=== PATIENT | female | born 1940 | race Caucasian/White ===

== ENCOUNTER → 2017-07-16 | Outpatient (CLI) | payer MEDICARE ==
[2017-07-16 09:12] LABS: Anisocytosis Slight; Appearance,Urine Clear (Clear); Bilirubin,Urine Negative (Negative); CH 27.3; CHCM 30.7; Glucose,Urine (UA) Negative (Negative); HCT 32.4 % (34.0-46.0); HDW 2.69; Hypochromasia Moderate; Ketones,Urine Negative (Negative); Leukocyte Esterase,Urine Negative (Negative); MCH 27.7 pg (25.0-35.0); MCV 89.5 fL (80.0-100.0); Mean Platelet Volume 7.1; Nitrite,Urine Negative (Negative); PH, Urine 5.5 (5.0-8.0); Protein,Urine Negative (Negative); RBC 3.62 m/uL (3.80-5.40); RDW 16.3 % (11.5-15.5); Specific Gravity,Urine 1.014 (1.001-1.035); UA Billing (MACRO vs. MICRO) CHEM; Urobilinogen,Urine <2.0 mg/dL (<2.0); WBC 4.3 k/uL (3.8-10.6)
[2017-07-16 09:16] LABS: INR 3.3 (<1.2); Partial Thromboplastin Time 48.6 sec (22.0-30.0)
[2017-07-16 09:34] LABS: ALT 23 U/L (9-52); AST 14 U/L (14-36); Alkaline Phosphatase 95 U/L (38-126); Anion Gap 8 mmol/L; Blood Urea Nitrogen 15 mg/dL (7-17); Calcium 9.3 mg/dL (8.4-10.2); Carbon Dioxide 27 mmol/L (22-30); Chloride 108 mmol/L (98-107); Glucose 104 mg/dL (74-99); Non-African American GFR(MDRD) >60 (>60 ml/min/1.73 sqM); Potassium 4.7 mmol/L (3.5-5.1); Sodium 143 mmol/L (137-145); Total Bilirubin 0.4 mg/dL (0.2-1.3); Total Protein 6.2 g/dL (6.3-8.2)
== END | disposition home or self-care (01) ==
LOC: LABWHC1 08:23
PROVIDERS: ATTEND Orthopaedic Surgery Sports Medicine
DX: Z01.810 Encounter for preprocedural cardiovascular examination (principal); Z01.812 Encounter for preprocedural laboratory examination
CPT/HCPCS: 36415; 80053; 81003; 85027; 85610; 85730; 87070

== ENCOUNTER 2017-08-07 12:54 | Inpatient (IN) | payer MEDICARE ==
[2017-07-31 10:43] VITALS: BMI 33.8
[~2017-08-07 12:54] MED LIST: ACETAMINOPHEN TAB 500 MG TAB PO ONE; DEXAMETHASONE SOD PHOSPHATE 10 MG/ML 1 ML VIAL IV ONE; HYDROmorphone 0.5 MG/0.5 ML SYRINGE IVP PRN; MELOXICAM 7.5 MG TAB PO ONE; ONDANSETRON 4 MG/2 ML VIAL IVP ONE; ROPIVACAINE 246.25 MG, EPINEPHrine 0.5 MG, KETOROLAC 30 MG, cloNIDine HCL/PF 80 MCG, WA... MISCELLANE ONE; TRANEXAMIC ACID 1,000 MG in SODIUM CHLORIDE 0.9% 100 ML IVPB ONE; ceFAZolin IN SWFI 2 GM/20 ML SYRINGE IVP ONE
[2017-08-07] MEDS ORDERED: LIDOCAINE 1% 20 ML VIAL (10MG/ML) FOR IV START INTRADERMA ONE (13:20)
[2017-08-07] MEDS: LACTATED RINGERS 1,000 ML IV SCH ×2 (13:25→18:17)
[2017-08-07 13:31] LABS: Anisocytosis Slight; Basophils % (A) 0 %; CH 27.3; CHCM 31.2; Eosinophils # (A) 0.1 k/uL (0-0.7); Eosinophils % (A) 1 %; HCT 34.7 % (34.0-46.0); HDW 2.75; HGB 11.1 gm/dL (11.4-16.0); Hypochromasia Slight; Luc # (Auto) 0.06; Luc % (Auto) 1; Lymphocytes # (A) 1.4 k/uL (1.0-4.8); Lymphocytes % (A) 28 %; MCH 28.2 pg (25.0-35.0); MCHC 32.1 g/dL (31.0-37.0); Monocytes # (A) 0.2 k/uL (0-1.0); Monocytes % (A) 4 %; Neutrophils # (A) 3.4 k/uL (1.3-7.7); Neutrophils % (A) 66 %; RBC 3.94 m/uL (3.80-5.40); RDW 16.6 % (11.5-15.5); WBC 5.2 k/uL (3.8-10.6)
[2017-08-07 13:39] LABS: INR 3.8 (<1.2); Prothrombin Time 36.7 sec (9.0-12.0)
[2017-08-07 13:45] LABS: Anion Gap 10 mmol/L; Blood Urea Nitrogen 14 mg/dL (7-17); Carbon Dioxide 23 mmol/L (22-30); Chloride 107 mmol/L (98-107); Glucose 112 mg/dL (74-99); Non-African American GFR(MDRD) >60 (>60 ml/min/1.73 sqM); Potassium 4.5 mmol/L (3.5-5.1); Sodium 140 mmol/L (137-145)
[2017-08-07] MEDS ORDERED: SODIUM CHLORIDE 0.9% 100 ML BAG ONE (14:08)
[2017-08-07] MEDS ORDERED: SUCCINYLCHOLINE CHLORIDE 100 MG/5 ML SYR IV ONE (14:08)
[2017-08-07] MEDS ORDERED: LIDOCAINE 1% INJ 10MG/ML (20 ML MDV) ONE (14:08)
[2017-08-07] MEDS ORDERED: fentaNYL (PF) 50 MCG/ML 2 ML AMP ONE (14:08)
[2017-08-07] MEDS ORDERED: PROPOFOL 10 MG/ML 20 ML VIAL IV ONE (14:08)
[2017-08-07] MEDS ORDERED: HYDROmorphone (PF) 1 MG/ML ONE (14:08)
[2017-08-07] MEDS ORDERED: ePHEDrine 50 MG/ML 1 ML AMP ONE (14:08)
[2017-08-07] MEDS ORDERED: TRANEXAMIC ACID 1,000 MG/10 ML VIAL ONE (14:08)
[2017-08-07] MEDS ORDERED: NALOXONE 0.4 MG/ML 1 ML VIAL IV PRN (14:13)
[2017-08-07] MEDS ORDERED: HYDROmorphone 0.5 MG/0.5 ML SYRINGE IVP PRN ×3 (14:13)
[2017-08-07] MEDS ORDERED: BISACODYL 10 MG SUPP RECTAL PRN (14:13)
[2017-08-07] MEDS ORDERED: NA PHOS,M-B/NA PHOS,DI-BA 133 ML ENEMA RECTAL PRN (14:13)
[2017-08-07] MEDS ORDERED: TEMAZEPAM 15 MG CAP PO PRN (14:13)
[2017-08-07] MEDS ORDERED: MAGNESIUM HYDROXIDE 2,400 MG/10 ML CUP PO PRN (14:13)
[2017-08-07] MEDS ORDERED: DIAZEPAM 5 MG TAB PO PRN (14:13)
[2017-08-07] MEDS ORDERED: traMADol 50 MG TAB PO PRN (14:13)
[2017-08-07] MEDS ORDERED: hydrOXYzine PAMOATE 25 MG CAP PO PRN (14:13)
[2017-08-07] MEDS ORDERED: ACETAMINOPHEN TAB 325 MG TAB PO PRN (14:13)
[2017-08-07] MEDS ORDERED: ONDANSETRON 4 MG/2 ML VIAL IVP PRN (14:13)
--- NOTE | 2017-08-07 17:07 | OP ---
OPERATIVE REPORT DATE OF PROCEDURE: 08/07/2017. PREOPERATIVE DIAGNOSIS: Left knee osteoarthrosis. POSTOPERATIVE DIAGNOSIS: Same. PROCEDURE PERFORMED: Left total knee arthroplasty. SURGEON: Bin Lovett MD. PRE K SPECIAL EDUCATION TEACHER: Dante STALLWORTH. ANESTHESIA: Was general endotracheal. ESTIMATED BLOOD LOSS: Was 100 mL. TOURNIQUET TIME: Was 47 minutes 250 mmHg. COMPLICATIONS: None apparent. DRAINS: None. DISPOSITION: Postanesthesia care unit. INDICATIONS: Lynda Renner is a very pleasant, 77-year-old female with longstanding history of left knee pain. History and physical examination are consist with advanced left knee osteoarthrosis. She has been through significant nonoperative management up to this point. Further treatment options were discussed and she has decided to go forward with left total knee arthroplasty. The risks of procedure were discussed with her in detail. These risks include, but are not limited to, risk of infection, nerve damage, bleeding, pain, and a small risk of deep vein thrombosis which could lead to fatal pulmonary embolism. There is also risk of loosening of the implant which could require revision operation. The patient understands these risks. All of her questions were answered to her satisfaction. Appropriate informed consent was obtained. PROCEDURE: The patient identified in preoperative holding area. Surgical sites marked by both the patient myself. She was given 2 g of Ancef IV for prophylactic purposes. She was then transferred to the operative suite. She was placed supine on the operative table. General anesthetic was then administered dosed per the anesthesia without apparent complication. Examination under anesthesia was then performed. The patient she had full extension. She had 100 degrees of flexion. The medial collateral ligament lateral collateral ligaments and posterior cruciate ligaments were stable. Tourniquet was then placed high on the left upper thigh well-padded in preparation for surgery. The patient's left lower extremity was then prepped and draped in usual sterile fashion. Standard surgical pause undertaken to ensure that we were operating on the correct site and that appropriate preoperative antibiotics were given. All staff in the room in agreement and we proceeded. The outlines of the patella were marked surgical pen. A planned 12 cm vertical incision centered over the patella was marked surgical pen. The leg was then exsanguinated with an Esmarch dressing. The knee was then flexed and tourniquet was inflated to 250 mmHg. The total tourniquet time for the procedure was 47 minutes. Incision was then made with a 10 blade scalpel. Dissection was carried down sharply overlying fascia. Great care was taken to minimize the skin flaps. The knee was then exposed using a standard medial parapatellar approach. A small cuff of quadriceps tendon was left for suturing. She was in a mild amount of varus preoperatively. A standard medial release was then made. Superficial medial collateral ligament was dissected off of the bone around the posterior aspect of the proximal tibia. The medial meniscus was then excised as well. The lateral meniscus was also released anteriorly. The leg was then externally rotated. The patella was everted. The knee was flexed. The retractors were then placed to protect the collateral ligaments. I then proceeded to remove the infrapatellar fat pad. This was excised sharply tangentially with fibers of the patellar tendon. I then proceeded to remove peripheral osteophytes. This was done with a rongeur. I then proceeded with the distal femoral resection. She did have near full extension. A planned 9 mm resection was then done. The femoral canal was then entered in the midline of the femur approximately 10 mm anterior to the origin of the posterior cruciate ligament. The vishal was then advanced down the center of the femur and placed intramedullary. Based on preop radiographs the angle between the anatomic and mechanical axis of the femur was approximately 4-5 degrees. The valgus angle of this distal femoral cutting guide was then set at 4 degrees for the left knee. The distal femoral cutting guide was then advanced over the intramedullary vishal. This was seated firmly against the femur. I then as mentioned planned to take 9 mm off the distal femur. The cutting block was then secured to the femur with pins. The jig was then removed. The distal femoral cut was made through the slot of the block. The pins were then removed. The distal femoral cutting block was removed. The accuracy of the distal femoral cuts was checked with 2 flat bars. I then proceed with femoral sizing. The posterior referencing sizing guide was held firmly against the resected distal surface of the femur. Posterior condyles were resting on the posterior plane of the guide. The sizing stylus was then placed onto the anterior femur. The size was measured as a size 6. I then assessed for femoral rotation. Plan was for 3 degrees of external rotation. 3 degrees of external rotation was placed onto the jig. These holes were then marked. I then confirmed the rotation by 3 separate methods. This is done using epicondylar axis as well as Whitesides line and posterior referencing. It was deemed that the external rotation was proper. I then went forward with placing the femoral cutting block. This placed over the previously placed pin holes. The Noble wing was then placed onto the anterior slots to ensure that we would not notch the anterior femur with the anterior femoral cut. I then proceeded with the anterior femoral cut. This was flushed with the anterior cortex of the femur. Posterior cuts were then made followed by the anterior chamfer cut, and then the posterior chamfer cut. The cutting block was then removed. Throughout the resection the collateral ligaments were protected with retractors. I then placed a trial size 6 femur. It fit very nicely. It was slightly wide mediolateral but the narrow would be nice and would fit nice and it fit flush with the distal end of the femur. The drill holes were then made. I then proceeded with the tibial cut. Planned for cruciate retaining knee. The guide was placed and set for varus valgus and for slope. The height was set for approximate 2 mm resection from the medial tibial plateau which was the lower side. I was happy with the alignment and amount of resection. The cutting block was then pinned to the proximal tibia. The alignment vishal was removed and the proximal tibia was resected with a reciprocating saw. Again this was done with retractors protecting the collateral ligaments as well as the posterior cruciate ligament. I then proceeded to evaluate the flexion and extension gaps. A 10 mm block was then placed. The flexion-extension gaps were equal. I then proceeded with resection of posterior osteophytes. She had very minimal posterior osteophytes. This was done with curved osteotome. This resected the posterior osteophytes and posterior capsule stripping was also done off the posterior aspect of the femur at this time. The osteophytes were removed. I then proceed with resection of the patella. The thickness of patella was measured using the caliper. The thickness was 20-22 mm. The thickness of the anticipated patellar dome was taken into account. The resection was then performed and confirmed to be equal in 4 quadrants using a caliper. Approximately 14 mm of bone remained after the resection. A 32 x 8.5 mm patellar trial was then placed. The holes were then drilled. The trial was then placed. I then proceeded with sizing the tibial plate. A size D tibial plate fit very nicely. I then placed the trial femur the tibial tray and the patellar button. A 10 mm trial insert was also placed. I then trialed up to a 14 mm insert. The components fit very nicely. She had full flexion extension. The extension flexion gaps were equal and stable to both varus and valgus stress. The patella tracked appropriately. The tibial tray rotation was marked with a Bovie. This was externally rotated properly. I then proceed with tibial preparation. I first drilled the femoral holes and removed femoral component. The tibial tray was then set for proper external rotation, as well as mediolateral placement onto the tibia. It was then pinned into place. I then proceeded with punching the keel. I then decided to proceed with cementing of all of our components. The knee was thoroughly irrigated with sterile saline solution via pulse lavage. The lateral geniculate artery was identified and cauterized. All blood was removed from the bone of the tibia femur and patella with pulse lavage. I then proceed with cementing. Two packs of antibiotic bone cement were prepared on the back table by the rn surgical. I then proceed with cementing of the tibia first. The cement was impacted into the keel as well as deeply seated into the bone. A second coat of cement was then placed. The tibia was then impacted into place. Excess cement was removed with Jaiden's and jokers. I then proceed with cementing the femoral component. Femoral component was also cemented using standard technique. Excess cement was removed. A 14 mm trial insert was then placed into the knee. It was brought into full extension with a constant axial load placed until the cement had hardened. The patellar component was then cemented. This was held firmly with a compressive device until the cement dried. When the cement had dried, the knee was taken out of extension. All excess cement was removed from around the prosthesis. I then trialed the knee with the 14 mm insert. The flexion-extension gaps were appropriate. The knee was stable. It came into full extension. I decided to go forward withy a 14 mm cross-linked cruciate-retaining tibial insert. Polyethylene was then placed onto the tibial tray and locked into place. The knee was then reduced. The knee was again further irrigated with sterile saline solution with antibiotic added. The tourniquet was then deflated. The total tourniquet time for the procedure was 47 minutes at 250 mmHg of mercury. Final components were Migel persona size 6 narrow cruciate-retaining femoral component, a size D tibial tray, a 14 mm cruciate-retaining polyethylene insert, and a 32 x 8.5 mm patella. I then proceeded with closure. Again, the knee was thoroughly irrigated. The quadriceps tendon and medial retinaculum were reapproximated with #2 Ethibond suture. The extensor mechanism was then closed with a running #2 Quill suture. Subcutaneous tissues were then closed with 2-0 Vicryl interrupted suture. The skin was closed in a running 3-0 Quill suture. Dermabond was applied to the incision. Sterile compressive dressing was then applied. All sponge, needle counts were deemed correct prior to closure. The patient tolerated the procedure apparent complication. She was transferred recovery room in stable condition. MMLISA / NHUNGN: [id number] /
--- NOTE | 2017-08-07 19:05 | XR ---
EXAMINATION TYPE: XR knee limited LT, 2 VIEWS DATE OF EXAM ORDERED: 08/07/2017 HISTORY: Postop left knee arthroplasty. COMPARISON: None. FINDINGS: A left knee arthroplasty has been performed. Prosthetic elements appear in good position. There is subcutaneous and intra-articular air. IMPRESSION: STATUS POST LEFT ARTHROPLASTY.
[2017-08-07] MEDS: SENNOSIDES-DOCUSATE SODIUM 1 EACH TAB PO SCH (21:02)
[2017-08-07] MEDS: MONTELUKAST 10 MG TAB PO SCH ×2 (21:02→21:30)
[2017-08-07] MEDS: ATORVASTATIN 10 MG TAB PO SCH (21:02)
[2017-08-07] MEDS: HYDROcodone/APAP 7.5-325MG 1 EACH TAB PO PRN (21:02)
[2017-08-07] MEDS: ceFAZolin IN SWFI 2 GM/20 ML SYRINGE IVP SCH (21:02)
[2017-08-08] MEDS: ceFAZolin IN SWFI 2 GM/20 ML SYRINGE IVP SCH (03:34)
[2017-08-08] MEDS: HYDROcodone/APAP 7.5-325MG 1 EACH TAB PO PRN ×4 (03:34→21:30)
[2017-08-08] MEDS: LACTATED RINGERS 1,000 ML IV SCH ×4 (04:42→22:00)
[2017-08-08] MEDS: LEVOTHYROXINE 50 MCG TAB PO SCH (06:21)
[2017-08-08 07:33] LABS: INR 4.2 (<1.2)
[2017-08-08 07:43] LABS: Anisocytosis Slight; Basophils % (A) 0 %; CH 27.3; CHCM 30.7; Eosinophils % (A) 0 %; HCT 27.4 % (34.0-46.0); HDW 2.64; Hypochromasia Moderate; Luc # (Auto) 0.08; Luc % (Auto) 2; Lymphocytes # (A) 1.1 k/uL (1.0-4.8); Lymphocytes % (A) 22 %; MCHC 31.3 g/dL (31.0-37.0); MCV 89.6 fL (80.0-100.0); Mean Platelet Volume 7.1; Monocytes # (A) 0.2 k/uL (0-1.0); Monocytes % (A) 4 %; Neutrophils # (A) 3.5 k/uL (1.3-7.7); Neutrophils % (A) 72 %; RBC 3.06 m/uL (3.80-5.40); RDW 16.2 % (11.5-15.5); WBC 4.9 k/uL (3.8-10.6); WBC (Perox) 5.36
[2017-08-08 07:45] LABS: HGB 8.6 gm/dL (11.4-16.0)
[2017-08-08] MEDS: LISINOPRIL 20 MG TAB PO SCH (08:53)
[2017-08-08] MEDS: ENOXAPARIN 40 MG/0.4 ML SYRINGE SQ SCH (08:55)
--- NOTE | 2017-08-08 09:09 | P.PN ---
Subjective Progress Note Date: 08/08/17 Principal diagnosis: S/P left TKA Patient is seen at bedside this morning. She is postop day #1 from a left total knee arthroplasty. She has pain at the surgical site as expected but denies any new complaints. She denies numbness, tingling or calf pain. Review of systems is negative for fever, chills, chest pain, shortness of breath or other. Objective - Vital Signs Vital signs: Vital Signs Temp 96.1 F L 08/08/17 07:12 Pulse 78 08/08/17 07:12 Resp 16 08/08/17 07:12 BP 100/59 08/08/17 07:12 Pulse Ox 100 08/08/17 07:12 Intake & Output 08/07/17 08/08/17 08/08/17 18:59 06:59 18:59 Intake Total 900 1500 Output Total 100 Balance 800 1500 Intake: IV 900 Intake, IV Titration 1000 Amount Lactated Ringers 1,000 ml 1000 @ 100 mls/hr IV .Q10H [facility] Rx#:[id number] Oral 500 Output: Estimated Blood Loss 100 Other: Voiding Method Toilet # Voids 1 - Exam Inspection reveals a benign surgical wound. There is no active bleeding or drainage. Neurovascular status is intact throughout the lower extremity with motor and sensation fully intact. Calf is soft and nontender. 2+ dorsalis pedis pulse and less than 2 second cap refill is present. - Constitutional General appearance: Present: no acute distress - Psychiatric Psychiatric: Present: A&O x's 3, appropriate affect, intact judgment & insight - Labs CBC & Chem 7: 08/08/17 06:50 08/07/17 13:20 Labs: Abnormal Lab Results - Last 24 Hours (Table) 08/07/17 08/07/17 08/07/17 Range/Units 13:20 13:20 13:20 RBC (3.80-5.40) m/uL Hgb 11.1 L (11.4-16.0) gm/dL Hct (34.0-46.0) % RDW 16.6 H (11.5-15.5) % Plt Count (150-450) k/uL PT 36.7 H (9.0-12.0) sec INR 3.8 H (<1.2) Glucose 112 H (74-99) mg/dL 08/08/17 08/08/17 Range/Units 06:50 06:50 RBC 3.06 L (3.80-5.40) m/uL Hgb 8.6 L D (11.4-16.0) gm/dL Hct 27.4 L (34.0-46.0) % RDW 16.2 H (11.5-15.5) % Plt Count 124 L (150-450) k/uL PT 41.0 H (9.0-12.0) sec INR 4.2 H (<1.2) Glucose (74-99) mg/dL Assessment and Plan (1) S/P total knee arthroplasty Narrative/Plan: She will continue with routine postop orthopedic protocol including pain management, wound care, physical therapy, DVT prophylaxis and medical management. Expect that she will transfer to rehab in 2 days. Current Visit: Yes Status: Acute Priority: Medium Code(s): Z96.659 - PRESENCE OF UNSPECIFIED ARTIFICIAL KNEE JOINT SNOMED Code(s): 4206413414460 Time with Patient: Less than 30
[2017-08-08] MEDS: BISACODYL 5 MG TABLET.DR PO SCH (10:42)
[2017-08-08] MEDS: MULTIVITAMINS, THERA 1 EACH TAB PO SCH (12:23)
--- NOTE | 2017-08-08 14:19 | P.DS ---
Providers Date of admission: 08/07/17 12:54 Expected date of discharge: 08/08/17 Attending physician: Bin Lovett Consults: 08/07/17 14:13 Consult Physician Routine Consulting Provider: Isaak Caceres Reason/Comments: post op medical management Do you want consulting provider notified?: Yes Primary care physician: Isaak Caceres - Discharge Diagnosis(es) (1) S/P total knee arthroplasty Patient was admitted to the OR on 08/07/17 to undergo left total knee arthroplasty. She had failed conservative measures as an outpatient and desired to proceed with elective surgery after given informed consent. She underwent the above procedure which he tolerated well without complication. Postoperative hospital course has remained without complication. On day of discharge she is afebrile, vital signs stable, labs within acceptable ranges, tolerating by mouth meds and diet, voiding without difficulty, positive flatus, denies abdominal pain or calf pain, pain is controlled on oral pain medication and has no new complaints. Wound is benign, neurovascular status is intact, calf is soft and nontender, abdomen soft and nontender. Review of systems is negative for numbness, tingling, fever, chills, chest pain, shortness breath, nausea, vomiting, dizziness, headaches, slurred speech or other. Current Visit: Yes Status: Acute Priority: Medium Procedures: Left TKA Patient Condition at Discharge: Good Plan - Discharge Summary Discharge Rx Participant: Yes New Discharge Prescriptions: New Docusate [Colace] 100 mg PO BID #60 capsule Enoxaparin [Lovenox] 40 mg SQ DAILY 14 Days #14 syringe HYDROcodone/APAP 7.5-325MG [[place] 7.5-325] 1 - 2 each PO Q6HR PRN #90 tab PRN Reason: Pain No Action Ramipril 10 mg PO QAM Loratadine [Claritin] 10 mg PO DAILY Atorvastatin [Lipitor] 10 mg PO HS Montelukast [Singulair] 10 mg PO HS Levothyroxine Sodium [Synthroid] 50 mcg PO QAM Fluticasone Nasal [place] [Flonase Nasal [place]] 1 spr EA NOSTRIL HS Bisacodyl [Dulcolax] 5 mg PO DAILY Fish Oil/Dha/Epa [Fish Oil 1,200 mg Fish Oil] 1 cap PO DAILY Multivitamins, Thera [Multivitamin (formulary)] 1 tab PO DAILY Biotin 5 mg PO DAILY Cetirizine HCl [Zyrtec] 10 mg PO DAILY Discharge Medication List Atorvastatin [Lipitor] 10 mg PO HS 07/30/16 [History] Fluticasone Nasal [place] [Flonase Nasal [place]] 1 spr EA NOSTRIL HS 07/30/16 [ History] Levothyroxine Sodium [Synthroid] 50 mcg PO QAM 07/30/16 [History] Loratadine [Claritin] 10 mg PO DAILY 07/30/16 [History] Montelukast [Singulair] 10 mg PO HS 07/30/16 [History] Ramipril 10 mg PO QAM 07/30/16 [History] Biotin 5 mg PO DAILY 07/31/17 [History] Bisacodyl [Dulcolax] 5 mg PO DAILY 07/31/17 [History] Fish Oil/Dha/Epa [Fish Oil 1,200 mg Fish Oil] 1 cap PO DAILY 07/31/17 [History] Multivitamins, Thera [Multivitamin (formulary)] 1 tab PO DAILY 07/31/17 [History ] Cetirizine HCl [Zyrtec] 10 mg PO DAILY 08/07/17 [History] Docusate [Colace] 100 mg PO BID #60 capsule 08/08/17 [Rx] Enoxaparin [Lovenox] 40 mg SQ DAILY 14 Days #14 syringe 08/08/17 [Rx] HYDROcodone/APAP 7.5-325MG [[place] 7.5-325] 1 - 2 each PO Q6HR PRN #90 tab [Rx] Follow up Appointment(s)/Referral(s): Milana Morris, [NON-STAFF] - As Needed Bin Lovett MD [STAFF PHYSICIAN] - 2 Weeks Activity/Diet/Wound Care/Special Instructions: Keep wound clean and dry Take meds as directed Follow-up with Dr. Lovett in office Weight-bear as tolerated May shower in 72 hours Discharge Disposition: TRANSFER TO SNF/ECF
--- NOTE | 2017-08-08 14:52 | P.CONS ---
History of Present Illness - Reason for Consult Consult date: 08/08/17 Medical management - History of Present Illness This is a 77-year-old female patient of Dr. Caceres with a past medical history of hypertension, hyperlipidemia, hypothyroidism, osteoarthritis, low- grade B-cell lymphoma, antiphospholipid antibody syndrome followed by Dr. Eid. Patient has been admitted to the hospital on the care of Dr. Lovett status post left total knee arthroplasty. Patient has had no postop complications. She has been afebrile. She has noted to have a drop in her hemoglobin from 11 to 8.6 with no plan for transfusion. Blood pressure has been on the low side but stable.INR is noted to be elevated at 4.2 and patient chronically runs about 3.5-3.8. patient is concerned about a rash on her right hand that is not itchy, no petechiae. This is not present anywhere else on her body. She does state that she was quite swollen yesterday but this is improved. She is complaining of knee pain after ambulating. Review of Systems All systems: negative Constitutional: Denies chills, Denies fever Eyes: denies blurred vision, denies pain Ears, nose, mouth and throat: Denies headache, Denies sore throat Cardiovascular: Denies chest pain, Denies shortness of breath Respiratory: Denies cough Gastrointestinal: Denies abdominal pain, Denies diarrhea, Denies nausea, Denies vomiting Genitourinary: Denies dysuria, Denies hematuria Musculoskeletal: Denies myalgias Musculoskeletal: left: knee pain Integumentary: Reports rash, Denies pruritus Neurological: Denies numbness, Denies weakness Psychiatric: Denies anxiety, Denies depression Endocrine: Denies fatigue, Denies weight change Past Medical History Past Medical History: Asthma, Cancer, Hyperlipidemia, Hypertension, Osteoarthritis (OA), Thyroid Disorder Additional Past Medical History / Comment(s): chronic anemia, antiphospholipid antibody syndrome, enlarged spleen,bronchial asthma with upper resp infections., constipation,low grade B cell lymphoma Aug 2016-no chemo or radiation, osteoporosis History of Any Multi-Drug Resistant Organisms: None Reported Past Surgical History: Adenoidectomy, Cholecystectomy, Orthopedic Surgery, Tonsillectomy Additional Past Surgical History / Comment(s): Left knee arthoscopy x2, D&C, Colonoscopy, EGD. Past Anesthesia/Blood Transfusion Reactions: Motion Sickness, Postoperative Nausea & Vomiting (PONV) Additional Past Anesthesia/Blood Transfusion Reaction / Comm: no hx blood transfusion Past Psychological History: No Psychological Hx Reported Smoking Status: Never smoker Past Alcohol Use History: Occasional Additional Past Alcohol Use History / Comment(s): patient is a lifelong nonsmoker. She drinks 1-2 glasses of wine per week. No illicit drug use. Past Drug Use History: None Reported - Past Family History Father Family Medical History: Cancer Additional Family Medical History / Comment(s): father has history of renal failure. Mother Family Medical History: AFIB Additional Family Medical History / Comment(s): mother has history of atrial fibrillation Sister(s) Additional Family Medical History / Comment(s): sister has history of thyroid problems. Medications and Allergies Home Medications Medication Instructions Recorded Confirmed Type Atorvastatin [Lipitor] 10 mg PO HS 07/30/16 08/07/17 History Fluticasone Nasal [place] [Flonase 1 spr EA NOSTRIL HS 07/30/16 08/07/17 History Nasal [place]] Levothyroxine Sodium [Synthroid] 50 mcg PO QAM 07/30/16 08/07/17 History Loratadine [Claritin] 10 mg PO DAILY 07/30/16 08/07/17 History Montelukast [Singulair] 10 mg PO HS 07/30/16 08/07/17 History Ramipril 10 mg PO QAM 07/30/16 08/07/17 History Biotin 5 mg PO DAILY 07/31/17 08/07/17 History Bisacodyl [Dulcolax] 5 mg PO DAILY 07/31/17 08/07/17 History Fish Oil/Dha/Epa [Fish Oil 1,200 1 cap PO DAILY 07/31/17 08/07/17 History mg Fish Oil] Multivitamins, Thera [Multivitamin 1 tab PO DAILY 07/31/17 08/07/17 History (formulary)] Cetirizine HCl [Zyrtec] 10 mg PO DAILY 08/07/17 08/07/17 History Docusate [Colace] 100 mg PO BID #60 capsule 08/08/17 Rx Enoxaparin [Lovenox] 40 mg SQ DAILY 14 Days #14 syringe 08/08/17 Rx HYDROcodone/APAP 7.5-325MG [[place] 1 - 2 each PO Q6HR PRN #90 tab 08/08/17 Rx 7.5-325] Allergies Allergy/AdvReac Type Severity Reaction Status Date / Time Penicillins Allergy Rash/Hives Verified 08/07/17 13:15 omeprazole AdvReac Nausea & Verified 08/07/17 13:15 Vomiting & Diarrhea Physical Exam Vitals: Vital Signs Temp Pulse Pulse Pulse Resp BP BP 08/08/17 07:12 96.1 F L 78 16 100/59 08/08/17 00:05 97.7 F 68 16 111/75 08/07/17 20:53 96.9 F L 72 16 115/57 08/07/17 19:25 74 106/55 08/07/17 19:10 73 99/56 08/07/17 18:55 78 103/63 08/07/17 18:40 71 101/66 08/07/17 18:25 78 105/51 08/07/17 18:10 75 112/62 08/07/17 17:55 64 107/54 08/07/17 17:40 72 103/61 08/07/17 17:25 97.7 F 83 16 113/56 08/07/17 17:00 82 16 118/57 08/07/17 16:43 85 18 118/56 08/07/17 16:30 90 18 124/59 08/07/17 16:07 98.1 F 95 16 125/62 08/07/17 13:13 97.7 F 104 H 18 116/70 Pulse Ox 08/08/17 07:12 100 08/08/17 00:05 98 08/07/17 20:53 95 08/07/17 19:25 08/07/17 19:10 08/07/17 18:55 08/07/17 18:40 08/07/17 18:25 08/07/17 18:10 08/07/17 17:55 08/07/17 17:40 08/07/17 17:25 95 08/07/17 17:00 94 L 08/07/17 16:43 92 L 08/07/17 16:30 92 L 08/07/17 16:07 95 08/07/17 13:13 96 Intake and Output 08/07/17 08/08/17 08/08/17 22:59 06:59 14:59 Intake Total 50 1500 Output Total 100 Balance -50 1500 Intake: IV 50 Intake, IV Titration 1000 Amount Lactated Ringers 1,000 ml 1000 @ 100 mls/hr IV .Q10H [facility] Rx#:[id number] Oral 500 Output: Estimated Blood Loss 100 Other: Voiding Method Toilet # Voids 1 1 Gen: This is a 77-year-old female. She is sitting up in bed appears to be in no acute distress. HEENT: Head is atraumatic, normocephalic. Pupils equal, round. Sclerae is anicteric. NECK: Supple. No JVD. No lymphadenopathy. No thyromegaly. LUNGS: Clear to auscultation. No wheezes or rhonchi. No intercostal retractions. HEART: Regular rate and rhythm. No murmur. ABDOMEN: Soft. Bowel sounds are present. No masses. No tenderness. EXTREMITIES: No pedal edema. No calf tenderness.dressing in place to the left knee. Right hand has small rash noted on the dorsal surface of her hand. NEUROLOGICAL: Patient is awake, alert and oriented x3. Cranial nerves 2 through 12 are grossly intact. Results CBC & Chem 7: 08/08/17 06:50 08/07/17 13:20 Labs: Abnormal Lab Results - Last 24 Hours (Table) 08/07/17 08/07/17 08/07/17 Range/Units 13:20 13:20 13:20 RBC (3.80-5.40) m/uL Hgb 11.1 L (11.4-16.0) gm/dL Hct (34.0-46.0) % RDW 16.6 H (11.5-15.5) % Plt Count (150-450) k/uL PT 36.7 H (9.0-12.0) sec INR 3.8 H (<1.2) Glucose 112 H (74-99) mg/dL 08/08/17 08/08/17 Range/Units 06:50 06:50 RBC 3.06 L (3.80-5.40) m/uL Hgb 8.6 L D (11.4-16.0) gm/dL Hct 27.4 L (34.0-46.0) % RDW 16.2 H (11.5-15.5) % Plt Count 124 L (150-450) k/uL PT 41.0 H (9.0-12.0) sec INR 4.2 H (<1.2) Glucose (74-99) mg/dL Assessment and Plan Plan: 1. Osteoarthritis status post post left total knee arthroplasty. Continue current pain management, PT, OT. Incentive spirometry to reduce incidence of atelectasis and hospital-acquired pneumonia. 2. Hypertension. Patient is unremarkable 10 mg every morning. 3. Hyperlipidemia. Continue Lipitor 10 mg at bedtime. 4. Seasonal ALLERGIES. Continue Singulair, Claritin, Flonase. 5. Hypothyroidism. Continue Synthroid. 6. Antiphospholipid antibody syndrome with chronically elevated INR. No need for intervention. 7. Rash right hand possibly secondary to edema from IV fluids. This is not itchy at this time. Patient may use hydrocortisone cream if it does become itchy. Just monitor at this time. 8. Acute blood loss anemia with hemoglobin of 8.6. No plan for transfusion. Continue to monitor. Discharge plan: Milana Morris Impression and plan of care have been directed as dictated by the signing physician. Leanna Monroy nurse practitioner acting as scribe for signing physician.
[2017-08-08] MEDS: FERROUS SULFATE 325 MG TAB PO SCH (18:42)
[2017-08-08] MEDS: FLUTICASONE 50MCG/SPRAY NASAL 16GM EA NOSTRIL SCH (21:26)
[2017-08-08] MEDS: ATORVASTATIN 10 MG TAB PO SCH (21:26)
[2017-08-08] MEDS: MONTELUKAST 10 MG TAB PO SCH (21:27)
[2017-08-08] MEDS: SENNOSIDES-DOCUSATE SODIUM 1 EACH TAB PO SCH (21:27)
[2017-08-09] MEDS: HYDROcodone/APAP 7.5-325MG 1 EACH TAB PO PRN ×4 (03:14→19:49)
[2017-08-09] MEDS: LACTATED RINGERS 1,000 ML IV SCH ×2 (04:50→18:11)
[2017-08-09] MEDS: LEVOTHYROXINE 50 MCG TAB PO SCH (06:17)
[2017-08-09 07:26] LABS: INR 3.8 (<1.2); Prothrombin Time 36.7 sec (9.0-12.0)
[2017-08-09 07:51] LABS: CH 27.5; CHCM 31.3; HCT 27.3 % (34.0-46.0); HDW 2.78; HGB 8.4 gm/dL (11.4-16.0); Hypochromasia Slight; MCH 27.1 pg (25.0-35.0); MCHC 30.7 g/dL (31.0-37.0); MCV 88.5 fL (80.0-100.0); Mean Platelet Volume 6.6; RBC 3.08 m/uL (3.80-5.40); RDW 15.2 % (11.5-15.5); WBC 4.8 k/uL (3.8-10.6)
[2017-08-09] MEDS: BISACODYL 5 MG TABLET.DR PO SCH (08:26)
[2017-08-09] MEDS: ENOXAPARIN 40 MG/0.4 ML SYRINGE SQ SCH (08:27)
[2017-08-09] MEDS: LORATADINE 10 MG TAB PO SCH (08:27)
--- NOTE | 2017-08-09 12:25 | P.PN ---
Subjective Progress Note Date: 08/09/17 This is a 77-year-old female patient of Dr. Caceres with a past medical history of hypertension, hyperlipidemia, hypothyroidism, osteoarthritis, low- grade B-cell lymphoma, antiphospholipid antibody syndrome followed by Dr. Eid. Patient has been admitted to the hospital on the care of Dr. Lovett status post left total knee arthroplasty. Patient has had no postop complications. She has been afebrile. She has noted to have a drop in her hemoglobin from 11 to 8.6 with no plan for transfusion. Blood pressure has been on the low side but stable.INR is noted to be elevated at 4.2 and patient chronically runs about 3.5-3.8. patient is concerned about a rash on her right hand that is not itchy, no petechiae. This is not present anywhere else on her body. She does state that she was quite swollen yesterday but this is improved. She is complaining of knee pain after ambulating. 08/09: There is plan in place for [facility] for subacute rehab but doubt that this can be arranged over the weekend. Hemoglobin today is 8.4. No plan for transfusion. INR is at 3.8. Patient's blood pressure has been on the lower side but she has been asymptomatic. Objective - Vital Signs Vital signs: Vital Signs Temp 97.8 F 08/09/17 04:51 Pulse 65 08/09/17 04:51 Resp 16 08/09/17 04:51 BP 110/70 08/09/17 04:51 Pulse Ox 96 08/09/17 04:51 Intake & Output 08/08/17 08/09/17 08/09/17 18:59 06:59 18:59 Intake Total 500 Output Total 1100 Balance -600 Intake: Oral 500 Output: Urine 1100 Other: Voiding Method Toilet # Voids 2 - Exam Gen: This is a 77-year-old female. She is sitting up in bed appears to be in no acute distress. HEENT: Head is atraumatic, normocephalic. Pupils equal, round. Sclerae is anicteric. NECK: Supple. No JVD. No lymphadenopathy. No thyromegaly. LUNGS: Clear to auscultation. No wheezes or rhonchi. No intercostal retractions. HEART: Regular rate and rhythm. No murmur. ABDOMEN: Soft. Bowel sounds are present. No masses. No tenderness. EXTREMITIES: No pedal edema. No calf tenderness.dressing in place to the left knee. Right hand has small rash noted on the dorsal surface of her hand. NEUROLOGICAL: Patient is awake, alert and oriented x3. Cranial nerves 2 through 12 are grossly intact. - Labs CBC & Chem 7: 08/09/17 07:04 08/07/17 13:20 Labs: Abnormal Lab Results - Last 24 Hours (Table) 08/09/17 08/09/17 Range/Units 07:04 07:04 RBC 3.08 L (3.80-5.40) m/uL Hgb 8.4 L (11.4-16.0) gm/dL Hct 27.3 L (34.0-46.0) % MCHC 30.7 L (31.0-37.0) g/dL PT 36.7 H (9.0-12.0) sec INR 3.8 H (<1.2) Assessment and Plan Plan: 1. Osteoarthritis status post post left total knee arthroplasty. Continue current pain management, PT, OT. Incentive spirometry to reduce incidence of atelectasis and hospital-acquired pneumonia. 2. Hypertension. Patient is unremarkable 10 mg every morning. 3. Hyperlipidemia. Continue Lipitor 10 mg at bedtime. 4. Seasonal ALLERGIES. Continue Singulair, Claritin, Flonase. 5. Hypothyroidism. Continue Synthroid. 6. Antiphospholipid antibody syndrome with chronically elevated INR. No need for intervention. 7. Rash right hand possibly secondary to edema from IV fluids. This is not itchy at this time. Patient may use hydrocortisone cream if it does become itchy. Just monitor at this time. 8. Acute blood loss anemia with hemoglobin of 8.6. No plan for transfusion. Continue to monitor. Discharge plan: Milana Morris Impression and plan of care have been directed as dictated by the signing physician. Leanna Monroy nurse practitioner acting as scribe for signing physician.
[2017-08-09] MEDS: LISINOPRIL 20 MG TAB PO SCH (13:26)
[2017-08-09] MEDS: FERROUS SULFATE 325 MG TAB PO SCH (13:30)
[2017-08-09] MEDS: MULTIVITAMINS, THERA 1 EACH TAB PO SCH (13:30)
--- NOTE | 2017-08-09 19:00 | P.PN ---
Subjective Progress Note Date: 08/09/17 Principal diagnosis: S/P left TKA Patient is seen at bedside this morning. She is postop day #2 from a left total knee arthroplasty. She has pain at the surgical site as expected but denies any new complaints. She denies numbness, tingling or calf pain. Review of systems is negative for fever, chills, chest pain, shortness of breath or other. Objective - Vital Signs Vital signs: Vital Signs Temp 98 F 08/09/17 15:00 Pulse 73 08/09/17 15:00 Resp 16 08/09/17 15:00 BP 116/73 08/09/17 15:00 Pulse Ox 97 08/09/17 15:00 Intake & Output 08/08/17 08/09/17 08/09/17 18:59 06:59 18:59 Intake Total 500 360 Output Total 1100 Balance -600 360 Intake: Oral 500 360 Output: Urine 1100 Other: Voiding Method Toilet # Voids 2 2 - Exam Inspection reveals a benign surgical wound. There is no active bleeding or drainage. Neurovascular status is intact throughout the lower extremity with motor and sensation fully intact. Calf is soft and nontender. 2+ dorsalis pedis pulse and less than 2 second cap refill is present. - Constitutional General appearance: Present: no acute distress - Psychiatric Psychiatric: Present: A&O x's 3, appropriate affect, intact judgment & insight - Labs CBC & Chem 7: 08/09/17 07:04 08/07/17 13:20 Labs: Abnormal Lab Results - Last 24 Hours (Table) 08/09/17 08/09/17 Range/Units 07:04 07:04 RBC 3.08 L (3.80-5.40) m/uL Hgb 8.4 L (11.4-16.0) gm/dL Hct 27.3 L (34.0-46.0) % MCHC 30.7 L (31.0-37.0) g/dL PT 36.7 H (9.0-12.0) sec INR 3.8 H (<1.2) Assessment and Plan (1) S/P total knee arthroplasty Narrative/Plan: She will continue with routine postop orthopedic protocol including pain management, wound care, physical therapy, DVT prophylaxis and medical management. Expect that she will transfer to rehab in 2 days. Current Visit: Yes Status: Acute Priority: Medium Code(s): Z96.659 - PRESENCE OF UNSPECIFIED ARTIFICIAL KNEE JOINT SNOMED Code(s): 6703593276802 Time with Patient: Less than 30
[2017-08-09] MEDS: MONTELUKAST 10 MG TAB PO SCH (20:52)
[2017-08-09] MEDS: SENNOSIDES-DOCUSATE SODIUM 1 EACH TAB PO SCH (20:52)
[2017-08-09] MEDS: ATORVASTATIN 10 MG TAB PO SCH (20:52)
[2017-08-09] MEDS: FLUTICASONE 50MCG/SPRAY NASAL 16GM EA NOSTRIL SCH (20:52)
[2017-08-10] MEDS: HYDROcodone/APAP 7.5-325MG 1 EACH TAB PO PRN ×4 (01:41→20:08)
[2017-08-10] MEDS: LEVOTHYROXINE 50 MCG TAB PO SCH (06:13)
[2017-08-10 07:01] LABS: INR 3.7 (<1.2); Prothrombin Time 35.9 sec (9.0-12.0)
[2017-08-10 07:07] LABS: Anisocytosis Slight; Basophils % (A) 1 %; CH 27.1; CHCM 30.3; Eosinophils # (A) 0.1 k/uL (0-0.7); Eosinophils % (A) 2 %; HCT 27.3 % (34.0-46.0); HDW 2.62; HGB 8.5 gm/dL (11.4-16.0); Hypochromasia Moderate; Luc # (Auto) 0.06; Luc % (Auto) 2; Lymphocytes # (A) 1.3 k/uL (1.0-4.8); Lymphocytes % (A) 38 %; MCHC 31.1 g/dL (31.0-37.0); MCV 89.9 fL (80.0-100.0); Mean Platelet Volume 7.3; Monocytes # (A) 0.1 k/uL (0-1.0); Monocytes % (A) 4 %; Neutrophils # (A) 1.9 k/uL (1.3-7.7); Neutrophils % (A) 54 %; RBC 3.03 m/uL (3.80-5.40); RDW 16.2 % (11.5-15.5); WBC 3.5 k/uL (3.8-10.6); WBC (Perox) 3.85
[2017-08-10] MEDS: LORATADINE 10 MG TAB PO SCH (07:45)
[2017-08-10] MEDS: BISACODYL 5 MG TABLET.DR PO SCH (07:45)
[2017-08-10] MEDS: LISINOPRIL 20 MG TAB PO SCH (07:45)
[2017-08-10] MEDS: ENOXAPARIN 40 MG/0.4 ML SYRINGE SQ SCH (10:08)
--- NOTE | 2017-08-10 11:47 | P.PN ---
Subjective Progress Note Date: 08/10/17 Principal diagnosis: S/P left TKA Patient is seen at bedside this morning. She is postop day #3 from a left total knee arthroplasty. She has pain at the surgical site as expected but denies any new complaints. She states she had incident where water from ice pack hit her eye but it is currently not bothering her. She has some acid reflux that she would like pepcid for. She denies numbness, tingling or calf pain. Review of systems is negative for fever, chills, chest pain, shortness of breath or other. Objective - Vital Signs Vital signs: Vital Signs Temp 98.3 F 08/10/17 07:00 Pulse 79 08/10/17 07:00 Resp 16 08/10/17 07:00 BP 105/69 08/10/17 07:00 Pulse Ox 98 08/10/17 07:00 Intake & Output 08/09/17 08/10/17 08/10/17 18:59 06:59 18:59 Intake Total 360 2210 Balance 360 2210 Intake: Oral 360 2210 Other: Voiding Method Toilet # Voids 2 2 # Bowel Movements 1 - Exam Inspection reveals a benign surgical wound. There is no active bleeding or drainage. Neurovascular status is intact throughout the lower extremity with motor and sensation fully intact. Calf is soft and nontender. 2+ dorsalis pedis pulse and less than 2 second cap refill is present. There is no conjuctivitis or apparent irritation to the eyes. - Constitutional General appearance: Present: no acute distress - Psychiatric Psychiatric: Present: A&O x's 3, appropriate affect, intact judgment & insight - Labs CBC & Chem 7: 08/10/17 06:10 08/07/17 13:20 Labs: Abnormal Lab Results - Last 24 Hours (Table) 08/10/17 08/10/17 Range/Units 06:10 06:10 WBC 3.5 L (3.8-10.6) k/uL RBC 3.03 L (3.80-5.40) m/uL Hgb 8.5 L (11.4-16.0) gm/dL Hct 27.3 L (34.0-46.0) % RDW 16.2 H (11.5-15.5) % Plt Count 149 L (150-450) k/uL PT 35.9 H (9.0-12.0) sec INR 3.7 H (<1.2) Assessment and Plan (1) S/P total knee arthroplasty Narrative/Plan: She will continue with routine postop orthopedic protocol including pain management, wound care, physical therapy, DVT prophylaxis and medical management. Expect that she will transfer to rehab tomorrow. Pepcid is ordered. Current Visit: Yes Status: Acute Priority: Medium Code(s): Z96.659 - PRESENCE OF UNSPECIFIED ARTIFICIAL KNEE JOINT SNOMED Code(s): 3869065085202 Time with Patient: Less than 30
[2017-08-10] MEDS: MULTIVITAMINS, THERA 1 EACH TAB PO SCH (12:46)
[2017-08-10] MEDS: FERROUS SULFATE 325 MG TAB PO SCH (12:46)
[2017-08-10] MEDS: FAMOTIDINE 20 MG TAB PO SCH (13:56)
[2017-08-10] MEDS: SENNOSIDES-DOCUSATE SODIUM 1 EACH TAB PO SCH (20:08)
[2017-08-10] MEDS: FLUTICASONE 50MCG/SPRAY NASAL 16GM EA NOSTRIL SCH (20:12)
[2017-08-10] MEDS: MONTELUKAST 10 MG TAB PO SCH (20:12)
[2017-08-10] MEDS: ATORVASTATIN 10 MG TAB PO SCH (20:12)
[2017-08-11] MEDS: HYDROcodone/APAP 7.5-325MG 1 EACH TAB PO PRN ×2 (02:43→09:03)
[2017-08-11] MEDS: LEVOTHYROXINE 50 MCG TAB PO SCH (05:41)
[2017-08-11 07:04] LABS: INR 3.5 (<1.2); Prothrombin Time 33.9 sec (9.0-12.0)
[2017-08-11 07:53] VITALS: PULSE 71; RESP 16; TEMP 97.9
[2017-08-11] MEDS: LISINOPRIL 20 MG TAB PO SCH ×2 (07:53→09:13)
[2017-08-11] MEDS ORDERED: FAMOTIDINE 20 MG TAB PO SCH (09:00)
[2017-08-11] MEDS: ENOXAPARIN 40 MG/0.4 ML SYRINGE SQ SCH (09:04)
[2017-08-11] MEDS: BISACODYL 5 MG TABLET.DR PO SCH (09:04)
[2017-08-11] MEDS: FAMOTIDINE 20 MG TAB PO SCH (09:04)
[2017-08-11] MEDS: LORATADINE 10 MG TAB PO SCH (09:04)
[2017-08-11 09:09] VITALS: BP 119/72
--- NOTE | 2017-08-11 10:49 | XR ---
EXAMINATION TYPE: XR chest 2V DATE OF EXAM: 08/11/2017 COMPARISON: Prior chest x-ray 02/21/2014 HISTORY: Extended-care facility placement TECHNIQUE: Frontal and lateral views of the chest are obtained. FINDINGS: Some calcification along the right hemidiaphragm again noted. There is no pneumothorax or pleural effusion. Cardiomediastinal silhouette, pulmonary vascularity and luci are stable. No airspac e disease. IMPRESSION: Stable exam, no acute cardiopulmonary disease.
== END 2017-08-11 11:37 | DRG 470 ==
LOC: 2ORMAIN 12:54 → 3SUR 16:27
PROVIDERS: ADMIT Orthopaedic Surgery Sports Medicine; ATTEND Orthopaedic Surgery Sports Medicine
PROC: 0SRD0J9 Replacement of Left Knee Joint with Synthetic Substitute, Cemented, Open Approach (ICD-10-PCS; principal; 2017-08-07 14:35)
DX: M17.12 Unilateral primary osteoarthritis, left knee (principal); C85.17 Unspecified B-cell lymphoma, spleen; D68.61 Antiphospholipid syndrome; D62 Acute posthemorrhagic anemia; I10 Essential (primary) hypertension; E03.9 Hypothyroidism, unspecified; E78.5 Hyperlipidemia, unspecified; J45.909 Unspecified asthma, uncomplicated; K21.9 Gastro-esophageal reflux disease without esophagitis; M81.0 Age-related osteoporosis without current pathological fracture; F41.9 Anxiety disorder, unspecified; R21 Rash and other nonspecific skin eruption; R60.9 Edema, unspecified; E55.9 Vitamin D deficiency, unspecified; D50.9 Iron deficiency anemia, unspecified; Z79.899 Other long term (current) drug therapy; Z88.0 Allergy status to penicillin; Z88.8 Allergy status to other drugs, medicaments and biological substances; Z82.49 Family history of ischemic heart disease and other diseases of the circulatory system
CPT/HCPCS: 71020; 80048; 85025; 85027; 85610

== ENCOUNTER → 2017-09-23 | Outpatient (CLI) | payer MEDICARE ==
--- NOTE | 2017-09-23 15:25 | US ---
EXAMINATION TYPE: US axilla LT DATE OF EXAM: 09/23/2017 COMPARISON: NONE CLINICAL HISTORY: R59 Lymphadenopathy. Patient stated has low grade B cell lymphoma and her referring physician noted left axillary palpable. US left axilla: Two hyperechoic lymph nodes are imaged with larger node = 3.1 x 3.6 x 1.5cm and smal ler node = 1.3 x 1.0 x 0.8cm. IMPRESSION: Left axillary adenopathy with the largest lymph node measuring 1.5 cm in short axis. Lym phomatous involvement confirmed with biopsy if indicated.
== END | disposition home or self-care (01) ==
LOC: RADUSWWP 14:10
PROVIDERS: ATTEND Internal Medicine Hematology & Oncology
DX: R59.0 Localized enlarged lymph nodes (principal)

== ENCOUNTER 2017-09-30 08:42 | Day surgery (SDC) | payer MEDICARE ==
[2017-09-30 09:06] VITALS: BP 116/67; PULSE 78; RESP 20; TEMP 97.3
[2017-09-30] MEDS ORDERED: ALPRAZolam 0.25 MG TAB PO STA (09:06)
--- NOTE | 2017-09-30 13:06 | US ---
EXAMINATION TYPE: US biopsy lymph node DATE OF EXAM: 09/30/2017 HISTORY: Left axillary adenopathy, mass. FINDINGS: Maximal barrier technique was utilized. The skin overlying a suitable path to the patient' s left axillary mass was localized with ultrasound and the overlying skin prepped and draped. Ultras ound was utilized with sterile technique. Lidocaine was used for local anesthesia. A skin gonzález was made with a scalpel. An 18-gauge needle was advanced under direct ultrasound guidance and core speci men obtained of the mass through a 17-gauge guide. Specimen submitted in formalin to Pathology. 3 p asses were made in total. Following the procedure, hemostasis achieved and the patient is discharged in stable condition without complication. IMPRESSION:STATUS POST ULTRASOUND GUIDED CORE BIOPSY OF left axillary MASS, PATHOLOGY IS PENDING. TH IS PROCEDURE IS PERFORMED BY THE UNDERSIGNED.
== END 2017-09-30 11:20 | disposition home or self-care (01) ==
LOC: RADPROMAIN 08:42
PROVIDERS: ATTEND Internal Medicine Hematology & Oncology
DX: R59.1 Generalized enlarged lymph nodes (principal)
CPT/HCPCS: 38505; 76942; 88305

== ENCOUNTER 2017-11-12 08:53 | Day surgery (SDC) | payer MEDICARE ==
[2017-11-07 09:22] VITALS: BMI 30.7
[~2017-11-12 08:53] MED LIST changes: -ACETAMINOPHEN TAB 500 MG TAB PO ONE; +HEPARIN SODIUM,PORCINE 5,000 UNIT/ML 1 ML VIAL SQ ONE; +LACTATED RINGERS 1,000 ML IV SCH; +LIDOCAINE 1% 20 ML VIAL (10MG/ML) FOR IV START INTRADERMA PRN; -MELOXICAM 7.5 MG TAB PO ONE; +Pre Op ABX Message 1 EACH MISC MISCELLANE ONE; -ROPIVACAINE 246.25 MG, EPINEPHrine 0.5 MG, KETOROLAC 30 MG, cloNIDine HCL/PF 80 MCG, WA... MISCELLANE ONE; -TRANEXAMIC ACID 1,000 MG in SODIUM CHLORIDE 0.9% 100 ML IVPB ONE; -ceFAZolin IN SWFI 2 GM/20 ML SYRINGE IVP ONE
[2017-11-12 09:36] VITALS: TEMP 97.8
[2017-11-12] MEDS ORDERED: SUCCINYLCHOLINE CHLORIDE 100 MG/5 ML SYR IV ONE (12:08)
[2017-11-12] MEDS ORDERED: LIDOCAINE 1% INJ 10MG/ML (20 ML MDV) ONE (12:08)
[2017-11-12] MEDS ORDERED: MIDAZOLAM 2 MG/2 ML VIAL ONE (12:08)
[2017-11-12] MEDS ORDERED: ePHEDrine SULFATE/0.9% NACL/PF 50 MG/5 ML SYRINGE IV ONE (12:08)
[2017-11-12] MEDS ORDERED: PROPOFOL 10 MG/ML 20 ML VIAL IV ONE (12:08)
[2017-11-12] MEDS ORDERED: fentaNYL (PF) 50 MCG/ML 2 ML AMP ONE (12:08)
[2017-11-12] MEDS ORDERED: PHENYLEPHRINE-0.9% NACL SYG 1 MG/10 ML SYRINGE ONE (12:08)
[2017-11-12] MEDS ORDERED: BUPIVACAINE (PF) 0.25% 30 ML VIAL SQ ONE ×2 (12:36→12:56)
[2017-11-12] MEDS ORDERED: HYDROcodone/APAP 5-325MG 1 EACH TAB PO PRN (13:09)
[2017-11-12] MEDS ORDERED: NALOXONE 0.4 MG/ML 1 ML VIAL IV PRN (13:09)
--- NOTE | 2017-11-12 13:16 | P.OP ---
Date of Procedure: 11/12/17 Procedure(s) Performed: PREOPERATIVE DIAGNOSIS: Left axillary lymphadenopathy POSTOPERATIVE DIAGNOSIS: Same PROCEDURE: Axillary lymph node biopsy SURGEON: Meche EBL: Manuel Mora ANESTHESIA: Gen. COMPLICATIONS: None OPERATIVE PROCEDURE: The patient was placed in the operative table in the supine position. The patient was placed under general anesthesia. The left axilla was prepped and draped in usual sterile fashion. A curvilinear incision was made using a scalpel. The saphenous tissues were divided using electrocautery. The large lymph node was identified. This measured about 3 x 1.5 cm in size. This was excised using electrocautery. Small lymphatic vessels were divided using the clip poultry killer. The specimen was sent fresh to pathology. The subcutaneous tissues were closed using 3-0 Vicryl sutures. The skin was closed using 4-0 Monocryl sutures. The Steri-Strips were used on the incision site along with sterile dressings. DISPOSITION: Stable to recovery room
[2017-11-12] MEDS ORDERED: HYDROcodone/APAP 7.5-325MG 1 EACH TAB PO ONE (14:42)
[2017-11-12 14:59] VITALS: RESP 18
[2017-11-12 15:03] VITALS: BP 122/73; PULSE 96
== END 2017-11-12 15:50 | disposition home or self-care (01) ==
LOC: OR 08:53
PROVIDERS: ATTEND Surgery
DX: C85.14 Unspecified B-cell lymphoma, lymph nodes of axilla and upper limb (principal); I10 Essential (primary) hypertension; E78.5 Hyperlipidemia, unspecified; E03.9 Hypothyroidism, unspecified; Z79.82 Long term (current) use of aspirin; Z79.1 Long term (current) use of non-steroidal anti-inflammatories (NSAID); Z79.891 Long term (current) use of opiate analgesic; Z79.899 Other long term (current) drug therapy; Z88.0 Allergy status to penicillin; Z88.8 Allergy status to other drugs, medicaments and biological substances; Z80.7 Family history of other malignant neoplasms of lymphoid, hematopoietic and related tissues
CPT/HCPCS: 38525; 88342; 88307; 88341; J2250; J1644; J1100; J2405; J2001; J3010; J2370; J0330; J2704

== ENCOUNTER → 2018-03-23 | Outpatient (CLI) | payer MEDICARE ==
[2018-03-23 12:35] LABS: HCT 33.4 % (34.0-46.0); HGB 10.3 gm/dL (11.4-16.0); Hypochromasia Slight; MCV 90.4 fL (80.0-100.0); Mean Platelet Volume 6.6; Platelet Count 153 k/uL (150-450); RDW 15.3 % (11.5-15.5); WBC 4.7 k/uL (3.8-10.6)
[2018-03-23 12:44] LABS: INR 3.8 (<1.2); Partial Thromboplastin Time 50.2 sec (22.0-30.0); Prothrombin Time 34.4 sec (9.0-12.0)
== END | disposition home or self-care (01) ==
LOC: LABWHC1 11:09
PROVIDERS: ATTEND Physical Medicine & Rehabilitation
DX: M54.5 Low back pain (principal); M47.817 Spondylosis without myelopathy or radiculopathy, lumbosacral region; M51.16 Intervertebral disc disorders with radiculopathy, lumbar region; Z98.890 Other specified postprocedural states; Z96.652 Presence of left artificial knee joint; M17.11 Unilateral primary osteoarthritis, right knee; M25.561 Pain in right knee; Z79.01 Long term (current) use of anticoagulants
CPT/HCPCS: 36415; 85027; 85610; 85730

== ENCOUNTER 2019-03-20 17:36 | Inpatient (IN) | payer MEDICARE ==
[2019-03-20] MEDS ORDERED: SODIUM CHLORIDE 0.9% 1,000 ML IV ONE (18:57)
--- NOTE | 2019-03-20 19:01 | ED ---
Abdominal Pain HPI - General Chief Complaint: Abdominal Pain Stated Complaint: ABD PAIN Time Seen by Provider: 03/20/19 18:47 Source: patient Mode of arrival: ambulatory Limitations: no limitations - History of Present Illness Initial Comments: Patient is a 78-year-old female presents with a chief complaint of lower abdominal pain since yesterday. Patient states that it feels like an ache that is sharp at times with radiation to the back. She has not had any previous episodes of the same. She cannot identify an inciting incident. Patient states that pain is aggravated by changing positions. There are no alleviating factors. She states that the pain is waxing and waning. She denies any chest pain or shortness of breath. She states that she had a fever of 99.3. She denies any changes in bowel habits, dysuria, or hematuria. She does state that she was using the restroom frequently last night - Related Data Home Medications Medication Instructions Recorded Confirmed Atorvastatin [Lipitor] 10 mg PO HS 07/30/16 03/20/19 Fluticasone Nasal [place] [Flonase 1 spr EA NOSTRIL BID 07/30/16 03/20/19 Nasal [place]] Levothyroxine Sodium [Synthroid] 50 mcg PO QAM 07/30/16 03/20/19 Montelukast [Singulair] 10 mg PO HS 07/30/16 03/20/19 Ramipril 10 mg PO QAM 07/30/16 03/20/19 Zolpidem [Ambien] 2.5 mg PO HS 09/25/17 03/20/19 Aspirin EC [Ecotrin Low Dose] 81 mg PO DAILY 03/20/19 03/20/19 Cetirizine HCl 10 mg PO DAILY 03/20/19 03/20/19 Polyethylene Glycol 3350 [Miralax] 0.5 tsp PO DAILY 03/20/19 03/20/19 Allergies Allergy/AdvReac Type Severity Reaction Status Date / Time Penicillins Allergy Rash/Hives Verified 03/20/19 19:11 omeprazole AdvReac Nausea & Verified 03/20/19 19:11 Vomiting & Diarrhea Review of Systems ROS Statement: Those systems with pertinent positive or pertinent negative responses have been documented in the HPI. ROS Other: All systems not noted in ROS Statement are negative. 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, osteoporosis History of Any Multi-Drug Resistant Organisms: None Reported Past Surgical History: Adenoidectomy, Cholecystectomy, Orthopedic Surgery, Tonsillectomy Additional Past Surgical History / Comment(s): Left knee arthoscopy x2, D&C, Colonoscopy, EGD, left knee replacement July 2017 Past Anesthesia/Blood Transfusion Reactions: Motion Sickness, Postoperative Nausea & Vomiting (PONV) Additional Past Anesthesia/Blood Transfusion Reaction / Comment(s): no hx blood transfusion Past Psychological History: No Psychological Hx Reported Smoking Status: Never smoker Past Alcohol Use History: None Reported Past Drug Use History: None Reported - Past Family History Father Family Medical History: Cancer Additional Family Medical History / Comment(s): father has history of renal failure. Mother Family Medical History: AFIB Additional Family Medical History / Comment(s): mother has history of atrial fibrillation Sister(s) Additional Family Medical History / Comment(s): sister has history of thyroid problems. General Exam Limitations: no limitations General appearance: alert, in no apparent distress Head exam: Present: atraumatic, normocephalic Eye exam: Present: normal appearance ENT exam: Present: normal exam Neck exam: Present: normal inspection Respiratory exam: Present: normal lung sounds bilaterally. Absent: respiratory distress, wheezes Cardiovascular Exam: Present: regular rate, normal rhythm, normal heart sounds GI/Abdominal exam: Present: soft, tenderness (Mild tenderness to palpation in the lower quadrants). Absent: distended Rectal exam: Present: deferred Extremities exam: Present: normal inspection Back exam: Present: normal inspection Neurological exam: Present: alert, oriented X3 Psychiatric exam: Present: normal affect, normal mood Skin exam: Present: warm, dry, intact Course Vital Signs 03/20/19 03/20/19 18:30 19:55 Temperature 99.3 F 98.8 F Pulse Rate 105 H 88 Respiratory 18 18 Rate Blood Pressure 131/72 109/68 O2 Sat by Pulse 99 98 Oximetry Medical Decision Making - Medical Decision Making Patient presents with chief complaint abdominal pain. On initial evaluation, vitals are stable, patient is in no acute distress. Patient be evaluated with basic labs including a liver profile. She will be sent for computed tomography scan of the abdomen and pelvis with IV contrast. Urinalysis will be obtained. 8:26 PM Lab evaluation this patient is grossly unremarkable. Computed tomography scan of the abdomen and pelvis shows diverticulitis of the sigmoid rectal junction with the possibility of a small 5 mm abscess which could also represent diverticula. Patient started on Rocephin and Flagyl. Case discussed with Dr. Romo who would prefer a medicine admit and a surgical consult as the patient may require longer term antibiotics. Results discussed with the patient, she is agreeable with admission. 8:33 PM Case discussed with Dr. Bañuelos who accepts admission with consult to Dr. Romo and Dr. Bennett. She is requesting Levaquin and Flagyl as opposed to Rocephin. Patient was started on clear liquid diet. - Lab Data Result diagrams: 03/20/19 18:53 03/20/19 18:53 Lab Results 03/20/19 03/20/19 03/20/19 Range/Units 18:53 18:53 19:21 WBC 6.0 (3.8-10.6) k/uL RBC 3.86 (3.80-5.40) m/uL Hgb 10.6 L (11.4-16.0) gm/dL Hct 33.0 L (34.0-46.0) % MCV 85.4 (80.0-100.0) fL MCH 27.4 (25.0-35.0) pg MCHC 32.1 (31.0-37.0) g/dL RDW 15.8 H (11.5-15.5) % Plt Count 153 (150-450) k/uL Neutrophils % 76 % Lymphocytes % 17 % Monocytes % 4 % Eosinophils % 2 % Basophils % 1 % Neutrophils # 4.6 (1.3-7.7) k/uL Lymphocytes # 1.0 (1.0-4.8) k/uL Monocytes # 0.2 (0-1.0) k/uL Eosinophils # 0.1 (0-0.7) k/uL Basophils # 0.0 (0-0.2) k/uL Hypochromasia Moderate Sodium 140 (137-145) mmol/L Potassium 4.3 (3.5-5.1) mmol/L Chloride 103 (98-107) mmol/L Carbon Dioxide 25 (22-30) mmol/L Anion Gap 12 mmol/L BUN 16 (7-17) mg/dL Creatinine 0.83 (0.52-1.04) mg/dL Est GFR (CKD-EPI)AfAm 78 (>60 ml/min/1.73 sqM) Est GFR (CKD-EPI)NonAf 68 (>60 ml/min/1.73 sqM) Glucose 120 H (74-99) mg/dL Calcium 9.6 (8.4-10.2) mg/dL Total Bilirubin 0.6 (0.2-1.3) mg/dL AST 17 (14-36) U/L ALT 12 (9-52) U/L Alkaline Phosphatase 112 (38-126) U/L Total Protein 6.9 (6.3-8.2) g/dL Albumin 4.3 (3.5-5.0) g/dL Urine Color Yellow Urine Appearance Clear (Clear) Urine pH 5.0 (5.0-8.0) Ur Specific [place] 1.023 (1.001-1.035) Urine Protein Trace H (Negative) Urine Glucose (UA) Negative (Negative) Urine Ketones 1+ H (Negative) Urine Blood Negative (Negative) Urine Nitrite Negative (Negative) Urine Bilirubin Negative (Negative) Urine Urobilinogen <2.0 (<2.0) mg/dL Ur Leukocyte Esterase Small H (Negative) Urine WBC 6 H (0-5) /hpf Urine Mucus Occasional H (None) /hpf Disposition Clinical Impression: Diverticulitis Disposition: ADMITTED IP TO THIS HOSP Condition: Good Is patient prescribed a controlled substance at d/c from ED?: No Referrals: Isaak Caceres MD [Primary Care Provider] - 1-2 days Decision to Admit Reason: Admit from EC - Out of Hospital Transfer - Req. Specs Out of Hospital Transfer - Requested Specifics: Other Non-Acute
[2019-03-20 19:07] LABS: Basophils % (A) 1 %; Eosinophils # (A) 0.1 k/uL (0-0.7); Eosinophils % (A) 2 %; HGB 10.6 gm/dL (11.4-16.0); Hypochromasia Moderate; Lymphocytes % (A) 17 %; MCH 27.4 pg (25.0-35.0); MCHC 32.1 g/dL (31.0-37.0); MCV 85.4 fL (80.0-100.0); Mean Platelet Volume 7.1; Monocytes # (A) 0.2 k/uL (0-1.0); Monocytes % (A) 4 %; Neutrophils # (A) 4.6 k/uL (1.3-7.7); Neutrophils % (A) 76 %; Platelet Count 153 k/uL (150-450); RBC 3.86 m/uL (3.80-5.40); RDW 15.8 % (11.5-15.5)
[2019-03-20 19:16] LABS: Albumin 4.3 g/dL (3.5-5.0); Calcium 9.6 mg/dL (8.4-10.2); Potassium 4.3 mmol/L (3.5-5.1); Total Bilirubin 0.6 mg/dL (0.2-1.3); Total Protein 6.9 g/dL (6.3-8.2)
[2019-03-20 19:43] LABS: Appearance,Urine Clear (Clear); Bilirubin,Urine Negative (Negative); Blood,Urine Negative (Negative); Color,Urine Yellow; Glucose,Urine (UA) Negative (Negative); Ketones,Urine 1+ (Negative); Leukocyte Esterase,Urine Small (Negative); Mucus,Urine Occasional /hpf; Nitrite,Urine Negative (Negative); Protein,Urine Trace (Negative); Specific Gravity,Urine 1.023 (1.001-1.035); Urobilinogen,Urine <2.0 mg/dL (<2.0)
--- NOTE | 2019-03-20 19:59 | CT ---
EXAMINATION TYPE: CT abdomen pelvis w con DATE OF EXAM: 03/20/2019 HISTORY: Abdomen pain w/fever. Pt hx anemia, splenomegaly CT DLP: 872.8mGycm Automated Exposure Control for Dose Reduction was Utilized. CONTRAST: CT scan of the abdomen and pelvis is performed with IV Contrast, patient injected with 100 mL of Isov ue 300. COMPARISON: 08/21/2016 FINDINGS: LUNG BASES: No significant abnormality is appreciated. LIVER/GB: Curvilinear calcification is again seen at the hepatic dome. The left hepatic lobe is elong ated curving over the spleen. Gallbladder surgically absent. PANCREAS: No significant abnormality is seen. SPLEEN: There is marked splenomegaly as the spleen measures up to 22 cm in craniocaudal dimension and 14.4 cm in longitudinal dimension. 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 Splenomegaly creates impression on the surrounding bowel and mass effect on the kidney ADRENALS: No significant abnormality is seen. KIDNEYS: There are too small to accurately characterize bilateral renal lesions. No hydronephrosis. BOWEL: Numerous colonic diverticula are seen without focal pericolonic fat stranding. There is a vent ral fat filled hernia with an internal dystrophic appearing calcification. Small bowel loops begin to enter the hernia defect but do not appear entrapped at this time. There is some fat stranding surrou nding the rectosigmoid junction and a possible small abscess versus diverticulum with inspissated sto ol on image 58. The fluid component measures only 5 mm and would not be drainable.. UTERUS/ADNEXA: Exophytic probable fibroid is again seen of the right lateral aspect of the uterus, on ly minimally enlarged from 2016. Leiomyosarcoma is a less likely consideration. LYMPH NODES: No greater than 1cm abdominal or pelvic lymph nodes are appreciated. OSSEOUS STRUCTURES: No significant abnormality is seen. OTHER: Extensive atherosclerosis is seen of the abdominal aorta and its branches. IMPRESSION: 1. Continued interval enlargement of the markedly enlarged spleen measuring up to 22 cm in craniocaud al dimension. 2. Acute colitis of the rectosigmoid junction with possible very small abscess measuring only 5 mm ve rsus exophytic diverticulum with inspissated secretions. 3. Mild enlargement of the right adnexal mass that may represent a fibroid. This could be further kalyan luated with pelvic ultrasound on a nonemergent basis. 0.4. Fat filled ventral hernia has abutting loo ps of small bowel.
[2019-03-20] MEDS ORDERED: metroNIDAZOLE-NS PMX 500 MG in SALINE 1 100ML.BAG IVPB STA (20:12)
[2019-03-20] MEDS ORDERED: cefTRIAXone IN SWFI 1,000 MG/10 ML SYRINGE IVP STA (20:12)
[2019-03-20] MEDS ORDERED: LEVOFLOXACIN 500MG-D5W PMX 500 MG in DEXTROSE/WATER 1 100ML.BAG IVPB STA (20:29)
[2019-03-20] MEDS ORDERED: NALOXONE 0.4 MG/ML 1 ML VIAL IV PRN (20:30)
[2019-03-20] MEDS ORDERED: MORPHINE SULFATE 4 MG/ML SYRINGE IV PRN (20:30)
[2019-03-20] MEDS ORDERED: KETOROLAC 30 MG/ML 1 ML VIAL IVP PRN (20:30)
[2019-03-20] MEDS ORDERED: ACETAMINOPHEN TAB 325 MG TAB PO PRN (22:48)
[2019-03-20] MEDS: ZOLPIDEM 5 MG TAB PO SCH (23:06)
[2019-03-20] MEDS: MONTELUKAST 10 MG TAB PO SCH (23:07)
[2019-03-20] MEDS: SODIUM CHLORIDE 0.9% 1,000 ML IV SCH (23:08)
[2019-03-20] MEDS: FLUTICASONE 50MCG/SPRAY NASAL 16GM EA NOSTRIL SCH (23:25)
[2019-03-21] MEDS: metroNIDAZOLE-NS PMX 500 MG in SALINE 1 100ML.BAG IVPB SCH ×3 (03:09→16:59)
[2019-03-21] MEDS: LEVOTHYROXINE 50 MCG TAB PO SCH (05:38)
[2019-03-21] MEDS: LISINOPRIL 20 MG TAB PO SCH ×2 (07:49→07:51)
[2019-03-21] MEDS: FLUTICASONE 50MCG/SPRAY NASAL 16GM EA NOSTRIL SCH ×2 (07:52→20:10)
[2019-03-21 09:46] LABS: Basophils % (A) 0 %; Eosinophils # (A) 0.1 k/uL (0-0.7); Eosinophils % (A) 2 %; HCT 27.8 % (34.0-46.0); Hypochromasia Marked; Lymphocytes # (A) 0.6 k/uL (1.0-4.8); Lymphocytes % (A) 21 %; MCH 26.7 pg (25.0-35.0); MCHC 30.9 g/dL (31.0-37.0); MCV 86.3 fL (80.0-100.0); Mean Platelet Volume 7.2; Monocytes # (A) 0.2 k/uL (0-1.0); Monocytes % (A) 5 %; Neutrophils # (A) 2.1 k/uL (1.3-7.7); Neutrophils % (A) 70 %; Platelet Count 137 k/uL (150-450); RBC 3.22 m/uL (3.80-5.40); RDW 15.4 % (11.5-15.5)
[2019-03-21 09:48] LABS: HGB 8.6 gm/dL (11.4-16.0)
[2019-03-21 10:07] LABS: African American GFR (CKD) >90 (>60 ml/min/1.73 sqM); Anion Gap 7 mmol/L; Blood Urea Nitrogen 13 mg/dL (7-17); C Reactive Protein 76.4 mg/L (<10.0); Calcium 8.6 mg/dL (8.4-10.2); Carbon Dioxide 24 mmol/L (22-30); Chloride 108 mmol/L (98-107); Glucose 104 mg/dL (74-99); Potassium 4.1 mmol/L (3.5-5.1); Sodium 139 mmol/L (137-145)
--- NOTE | 2019-03-21 10:48 | P.GSCN ---
History of Present Illness Consult date: 03/21/19 History of present illness: 78-year-old female presents to the emergency department with complaints of abdominal pain. She states that her abdominal pain was in the suprapubic and left lower quadrant region. She states that the pain had started a few days prior to arrival in the emergency department. She states that she does not remember when her last colonoscopy was and that her primary care physician did recommend that she have a colonoscopy. She states that she is having flatus but has not had a bowel movement since her admission. She denies having a previous episode of diverticulitis that she can remember. She also was noted to have a ventral hernia. The patient states that she has known about this and this hernia has not caused any symptoms. CT of the abdomen and pelvis was performed in the emergency department that was suspicious of diverticulitis and a possible 5 mm abscess. Currently, since the patient has been on antibiotics, she states that her pain has mostly been relieved. 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, osteoporosis History of Any Multi-Drug Resistant Organisms: None Reported Past Surgical History: Adenoidectomy, Cholecystectomy, Orthopedic Surgery, Tonsillectomy Additional Past Surgical History / Comment(s): Left knee arthoscopy x2, D&C, Colonoscopy, EGD, left knee replacement July 2017 Past Anesthesia/Blood Transfusion Reactions: Motion Sickness, Postoperative Nausea & Vomiting (PONV) Additional Past Anesthesia/Blood Transfusion Reaction / Comm: no hx blood transfusion Past Psychological History: No Psychological Hx Reported Smoking Status: Never smoker Past Alcohol Use History: None Reported Additional Past Alcohol Use History / Comment(s): patient is a lifelong nonsmoker. She drinks 1-2 glasses of wine per week. No illicit drug use. Past Drug Use History: None Reported - Past Family History Father Family Medical History: Cancer Additional Family Medical History / Comment(s): father has history of renal failure. Mother Family Medical History: AFIB Additional Family Medical History / Comment(s): mother has history of atrial fibrillation Sister(s) Additional Family Medical History / Comment(s): sister has history of thyroid problems. Medications and Allergies Home Medications Medication Instructions Recorded Confirmed Type Atorvastatin [Lipitor] 10 mg PO HS 07/30/16 03/20/19 History Fluticasone Nasal [place] [Flonase 1 spr EA NOSTRIL BID 07/30/16 03/20/19 History Nasal [place]] Levothyroxine Sodium [Synthroid] 50 mcg PO QAM 07/30/16 03/20/19 History Montelukast [Singulair] 10 mg PO HS 07/30/16 03/20/19 History RX: Ramipril 10 mg PO QAM 07/30/16 03/20/19 History Zolpidem [Ambien] 2.5 mg PO HS 09/25/17 03/20/19 History Aspirin EC [Ecotrin Low Dose] 81 mg PO DAILY 03/20/19 03/20/19 History Polyethylene Glycol 3350 [Miralax] 0.5 tsp PO DAILY 03/20/19 03/20/19 History RX: Cetirizine HCl 10 mg PO DAILY 03/20/19 03/20/19 History Allergies Allergy/AdvReac Type Severity Reaction Status Date / Time Penicillins Allergy Rash/Hives Verified 03/20/19 19:11 omeprazole AdvReac Nausea & Verified 03/20/19 19:11 Vomiting & Diarrhea Surgical - Exam Osteopathic Statement: *. No significant issues noted on an osteopathic structural exam other than those noted in the History and Physical/Consult. Vital Signs Temp Pulse Resp BP Pulse Ox 99.3 F 105 H 18 131/72 99 03/20/19 18:30 03/20/19 18:30 03/20/19 18:30 03/20/19 18:30 03/20/19 18:30 - General well nourished, no distress - Eyes PERRL - ENT no hearing loss - Neck trachea midline - Respiratory No difficulty with respiration - Abdomen Soft, nontender, nondistended, no rebound, no guarding - Psychiatric oriented to time, oriented to person, oriented to place Results - Labs 03/21/19 07:44 03/21/19 07:44 Abnormal Lab Results - Last 24 Hours (Table) 03/20/19 03/20/19 03/20/19 Range/Units 18:53 18:53 19:21 WBC (3.8-10.6) k/uL RBC (3.80-5.40) m/uL Hgb 10.6 L (11.4-16.0) gm/dL Hct 33.0 L (34.0-46.0) % MCHC (31.0-37.0) g/dL RDW 15.8 H (11.5-15.5) % Plt Count (150-450) k/uL Lymphocytes # (1.0-4.8) k/uL Chloride (98-107) mmol/L Glucose 120 H (74-99) mg/dL C-Reactive Protein (<10.0) mg/L Urine Protein Trace H (Negative) Urine Ketones 1+ H (Negative) Ur Leukocyte Esterase Small H (Negative) Urine WBC 6 H (0-5) /hpf Urine Mucus Occasional H (None) /hpf 03/21/19 03/21/19 Range/Units 07:44 07:44 WBC 3.0 L (3.8-10.6) k/uL RBC 3.22 L (3.80-5.40) m/uL Hgb 8.6 L D (11.4-16.0) gm/dL Hct 27.8 L (34.0-46.0) % MCHC 30.9 L (31.0-37.0) g/dL RDW (11.5-15.5) % Plt Count 137 L (150-450) k/uL Lymphocytes # 0.6 L (1.0-4.8) k/uL Chloride 108 H (98-107) mmol/L Glucose 104 H (74-99) mg/dL C-Reactive Protein 76.4 H (<10.0) mg/L Urine Protein (Negative) Urine Ketones (Negative) Ur Leukocyte Esterase (Negative) Urine WBC (0-5) /hpf Urine Mucus (None) /hpf Diabetes panel 03/20/19 03/21/19 Range/Units 18:53 07:44 Sodium 140 139 (137-145) mmol/L Potassium 4.3 4.1 (3.5-5.1) mmol/L Chloride 103 108 H (98-107) mmol/L Carbon Dioxide 25 24 (22-30) mmol/L BUN 16 13 (7-17) mg/dL Creatinine 0.83 0.70 (0.52-1.04) mg/dL Glucose 120 H 104 H (74-99) mg/dL Calcium 9.6 8.6 (8.4-10.2) mg/dL AST 17 (14-36) U/L ALT 12 (9-52) U/L Alkaline Phosphatase 112 (38-126) U/L Total Protein 6.9 (6.3-8.2) g/dL Albumin 4.3 (3.5-5.0) g/dL Calcium panel 03/20/19 03/21/19 Range/Units 18:53 07:44 Calcium 9.6 8.6 (8.4-10.2) mg/dL Albumin 4.3 (3.5-5.0) g/dL Pituitary panel 03/20/19 03/21/19 Range/Units 18:53 07:44 Sodium 140 139 (137-145) mmol/L Potassium 4.3 4.1 (3.5-5.1) mmol/L Chloride 103 108 H (98-107) mmol/L Carbon Dioxide 25 24 (22-30) mmol/L BUN 16 13 (7-17) mg/dL Creatinine 0.83 0.70 (0.52-1.04) mg/dL Glucose 120 H 104 H (74-99) mg/dL Calcium 9.6 8.6 (8.4-10.2) mg/dL Adrenal panel 03/20/19 03/21/19 Range/Units 18:53 07:44 Sodium 140 139 (137-145) mmol/L Potassium 4.3 4.1 (3.5-5.1) mmol/L Chloride 103 108 H (98-107) mmol/L Carbon Dioxide 25 24 (22-30) mmol/L BUN 16 13 (7-17) mg/dL Creatinine 0.83 0.70 (0.52-1.04) mg/dL Glucose 120 H 104 H (74-99) mg/dL Calcium 9.6 8.6 (8.4-10.2) mg/dL Total Bilirubin 0.6 (0.2-1.3) mg/dL AST 17 (14-36) U/L ALT 12 (9-52) U/L Alkaline Phosphatase 112 (38-126) U/L Total Protein 6.9 (6.3-8.2) g/dL Albumin 4.3 (3.5-5.0) g/dL - Imaging CT scan - abdomen: report reviewed, image reviewed (Inflammatory changes surrounding the sigmoid colon are noted.) CT scan - pelvis: report reviewed, image reviewed Assessment and Plan (1) Diverticulitis Narrative/Plan: 78-year-old female with diverticulitis and possible abscess - Pain appears to be resolving, we will advance to a full liquid diet - Continue the antibiotics to treat diverticulitis. Due to possible abscess, infectious disease consult is pending - I did recommend that the patient get a colonoscopy in 6-8 weeks after resolution of this diverticulitis episode. The patient was agreeable with this plan. Thank you for this consultation, I look forward in providing in this patient's care. Current Visit: Yes Status: Acute Code(s): K57.92 - DVTRCLI OF INTEST, PART UNSP, W/O PERF OR ABSCESS W/O BLEED SNOMED Code(s): 036956265
[2019-03-21] MEDS: SODIUM CHLORIDE 0.9% 1,000 ML IV SCH (11:17)
[2019-03-21 11:19] LABS: Erythrocyte Sedimentation Rate 101 mm/hr (0-20)
--- NOTE | 2019-03-21 16:23 | P.CONS ---
History of Present Illness - Reason for Consult Consult date: 03/21/19 - Chief Complaint Abdominal pain - History of Present Illness Pleasant 78 -year-old female who presents to hospital with progressive abdominal pain that is mostly lowing the abdomen at increased to the point in time where she was concerned and presented to the emergency center. The patient relates that she may have been a bit constipated but not severely so. She thought she was having a bit of a fever she had minimal chills or rigors. She has a known history of low-grade B-cell lymphoma and follows with Dr. Eid in is on no specific chemotherapy at this time. She has not had prior difficulties with abdominal pain or with her colon in the past. Computed tomography scan as noted was performed revealing evidence of the diverticulitis with possible small abscess. Given is a consult was requested. Review of Systems HEENT:Denies headache or acute visual change. Denies sinus or mouth discomforts. Denies neck stiffness or pain. Denies significant oral cavity pain. Denies difficulty on swallowing. Lungs: Denies significant shortness of breath, cough, sputum production, or hemoptysis. Cardiovascular: Denies significant shortness of breath, chest pain, chest wall pain, orthopnea, dyspnea on exertion, syncope Gastrointestinal: Appetite is slightly poor but no nausea or emesis. The lower abdominal pain as noted no hematemesis melena hematochezia. Musculoskeletal: denies significant myalgias or arthralgias. No new joint swelling. Denies new back pain. Skin: Denies new rash or lesions. No new ulcers or wounds are related.. Neuro: Denies headache or visual change. Denies any new onset weakness or difficulty with ambulation. Denies falls or seizures. Psychiatric:Denies anxiety or depression. Endocrine: Denies significant fatigue, denies significant weight loss or weight gain. Past Medical History Past Medical History: Asthma, Hyperlipidemia, Hypertension, Osteoarthritis (OA), Thyroid Disorder Additional Past Medical History / Comment(s): chronic anemia, antiphospholipid antibody syndrome, enlarged spleen,bronchial asthma with upper resp infectio ns.,constipation,low grade B cell lymphoma Aug 2016-no chemo or radiation, osteoporosis History of Any Multi-Drug Resistant Organisms: None Reported Past Surgical History: Adenoidectomy, Cholecystectomy, Orthopedic Surgery, Tonsillectomy Additional Past Surgical History / Comment(s): Left knee arthoscopy x2, D&C, Colonoscopy, EGD, left knee replacement July 2017 Past Anesthesia/Blood Transfusion Reactions: Motion Sickness, Postoperative Nausea & Vomiting (PONV) Additional Past Anesthesia/Blood Transfusion Reaction / Comm: no hx blood transfusion Past Psychological History: No Psychological Hx Reported Additional Psychological History / Comment(s): . [place] in [place]. 2 adult children 1 in [place] 1 in [place]. No animal exposures. No international travel. Lifelong nonsmoker. No significant alcohol or recreational drug use Smoking Status: Never smoker Past Alcohol Use History: None Reported Additional Past Alcohol Use History / Comment(s): patient is a lifelong nonsmoker. She drinks 1-2 glasses of wine per week. No illicit drug use. Past Drug Use History: None Reported - Past Family History Father Family Medical History: Cancer Additional Family Medical History / Comment(s): father has history of renal failure. Mother Family Medical History: AFIB Additional Family Medical History / Comment(s): mother has history of atrial fibrillation Sister(s) Additional Family Medical History / Comment(s): sister has history of thyroid problems. Medications and Allergies Home Medications and Allergies Comment(s): Current Medications Acetaminophen (Tylenol Tab) 650 mg PO Q6HR PRN PRN Reason: Fever and/ or Pain Last Admin: 03/20/19 23:07 Dose: 650 mg Documented by: Fluticasone Propionate (Flonase Nasal [place]) 1 spray EA NOSTRIL BID [facility] Last Admin: 03/21/19 07:52 Dose: 1 spray Documented by: Levofloxacin 500 mg/ IV (Solution) 100 mls @ 100 mls/hr IVPB Q24H [facility] Metronidazole 500 mg/ IV (Solution) 100 mls @ 100 mls/hr IVPB Q6H [facility] Last Admin: 03/21/19 10:11 Dose: 100 mls/hr Documented by: Sodium Chloride (Saline 0.9%) 1,000 mls @ 75 mls/hr IV .[id number] [facility] Last Admin: 03/21/19 11:17 Dose: 75 mls/hr Documented by: Ketorolac Tromethamine (Toradol) 15 mg IVP Q6HR PRN PRN Reason: Moderate Pain Stop: 03/25/19 20:31 Levothyroxine Sodium (Synthroid) 50 mcg PO DAILY@0630 [facility] Last Admin: 03/21/19 05:38 Dose: 50 mcg Documented by: Lisinopril (Zestril) 40 mg PO [facility] Last Admin: 03/21/19 07:51 Dose: Not Given Documented by: Montelukast Sodium (Singulair) 10 mg PO [facility] Last Admin: 03/20/19 23:07 Dose: 10 mg Documented by: Naloxone HCl (Narcan) 0.2 mg IV Q2M PRN PRN Reason: Opioid Reversal Zolpidem Tartrate (Ambien) 2.5 mg PO [facility] Last Admin: 03/20/19 23:06 Dose: 2.5 mg Documented by: Home Medications Medication Instructions Recorded Confirmed Type Atorvastatin [Lipitor] 10 mg PO 07/30/16 03/20/19 History Fluticasone Nasal [place] [Flonase 1 spr EA NOSTRIL BID 07/30/16 03/20/19 History Nasal [place]] Levothyroxine Sodium [Synthroid] 50 mcg PO [facility] 07/30/16 03/20/19 History Montelukast [Singulair] 10 mg PO 07/30/16 03/20/19 History Ramipril 10 mg PO [facility] 07/30/16 03/20/19 History Zolpidem [Ambien] 2.5 mg PO 09/25/17 03/20/19 History Aspirin EC [Ecotrin Low Dose] 81 mg PO DAILY 03/20/19 03/20/19 History Cetirizine HCl 10 mg PO DAILY 03/20/19 03/20/19 History Polyethylene Glycol 3350 [Miralax] 0.5 tsp PO DAILY 03/20/19 03/20/19 History Allergies Allergy/AdvReac Type Severity Reaction Status Date / Time Penicillins Allergy Rash/Hives Verified 03/20/19 19:11 omeprazole AdvReac Nausea & Verified 03/20/19 19:11 Vomiting & Diarrhea Physical Exam Vitals: Vital Signs Temp Pulse Pulse Resp BP BP BP 03/21/19 12:50 98.2 F 84 18 126/73 03/21/19 07:51 82 104/73 03/21/19 04:50 98.2 F 79 20 95/58 03/20/19 23:00 98 F 85 20 98/64 03/20/19 22:22 98.3 F 89 18 128/70 03/20/19 19:55 98.8 F 88 18 109/68 03/20/19 18:30 99.3 F 105 H 18 131/72 Pulse Ox 03/21/19 12:50 98 03/21/19 07:51 03/21/19 04:50 94 L 03/20/19 23:00 95 03/20/19 22:22 98 03/20/19 19:55 98 03/20/19 18:30 99 Intake and Output 03/21/19 03/21/19 03/21/19 06:59 14:59 22:59 Intake Total 100 Balance 100 Intake: Oral 100 Other: # Voids 2 1 78-year-old woman who appears somewhat younger than her stated age HEENT: Anicteric conjunctiva are pink and moist nasal mucosa grossly intact without significant lesions, there is no thrush. Neck: The neck is supple without significant lymphadenopathy or thyromegaly. Lungs: Good bilateral air entry without significant crackles or wheezing. There is no significant bronchial sounds. There is no egophony or dullness. Heart: Regular rate and rhythm with an audible S1-S2, no S3 no S4. There is no significant murmur click or rub, PMI was nondisplaced. Abdomen: Positive bowel sounds soft there is some tenderness to the lower quadrants without palpable masses no hepatomegaly, is fullness in the left upper quadrant which is not tender. There was no guarding or rebound. Extremities: The upper extremities have excellent pulses they are symmetric, no significant petechiae or telangiectasia. No splinter hemorrhages were noted. The lower extremities are free from significant edema. The peripheral pulses were 2+ and symmetric. Neuro: Awake alert oriented to person place and time. There are no acute new gross focal sensory motor deficits. Results CBC & Chem 7: 03/21/19 07:44 03/21/19 07:44 Labs: Abnormal Lab Results - Last 24 Hours (Table) 03/20/19 03/20/19 03/20/19 Range/Units 18:53 18:53 19:21 WBC (3.8-10.6) k/uL RBC (3.80-5.40) m/uL Hgb 10.6 L (11.4-16.0) gm/dL Hct 33.0 L (34.0-46.0) % MCHC (31.0-37.0) g/dL RDW 15.8 H (11.5-15.5) % Plt Count (150-450) k/uL Lymphocytes # (1.0-4.8) k/uL ESR (0-20) mm/hr Chloride (98-107) mmol/L Glucose 120 H (74-99) mg/dL C-Reactive Protein (<10.0) mg/L Urine Protein Trace H (Negative) Urine Ketones 1+ H (Negative) Ur Leukocyte Esterase Small H (Negative) Urine WBC 6 H (0-5) /hpf Urine Mucus Occasional H (None) /hpf 03/21/19 03/21/19 Range/Units 07:44 07:44 WBC 3.0 L (3.8-10.6) k/uL RBC 3.22 L (3.80-5.40) m/uL Hgb 8.6 L D (11.4-16.0) gm/dL Hct 27.8 L (34.0-46.0) % MCHC 30.9 L (31.0-37.0) g/dL RDW (11.5-15.5) % Plt Count 137 L (150-450) k/uL Lymphocytes # 0.6 L (1.0-4.8) k/uL ESR 101 H (0-20) mm/hr Chloride 108 H (98-107) mmol/L Glucose 104 H (74-99) mg/dL C-Reactive Protein 76.4 H (<10.0) mg/L Urine Protein (Negative) Urine Ketones (Negative) Ur Leukocyte Esterase (Negative) Urine WBC (0-5) /hpf Urine Mucus (None) /hpf Laboratory Results WBC 3.0 k/uL (3.8-10.6) L 03/21/19 07:44 RBC 3.22 m/uL (3.80-5.40) L 03/21/19 07:44 Hgb 8.6 gm/dL (11.4-16.0) L D 03/21/19 07:44 Hct 27.8 % (34.0-46.0) L 03/21/19 07:44 MCV 86.3 fL (80.0-100.0) 03/21/19 07:44 MCH 26.7 pg (25.0-35.0) 03/21/19 07:44 MCHC 30.9 g/dL (31.0-37.0) L 03/21/19 07:44 RDW 15.4 % (11.5-15.5) 03/21/19 07:44 Plt Count 137 k/uL (150-450) L 03/21/19 07:44 Neutrophils % 70 % 03/21/19 07:44 Lymphocytes % 21 % 03/21/19 07:44 Monocytes % 5 % 03/21/19 07:44 Eosinophils % 2 % 03/21/19 07:44 Basophils % 0 % 03/21/19 07:44 Neutrophils # 2.1 k/uL (1.3-7.7) 03/21/19 07:44 Lymphocytes # 0.6 k/uL (1.0-4.8) L 03/21/19 07:44 Monocytes # 0.2 k/uL (0-1.0) 03/21/19 07:44 Eosinophils # 0.1 k/uL (0-0.7) 03/21/19 07:44 Basophils # 0.0 k/uL (0-0.2) 03/21/19 07:44 Hypochromasia Marked 03/21/19 07:44 ESR 101 mm/hr (0-20) H 03/21/19 07:44 Sodium 139 mmol/L (137-145) 03/21/19 07:44 Potassium 4.1 mmol/L (3.5-5.1) 03/21/19 07:44 Chloride 108 mmol/L (98-107) H 03/21/19 07:44 Carbon Dioxide 24 mmol/L (22-30) 03/21/19 07:44 Anion Gap 7 mmol/L 03/21/19 07:44 BUN 13 mg/dL (7-17) 03/21/19 07:44 Creatinine 0.70 mg/dL (0.52-1.04) 03/21/19 07:44 Est GFR (CKD-EPI)AfAm >90 (>60 ml/min/1.73 sqM) 03/21/19 07:44 Est GFR (CKD-EPI)NonAf 83 (>60 ml/min/1.73 sqM) 03/21/19 07:44 Glucose 104 mg/dL (74-99) H 03/21/19 07:44 Calcium 8.6 mg/dL (8.4-10.2) 03/21/19 07:44 Total Bilirubin 0.6 mg/dL (0.2-1.3) 03/20/19 18:53 AST 17 U/L (14-36) 03/20/19 18:53 ALT 12 U/L (9-52) 03/20/19 18:53 Alkaline Phosphatase 112 U/L (38-126) 03/20/19 18:53 C-Reactive Protein 76.4 mg/L (<10.0) H 03/21/19 07:44 Total Protein 6.9 g/dL (6.3-8.2) 03/20/19 18:53 Albumin 4.3 g/dL (3.5-5.0) 03/20/19 18:53 Urine Color Yellow 03/20/19 19:21 Urine Appearance Clear (Clear) 03/20/19 19:21 Urine pH 5.0 (5.0-8.0) 03/20/19 19:21 Ur Specific [place] 1.023 (1.001-1.035) 03/20/19 19:21 Urine Protein Trace (Negative) H 03/20/19 19:21 Urine Glucose (UA) Negative (Negative) 03/20/19 19:21 Urine Ketones 1+ (Negative) H 03/20/19 19:21 Urine Blood Negative (Negative) 03/20/19 19:21 Urine Nitrite Negative (Negative) 03/20/19 19:21 Urine Bilirubin Negative (Negative) 03/20/19 19:21 Urine Urobilinogen <2.0 mg/dL (<2.0) 03/20/19 19:21 Ur Leukocyte Esterase Small (Negative) H 03/20/19 19:21 Urine WBC 6 /hpf (0-5) H 03/20/19 19:21 Urine Mucus Occasional /hpf (None) H 03/20/19 19:21 Assessment and Plan (1) Low grade B-cell lymphoma Current Visit: Yes Status: Acute Code(s): C85.10 - UNSPECIFIED B-CELL LYMPHOMA, UNSPECIFIED SITE SNOMED Code(s): 050283346 (2) Splenomegaly Current Visit: No Status: Acute Code(s): R16.1 - SPLENOMEGALY, NOT ELSEWHERE CLASSIFIED SNOMED Code(s): 70341435 (3) Diverticulitis of intestine with abscess without bleeding Narrative/Plan: 78-year-old woman who has low-grade B-cell lymphoma who has known splenomegaly presents to hospital with progressive abdominal pain which became associated with a fever. Because of her underlying abnormality she did present to the emergency center and was admitted after computed tomography scan showed evidence of significant diverticulitis in the potential for a small abscess. The patient is feeling somewhat better today. Hepatitis improved. She is not having significant fever or chill but did have a bit of a fever at admission. She's been seen by the surgeon and there is plans for an outpatient colonoscopy in approximately 6 weeks to further evaluate. Not thought that she is in need of any specific surgical intervention at this time. She is having some difficulty with her hematological parameters in that her white cells and platelets fell likely due to metronidazole. Discussed ways discontinued we'll switch her to ertapenem. If she does well over the next 24 hours within consider transitioning her to moxifloxacin 400 mg a day for 7 days until she follows up with the surgeon. Current Visit: Yes Status: Acute Code(s): K57.80 - DVTRCLI OF INTEST, PART UNSP, W PERF AND ABSCESS W/O BLEED SNOMED Code(s): 084778417
[2019-03-21] MEDS: ERTAPENEM 1 GM in SODIUM CHLORIDE 0.9% 50 ML IVPB SCH (17:46)
--- NOTE | 2019-03-21 17:50 | P.HPIM ---
History of Present Illness H&P Date: 03/21/19 Chief Complaint: Left lower quadrant suprapubic abdominal pain This 78-year-old pleasant lady patient of Dr. Caceres she has underlying history of hypertension, asthma, hypothyroidism admitted to the emergency room secondary to 1day abdominal pain, patient has had chronic constipation maintained on MiraLAX, pain has progressed requiring h her ER evaluation. Patient has low- grade fever, no vomiting, negligible nausea, and this will be her first episode of diverticulitis patient denies any melena hematochezia, In the emergency room CAT scan of the abdomen and pelvis shows diverticulitis of the sigmoid rectal junction with the possibility of a small 5 mm abscess that co uld represent also diverticula. Patient was started on Levaquin and Flagyl, and consult to Dr. La Bennett for possible long-term IV antibiotics, patient was seen by general surgery, full liquid diet has been advanced and is tolerated, I'm anticipating that the patient might be able to tolerate a soft low residue diet starting dinner today Review of Systems Constitutional: Reports as per HPI, Denies anorexia, Denies chills, Denies chronic headaches, Denies chronic pain, Denies daytime sleepiness, Denies fatigue, Denies fever, Denies lethargy, Denies malaise, Denies night sweats, Denies poor appetite, Denies sweats, Denies weakness, Denies weight gain, Denies weight loss Ears, nose, mouth and throat: Reports as per HPI, Denies ant. neck pain, Denies bleeding gums, Denies dental pain, Denies dysphagia, Denies epistaxis, Denies headache, Denies hoarseness, Denies mouth pain, Denies nasal congestion, Denies nasal discharge, Denies neck fullness/pressure, Denies neck lump, Denies nose pain, Denies odynophagia, Denies post-nasal drip, Denies sinus pain, Denies sinus pressure, Denies swelling in mouth, Denies swelling in throat, Denies sore throat, Denies vertigo, Denies voice changes Cardiovascular: Reports as per HPI, Denies chest pain, Denies claudication, Denies decreased exercise tolerance, Denies dyspnea on exertion, Denies edema, Denies high blood pressure, Denies irregular heart beat, Denies leg edema, Denies lightheadedness, Denies orthopnea, Denies palpitations, Denies paroxysmal nocturnal dyspnea, Denies phlebitis, Denies rapid heart beat, Denies shortness of breath, Denies syncope Respiratory: Reports as per HPI, Denies congestion, Denies cough, Denies cough with sputum, Denies dyspnea, Denies excessive sputum, Denies hemoptysis, Denies home oxygen, Denies pain, Denies pain on inspiration, Denies pleurisy, Denies respiratory infections, Denies sleep apnea, Denies snoring, Denies wheezing Gastrointestinal: Reports as per HPI, Reports abdominal pain, Reports change in bowel habits, Reports constipation Genitourinary: Reports as per HPI Menstruation: Reports as per HPI, Reports postmenopausal Musculoskeletal: Reports as per HPI, Denies arm numbness/tingling, Denies atrophy, Denies fractures, Denies frequent falls, Denies gait dysfunction, Denies hot joints, Denies leg numbness/tingling, Denies limitation of motion, Denies loss of height, Denies low back pain, Denies morning stiffness, Denies muscle cramps, Denies muscle weakness, Denies myalgias, Denies neck pain, Denies neck stiffness, Denies prior amputations, Denies redness of joints, Denies shooting arm pain, Denies shooting leg pain Integumentary: Reports as per HPI Neurological: Reports as per HPI, Denies aphasia, Denies ataxia, Denies balance difficulties, Denies burning pain, Denies change in mentation, Denies change in smell/taste, Denies change in speech, Denies confusion, Denies convulsions, Denies double vision, Denies gait dysfunction, Denies head injury, Denies headaches, Denies hearing difficulties, Denies lack of coordination, Denies loss of vision, Denies memory loss, Denies migraines, Denies motor disturbance, Denies numbness, Denies paralysis, Denies paresthesias, Denies seizures, Denies sensory deficit, Denies spasticity, Denies syncope, Denies tic, Denies tingling, Denies transient paralysis, Denies tremors, Denies vertigo, Denies weakness, Denies visual changes Psychiatric: Reports as per HPI, Denies anhedonia, Denies anxiety, Denies anxiety attacks, Denies change in appetite, Denies change in libido, Denies change in sleep habits, Denies confusion, Denies depression, Denies difficulty concentrating, Denies disorientation, Denies hallucinations, Denies hopeless ness, Denies hypersomnia, Denies insomnia, Denies irritability, Denies memory loss, Denies mood swings, Denies paranoia, Denies sadness/tearfulness, Denies sleep disturbances, Denies suicidal ideation 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 [place] in [place]. 2 adult children 1 in [place] 1 in [place]. No animal exposures. No international travel. Lifelong nonsmoker. No significant alcohol or recreational drug use Smoking Status: Never smoker Past Alcohol Use History: None Reported Additional Past Alcohol Use History / Comment(s): patient is a lifelong nonsmoke r. She drinks 1-2 glasses of wine per week. No illicit drug use. Past Drug Use History: None Reported - Past Family History Father Family Medical History: Cancer Additional Family Medical History / Comment(s): father has history of renal failure. Mother Family Medical History: AFIB Additional Family Medical History / Comment(s): mother has history of atrial fibrillation Sister(s) Additional Family Medical History / Comment(s): sister has history of thyroid problems. Medications and Allergies Home Medications Medication Instructions Recorded Confirmed Type Atorvastatin [Lipitor] 10 mg PO HS 07/30/16 03/20/19 History Fluticasone Nasal [place] [Flonase 1 spr EA NOSTRIL BID 07/30/16 03/20/19 History Nasal [place]] Levothyroxine Sodium [Synthroid] 50 mcg PO QAM 07/30/16 03/20/19 History Montelukast [Singulair] 10 mg PO HS 07/30/16 03/20/19 History Ramipril 10 mg PO QAM 07/30/16 03/20/19 History Zolpidem [Ambien] 2.5 mg PO HS 09/25/17 03/20/19 History Aspirin EC [Ecotrin Low Dose] 81 mg PO DAILY 03/20/19 03/20/19 History Cetirizine HCl 10 mg PO DAILY 03/20/19 03/20/19 History Polyethylene Glycol 3350 [Miralax] 0.5 tsp PO DAILY 03/20/19 03/20/19 History Allergies Allergy/AdvReac Type Severity Reaction Status Date / Time Penicillins Allergy Rash/Hives Verified 03/20/19 19:11 omeprazole AdvReac Nausea & Verified 03/20/19 19:11 Vomiting & Diarrhea Physical Exam Vitals: Vital Signs Temp Pulse Pulse Resp BP BP BP 03/21/19 12:50 98.2 F 84 18 126/73 03/21/19 07:51 82 104/73 03/21/19 04:50 98.2 F 79 20 95/58 03/20/19 23:00 98 F 85 20 98/64 03/20/19 22:22 98.3 F 89 18 128/70 03/20/19 19:55 98.8 F 88 18 109/68 03/20/19 18:30 99.3 F 105 H 18 131/72 Pulse Ox 03/21/19 12:50 98 03/21/19 07:51 03/21/19 04:50 94 L 03/20/19 23:00 95 03/20/19 22:22 98 03/20/19 19:55 98 03/20/19 18:30 99 Intake and Output 03/21/19 03/21/19 03/21/19 06:59 14:59 22:59 Intake Total 100 Balance 100 Intake: Oral 100 Other: # Voids 2 1 - Constitutional General appearance: cooperative, no acute distress - EENT Eyes: anicteric sclerae, EOMI, PERRLA, dentition normal ENT: NA/AT, normal oropharynx - Neck Neck: normal ROM - Respiratory Respiratory: bilateral: CTA, negative: diminished, dullness, rales - Cardiovascular Rhythm: regular Heart sounds: normal: S1, S2 Abnormal Heart Sounds: no systolic murmur, no diastolic murmur, no rub, no S3 Gallop, no S4 Gallop, no click, no other - Gastrointestinal General gastrointestinal: normal bowel sounds, soft, tenderness (Left lower quadrant area present on admission resolved on current examination) - Integumentary Integumentary: decreased turgor, normal - Neurologic Neurologic: CNII-XII intact - Musculoskeletal Musculoskeletal: gait normal, strength equal bilaterally - Psychiatric Psychiatric: A&O x's 3, appropriate affect, intact judgment & insight Results CBC & Chem 7: 03/21/19 07:44 03/21/19 07:44 Labs: Abnormal Lab Results - Last 24 Hours (Table) 03/20/19 03/20/19 03/20/19 Range/Units 18:53 18:53 19:21 WBC (3.8-10.6) k/uL RBC (3.80-5.40) m/uL Hgb 10.6 L (11.4-16.0) gm/dL Hct 33.0 L (34.0-46.0) % MCHC (31.0-37.0) g/dL RDW 15.8 H (11.5-15.5) % Plt Count (150-450) k/uL Lymphocytes # (1.0-4.8) k/uL ESR (0-20) mm/hr Chloride (98-107) mmol/L Glucose 120 H (74-99) mg/dL C-Reactive Protein (<10.0) mg/L Urine Protein Trace H (Negative) Urine Ketones 1+ H (Negative) Ur Leukocyte Esterase Small H (Negative) Urine WBC 6 H (0-5) /hpf Urine Mucus Occasional H (None) /hpf 03/21/19 03/21/19 Range/Units 07:44 07:44 WBC 3.0 L (3.8-10.6) k/uL RBC 3.22 L (3.80-5.40) m/uL Hgb 8.6 L D (11.4-16.0) gm/dL Hct 27.8 L (34.0-46.0) % MCHC 30.9 L (31.0-37.0) g/dL RDW (11.5-15.5) % Plt Count 137 L (150-450) k/uL Lymphocytes # 0.6 L (1.0-4.8) k/uL ESR 101 H (0-20) mm/hr Chloride 108 H (98-107) mmol/L Glucose 104 H (74-99) mg/dL C-Reactive Protein 76.4 H (<10.0) mg/L Urine Protein (Negative) Urine Ketones (Negative) Ur Leukocyte Esterase (Negative) Urine WBC (0-5) /hpf Urine Mucus (None) /hpf Laboratory Results WBC 3.0 k/uL (3.8-10.6) L 03/21/19 07:44 RBC 3.22 m/uL (3.80-5.40) L 03/21/19 07:44 Hgb 8.6 gm/dL (11.4-16.0) L D 03/21/19 07:44 Hct 27.8 % (34.0-46.0) L 03/21/19 07:44 MCV 86.3 fL (80.0-100.0) 03/21/19 07:44 MCH 26.7 pg (25.0-35.0) 03/21/19 07:44 MCHC 30.9 g/dL (31.0-37.0) L 03/21/19 07:44 RDW 15.4 % (11.5-15.5) 03/21/19 07:44 Plt Count 137 k/uL (150-450) L 03/21/19 07:44 Neutrophils % 70 % 03/21/19 07:44 Lymphocytes % 21 % 03/21/19 07:44 Monocytes % 5 % 03/21/19 07:44 Eosinophils % 2 % 03/21/19 07:44 Basophils % 0 % 03/21/19 07:44 Neutrophils # 2.1 k/uL (1.3-7.7) 03/21/19 07:44 Lymphocytes # 0.6 k/uL (1.0-4.8) L 03/21/19 07:44 Monocytes # 0.2 k/uL (0-1.0) 03/21/19 07:44 Eosinophils # 0.1 k/uL (0-0.7) 03/21/19 07:44 Basophils # 0.0 k/uL (0-0.2) 03/21/19 07:44 Hypochromasia Marked 03/21/19 07:44 ESR 101 mm/hr (0-20) H 03/21/19 07:44 Sodium 139 mmol/L (137-145) 03/21/19 07:44 Potassium 4.1 mmol/L (3.5-5.1) 03/21/19 07:44 Chloride 108 mmol/L (98-107) H 03/21/19 07:44 Carbon Dioxide 24 mmol/L (22-30) 03/21/19 07:44 Anion Gap 7 mmol/L 03/21/19 07:44 BUN 13 mg/dL (7-17) 03/21/19 07:44 Creatinine 0.70 mg/dL (0.52-1.04) 03/21/19 07:44 Est GFR (CKD-EPI)AfAm >90 (>60 ml/min/1.73 sqM) 03/21/19 07:44 Est GFR (CKD-EPI)NonAf 83 (>60 ml/min/1.73 sqM) 03/21/19 07:44 Glucose 104 mg/dL (74-99) H 03/21/19 07:44 Calcium 8.6 mg/dL (8.4-10.2) 03/21/19 07:44 Total Bilirubin 0.6 mg/dL (0.2-1.3) 03/20/19 18:53 AST 17 U/L (14-36) 03/20/19 18:53 ALT 12 U/L (9-52) 03/20/19 18:53 Alkaline Phosphatase 112 U/L (38-126) 03/20/19 18:53 C-Reactive Protein 76.4 mg/L (<10.0) H 03/21/19 07:44 Total Protein 6.9 g/dL (6.3-8.2) 03/20/19 18:53 Albumin 4.3 g/dL (3.5-5.0) 03/20/19 18:53 Urine Color Yellow 03/20/19 19:21 Urine Appearance Clear (Clear) 03/20/19 19:21 Urine pH 5.0 (5.0-8.0) 03/20/19 19:21 Ur Specific [place] 1.023 (1.001-1.035) 03/20/19 19:21 Urine Protein Trace (Negative) H 03/20/19 19:21 Urine Glucose (UA) Negative (Negative) 03/20/19 19:21 Urine Ketones 1+ (Negative) H 03/20/19 19:21 Urine Blood Negative (Negative) 03/20/19 19:21 Urine Nitrite Negative (Negative) 03/20/19 19:21 Urine Bilirubin Negative (Negative) 03/20/19 19:21 Urine Urobilinogen <2.0 mg/dL (<2.0) 03/20/19 19:21 Ur Leukocyte Esterase Small (Negative) H 03/20/19 19:21 Urine WBC 6 /hpf (0-5) H 03/20/19 19:21 Urine Mucus Occasional /hpf (None) H 03/20/19 19:21 Thrombosis Risk Factor Assmnt - DVT/VTE Prophylaxis DVT/VTE Prophylaxis: Pharmacologic Prophylaxis ordered - Choose All That Apply Any of the Below Risk Factors Present?: Yes Each Factor Represents 1 point: Obesity (BMI >25) Other Risk Factors: Yes Each Risk Factor Represents 3 Points: Age 75 years or older Thrombosis Risk Factor Assessment Total Risk Factor Score: 4 Thrombosis Risk Factor Assessment Level: Moderate Risk Assessment and Plan Plan: 1. Acute diverticulitis with small diverticular abscess noted on CAT scan, without any evidence of perforation, patient is on Levaquin and Flagyl for which Dr. Bennett infectious disease has requested her M and is to complete moxifloxacin upon discharge. She continued to improve. Dr. Demetrius joiner surgery is in consult, no surgical intervention at this time, outpatient colonoscopy with Dr. Hoffman in 6-8 weeks 2. low grade b cell lymphoma as of 08/2016 not on chemo or radiation 3 chronic anemia hemoglobin of 8.6, iron studies to be done might need iron infusion in view of oral iron will transfuse packed red blood cells if hemoglobi n is under 7 4 History of antiphospholipid antibody syndrome, splenomegaly, 5 History of bronchial asthma without any current exacerbation on maintenance Singulair 6 Hypothyroidism on Levophed seen 50 g daily 7 Hyperlipidemia on Lipitor 10 at bedtime 8 Hypertension on maintenance 2.5 mg ramipril daily GI prophylaxis DVT prophylaxis
[2019-03-21] MEDS: MONTELUKAST 10 MG TAB PO SCH (20:10)
[2019-03-21] MEDS: ZOLPIDEM 5 MG TAB PO SCH (20:10)
[2019-03-21] MEDS ORDERED: LEVOFLOXACIN 500MG-D5W PMX 500 MG in DEXTROSE/WATER 1 100ML.BAG IVPB SCH (21:00)
[2019-03-21 23:33] VITALS: RESP 20
[2019-03-22] MEDS: SODIUM CHLORIDE 0.9% 1,000 ML IV SCH (04:29)
[2019-03-22 05:19] VITALS: BP 111/70; PULSE 69; TEMP 97.9
[2019-03-22] MEDS: LEVOTHYROXINE 50 MCG TAB PO SCH (05:59)
[2019-03-22] MEDS: LISINOPRIL 20 MG TAB PO SCH (08:20)
[2019-03-22] MEDS: ERTAPENEM 1 GM in SODIUM CHLORIDE 0.9% 50 ML IVPB SCH (08:21)
[2019-03-22] MEDS: FLUTICASONE 50MCG/SPRAY NASAL 16GM EA NOSTRIL SCH (08:21)
--- NOTE | 2019-03-22 09:14 | P.PN ---
Subjective Progress Note Date: 03/22/19 Patient seen and examined at bedside. No acute events overnight. Abdominal pain improving. Tolerating low fiber diet. Objective - Vital Signs Vital signs: Vital Signs Temp 97.9 F 03/22/19 04:45 Pulse 69 03/22/19 04:45 Resp 20 03/22/19 04:45 BP 111/70 03/22/19 04:45 Pulse Ox 96 03/22/19 04:45 Intake & Output 03/21/19 03/22/19 03/22/19 18:59 06:59 18:59 Intake Total 300 Balance 300 Intake: Oral 300 Other: # Voids 2 1 - Constitutional General appearance: Present: cooperative, no acute distress - Respiratory Details: No difficulty with respiration - Gastrointestinal Gastrointestinal Comment(s): Soft, nontender, nondistended, no rebound, no guarding - Psychiatric Psychiatric: Present: A&O x's 3 - Labs CBC & Chem 7: 03/21/19 07:44 03/21/19 07:44 Labs: Abnormal Lab Results - Last 24 Hours (Table) 03/21/19 03/21/19 Range/Units 07:44 07:44 WBC 3.0 L (3.8-10.6) k/uL RBC 3.22 L (3.80-5.40) m/uL Hgb 8.6 L D (11.4-16.0) gm/dL Hct 27.8 L (34.0-46.0) % MCHC 30.9 L (31.0-37.0) g/dL Plt Count 137 L (150-450) k/uL Lymphocytes # 0.6 L (1.0-4.8) k/uL ESR 101 H (0-20) mm/hr Chloride 108 H (98-107) mmol/L Glucose 104 H (74-99) mg/dL C-Reactive Protein 76.4 H (<10.0) mg/L Microbiology - Last 24 Hours (Table) 03/20/19 18:53 Blood Culture - Preliminary Blood No Growth after 24 hours Assessment and Plan (1) Diverticulitis Narrative/Plan: 78-year-old female with diverticulitis and possible abscess - Pain appears to be resolving, Tolerating soft diet - Continue the antibiotics to treat diverticulitis, continue to follow ID recommendations on abx - I did recommend that the patient get a colonoscopy in 6-8 weeks after resolution of this diverticulitis episode. The patient was agreeable with this plan. - F/U as an outpatient Current Visit: Yes Status: Acute Code(s): K57.92 - DVTRCLI OF INTEST, PART UNSP, W/O PERF OR ABSCESS W/O BLEED SNOMED Code(s): 322729874
[2019-03-22 12:04] LABS: Basophils % (A) 0 %; Eosinophils # (A) 0.1 k/uL (0-0.7); Eosinophils % (A) 2 %; HCT 28.2 % (34.0-46.0); HGB 8.6 gm/dL (11.4-16.0); Hypochromasia Marked; Lymphocytes # (A) 0.9 k/uL (1.0-4.8); Lymphocytes % (A) 33 %; MCH 26.6 pg (25.0-35.0); MCHC 30.5 g/dL (31.0-37.0); MCV 87.2 fL (80.0-100.0); Mean Platelet Volume 7.2; Monocytes # (A) 0.1 k/uL (0-1.0); Monocytes % (A) 4 %; Neutrophils # (A) 1.7 k/uL (1.3-7.7); Neutrophils % (A) 58 %; Platelet Count 137 k/uL (150-450); RBC 3.23 m/uL (3.80-5.40); RDW 15.5 % (11.5-15.5); WBC 2.9 k/uL (3.8-10.6)
[2019-03-22 12:06] LABS: ALT 13 U/L (9-52); AST 14 U/L (14-36); African American GFR (CKD) >90 (>60 ml/min/1.73 sqM); Albumin 3.3 g/dL (3.5-5.0); Alkaline Phosphatase 79 U/L (38-126); Anion Gap 8 mmol/L; Blood Urea Nitrogen 10 mg/dL (7-17); Calcium 8.9 mg/dL (8.4-10.2); Carbon Dioxide 26 mmol/L (22-30); Chloride 108 mmol/L (98-107); Glucose 93 mg/dL (74-99); Potassium 3.9 mmol/L (3.5-5.1); Sodium 142 mmol/L (137-145); Total Bilirubin 0.2 mg/dL (0.2-1.3); Total Protein 5.6 g/dL (6.3-8.2)
[2019-03-22 16:31] LABS: Iron Saturation 6.19 (12.00-45.00)
--- NOTE | 2019-03-24 08:35 | P.DS ---
Providers Date of admission: 03/20/19 21:56 Expected date of discharge: 03/22/19 Attending physician: Kayla Bañuelos Consults: 03/20/19 20:31 Consult Physician Routine Consulting Provider: Isaak Bennett Consult Reason/Comments: diverticulitis, possible abscess Do you want consulting provider notified?: Yes Consult Physician Routine Consulting Provider: Wan Romo Consult Reason/Comments: diverticulitis Do you want consulting provider notified?: Yes Primary care physician: Isaak Caceres [place] [facility] Course: This 78-year-old pleasant lady patient of Dr. Caceres she has underlying history of hypertension, asthma, hypothyroidism admitted to the emergency room secondary to 1day abdominal pain, patient has had chronic constipation maintained on MiraLAX, pain has progressed requiring h her ER evaluation. Patient has low- grade fever, no vomiting, negligible nausea, and this will be her first episode of diverticulitis patient denies any melena hematochezia, In the emergency room CAT scan of the abdomen and pelvis shows diverticulitis of the sigmoid rectal junction with the possibility of a small 5 mm abscess that could represent also diverticula. Patient was started on Levaquin and Flagyl, and consult to Dr. La Bennett for possible long-term IV antibiotics, patient was seen by general surgery, full liquid diet has been advanced and is tolerated, I'm anticipating that the patient might be able to tolerate a soft low residue diet starting dinner today 03/22: Patient denies having any abdominal pain today. Abdomen is soft. She denies having any nausea or vomiting. She is tolerating a low fiber diet. She has had a bowel movement that was soft and formed and not watery. Dr. Romo has been following with recommendations to follow up for colonoscopy in 6-8 weeks after resolution of his diverticulitis episode. Patient will be discharged home today in stable condition. Discharge diagnoses: 1. Acute diverticulitis with small diverticular abscess noted on CAT scan, without any evidence of perforation 2. low grade b cell lymphoma as of 08/2016 not on chemo or radiation 3 chronic anemia of chronic disease 4 History of antiphospholipid antibody syndrome, splenomegaly, 5 History of bronchial asthma without any current exacerbation, mild intermittent 6 Hypothyroidism 7 Hyperlipidemia 8 Hypertension Discharge plan: Home Impression and plan of care have been directed as dictated by the signing physician. Leanna Monroy nurse practitioner acting as scribe for signing physician. Patient Condition at Discharge: Good Plan - Discharge Summary New Discharge Prescriptions: New Moxifloxacin HCl 400 mg PO DAILY #7 tab Continue Ramipril 10 mg PO QAM Atorvastatin [Lipitor] 10 mg PO HS Montelukast [Singulair] 10 mg PO HS Levothyroxine Sodium [Synthroid] 50 mcg PO QAM Fluticasone Nasal [place] [Flonase Nasal [place]] 1 spr EA NOSTRIL BID Zolpidem [Ambien] 2.5 mg PO HS Cetirizine HCl 10 mg PO DAILY Aspirin EC [Ecotrin Low Dose] 81 mg PO DAILY Changed Polyethylene Glycol 3350 [Miralax] 0.25 tsp PO DAILY #0 Discharge Medication List Atorvastatin [Lipitor] 10 mg PO HS 07/30/16 [History] Fluticasone Nasal [place] [Flonase Nasal [place]] 1 spr EA NOSTRIL BID 07/30/16 [History] Levothyroxine Sodium [Synthroid] 50 mcg PO QAM 07/30/16 [History] Montelukast [Singulair] 10 mg PO HS 07/30/16 [History] Ramipril 10 mg PO QAM 07/30/16 [History] Zolpidem [Ambien] 2.5 mg PO HS 09/25/17 [History] Aspirin EC [Ecotrin Low Dose] 81 mg PO DAILY 03/20/19 [History] Cetirizine HCl 10 mg PO DAILY 03/20/19 [History] Moxifloxacin HCl 400 mg PO DAILY #7 tab 03/22/19 [Rx] Polyethylene Glycol 3350 [Miralax] 0.25 tsp PO DAILY #0 03/22/19 [Rx] Follow up Appointment(s)/Referral(s): Isaak Caceres MD [Primary Care Provider] - 1 Week Wan Romo DO [Doctor of Osteopathic Medicine] - 04/05/19 9:45 am Patient Instructions/Handouts: Diverticulitis (DC) Discharge Disposition: HOME SELF-CARE
== END 2019-03-22 15:22 | disposition home or self-care (01) | DRG 392 ==
LOC: EC 17:36 → 4MS4W 21:56
PROVIDERS: ADMIT Family Medicine; ATTEND Family Medicine
DX: K57.20 Diverticulitis of large intestine with perforation and abscess without bleeding (principal); C85.10 Unspecified B-cell lymphoma, unspecified site; D68.61 Antiphospholipid syndrome; R16.1 Splenomegaly, not elsewhere classified; D64.9 Anemia, unspecified; E03.9 Hypothyroidism, unspecified; E78.5 Hyperlipidemia, unspecified; I10 Essential (primary) hypertension; J45.909 Unspecified asthma, uncomplicated; K43.9 Ventral hernia without obstruction or gangrene; T37.3X5A Adverse effect of other antiprotozoal drugs, initial encounter; M19.90 Unspecified osteoarthritis, unspecified site; D72.819 Decreased white blood cell count, unspecified; E07.9 Disorder of thyroid, unspecified; Z96.652 Presence of left artificial knee joint; Z79.82 Long term (current) use of aspirin; Z79.890 Hormone replacement therapy; Z79.899 Other long term (current) drug therapy; Z88.0 Allergy status to penicillin; Z88.8 Allergy status to other drugs, medicaments and biological substances; Z90.49 Acquired absence of other specified parts of digestive tract; Z80.9 Family history of malignant neoplasm, unspecified; Z82.49 Family history of ischemic heart disease and other diseases of the circulatory system
CPT/HCPCS: 36415; 74177; 80048; 80053; 81001; 82728; 83540; 83550; 85025; 85652; 86140; 87040; 96361; 96365; 96366; 96368; 99285

== ENCOUNTER → 2020-07-03 | Outpatient (CLI) | payer MEDICARE ==
--- NOTE | 2020-07-04 10:08 | ECHOF ---
Referral Reason:I34.2 Nonrheumatic mitral (valve) stenosis MEASUREMENTS -------- HEIGHT: 157.5 cm WEIGHT: 82.1 kg BP: 121/74 RVIDd: 3.0 cm (< 3.3) IVSd: 1.3 cm (0.6 - 1.1) LVIDd: 4.6 cm (3.9 - 5.3) LVPWd: 1.2 cm (0.6 - 1.1) IVSs: 1.4 cm LVIDs: 3.4 cm LVPWs: 1.4 cm LA Diam: 4.1 cm (2.7 - 3.8) LAESV Index (A-L): 28.46 ml/m Ao Diam: 3.1 cm (2.0 - 3.7) AV Cusp: 1.0 cm (1.5 - 2.6) MV E Steve: 1.06 m/s MV DecT: 236 ms MV A Steve: 1.34 m/s MV E/A Ratio: 0.79 AV maxP.85 mmHg AV meanP.91 mmHg AR PHT: 624 ms RAP: 5.00 mmHg RVSP: 37.91 mmHg FINDINGS -------- Sinus rhythm. This was a technically adequate study. The left ventricular size is normal. There is mild concentric left ventricular hypertrophy. Overa ll left ventricular systolic function is normal with, an EF between 55 - 60 %. The right ventricle is normal in size. Normal LA size by volume 22+/-6 ml/m2. The right atrial size is normal. Interatrial and interventricular septum intact. There is moderate aortic valve sclerosis. There is mild aortic regurgitation. There is moderate a ortic stenosis present. Peak/mean gradient across the Aortic Valve is 74.85mmHg / 36.91mmHg. Severe mitral annular calcification present. [id number] mitral regurgitation is present. Mild tricuspid regurgitation present. There is mild pulmonary hypertension. The right ventricular systolic pressure, as measured by Doppler, is 37.91mmHg. Trace/mild (physiologic) pulmonic regurgitation. The aortic root size is normal. Normal inferior vena cava with normal inspiratory collapse consistent with estimated right atrial pre ssure of 5 mmHg. There is no pericardial effusion. CONCLUSIONS -------- 1. There is mild concentric left ventricular hypertrophy. 2. Overall left ventricular systolic function is normal with, an EF between 55 - 60 %. 3. Normal LA size by volume 22+/-6 ml/m2. 4. There is moderate aortic valve sclerosis. 5. There is mild aortic regurgitation. 6. There is moderate aortic stenosis present. 7. Peak/mean gradient across the Aortic Valve is 74.85mmHg / 36.91mmHg. 8. Severe mitral annular calcification present. 9. [id number] mitral regurgitation is present. 10. Mild tricuspid regurgitation present. 11. There is mild pulmonary hypertension. 12. Trace/mild (physiologic) pulmonic regurgitation. 13. There is no pericardial effusion. ELECTRONIC [employer] TECHNICIAN: Anna Lora RDCS
== END | disposition home or self-care (01) ==
LOC: RADECHMAIN 13:44
PROVIDERS: ATTEND Internal Medicine Geriatric Medicine
DX: I08.3 Combined rheumatic disorders of mitral, aortic and tricuspid valves (principal); I27.20 Pulmonary hypertension, unspecified
CPT/HCPCS: 93306

== ENCOUNTER 2021-07-03 16:49 | Emergency (ER) | payer MEDICARE ==
[2021-07-03] MEDS ORDERED: SODIUM CHLORIDE 0.9% 1,000 ML IV STA (17:49)
--- NOTE | 2021-07-03 18:08 | ED ---
General Adult HPI - General Chief complaint: Dizziness Stated complaint: STRANGE FEELING Time Seen by Provider: 07/03/21 17:35 Source: patient, RN notes reviewed Mode of arrival: ambulatory Limitations: no limitations - History of Present Illness Initial comments: 81-year-old female with a past medical history of hyperlipidemia, hypertension, chronic anemia presents to the emergency room for a chief of near syncopal episode. Patient reports that she was about to eat lunch. This was about 6 hours prior to arrival. She suddenly started to feel lightheaded and felt like she was going to pass out. She also felt like her throat was closing. Patient denies any chest pain or shortness of breath. Patient states the feeling quickly resolved within 1 minute however she still feels a little bit off. She denies headache. She denies any weakness. Patient has no other complaints at this time including shortness of breath, chest pain, abdominal pain, nausea or vomiting, headache, or visual changes. - Related Data Home Medications Medication Instructions Recorded Confirmed Atorvastatin [Lipitor] 10 mg PO HS 07/30/16 07/03/21 Fluticasone Nasal [place] [Flonase 1 spr EA NOSTRIL HS 07/30/16 07/03/21 Nasal [place]] Levothyroxine Sodium [Synthroid] 50 mcg PO DAILY 07/30/16 07/03/21 Montelukast [Singulair] 10 mg PO HS 07/30/16 07/03/21 Ramipril 10 mg PO DAILY 07/30/16 07/03/21 Zolpidem [Ambien] 2.5 mg PO HS 09/25/17 07/03/21 Aspirin EC [Ecotrin Low Dose] 81 mg PO DAILY 03/20/19 07/03/21 Cetirizine HCl 10 mg PO DAILY PRN 03/20/19 07/03/21 Cholecalciferol [Vitamin D3 (25 25 mcg PO DAILY 07/03/21 07/03/21 Mcg = 1000 Iu)] Latanoprost [Xalatan 0.005%] 1 drop BOTH EYES HS 07/03/21 07/03/21 Propylene Glycol/Peg 400/Pf 1 drop BOTH EYES BID PRN 07/03/21 07/03/21 [Systane 0.3-0.4% Eye Drop] Previous Rx's Medication Instructions Recorded polyethylene glycoL 3350 [Miralax] 0.25 tsp PO DAILY #0 03/22/19 Allergies Allergy/AdvReac Type Severity Reaction Status Date / Time Penicillins Allergy Rash/Hives Verified 07/03/21 18:52 omeprazole AdvReac Nausea & Verified 07/03/21 18:52 Vomiting & Diarrhea Review of Systems ROS Statement: Those systems with pertinent positive or pertinent negative responses have been documented in the HPI. ROS Other: All systems not noted in ROS Statement are negative. 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, osteoporosis History of Any Multi-Drug Resistant Organisms: None Reported Past Surgical History: Adenoidectomy, Cholecystectomy, Orthopedic Surgery, Tonsillectomy Additional Past Surgical History / Comment(s): Left knee arthoscopy x2, D&C, Colonoscopy, EGD, left knee replacement July 2017 Past Anesthesia/Blood Transfusion Reactions: Motion Sickness, Postoperative Nausea & Vomiting (PONV) Additional Past Anesthesia/Blood Transfusion Reaction / Comment(s): no hx blood transfusion Past Psychological History: No Psychological Hx Reported Smoking Status: Never smoker Past Alcohol Use History: None Reported Past Drug Use History: None Reported - Past Family History Father Family Medical History: Cancer Additional Family Medical History / Comment(s): father has history of renal failure. Mother Family Medical History: AFIB Additional Family Medical History / Comment(s): mother has history of atrial fibrillation Sister(s) Additional Family Medical History / Comment(s): sister has history of thyroid problems. General Exam Limitations: no limitations General appearance: alert, in no apparent distress Head exam: Present: atraumatic Eye exam: Present: normal appearance, PERRL, EOMI. Absent: scleral icterus, conjunctival injection ENT exam: Present: normal exam, mucous membranes moist Neck exam: Present: normal inspection, full ROM. Absent: tenderness Respiratory exam: Present: normal lung sounds bilaterally. Absent: respiratory distress, wheezes Cardiovascular Exam: Present: regular rate, normal rhythm, normal heart sounds GI/Abdominal exam: Present: soft, normal bowel sounds. Absent: distended, tenderness Neurological exam: Present: alert Course Vital Signs 07/03/21 07/03/21 07/03/21 16:54 18:44 19:56 Temperature 98.6 F Pulse Rate 96 75 70 Respiratory 20 17 18 Rate Blood Pressure 155/77 145/73 146/75 O2 Sat by Pulse 96 98 98 Oximetry EKG Findings - EKG Comments: EKG Findings:: NSR, vent rate 94, SC int 150, QTc 437 Medical Decision Making - Medical Decision Making 81-year-old female presents to the emergency room for a chief complaint of near syncope or lightheadedness. This lasted only a minute. States she is much better. Laboratory evaluation was obtained which was unremarkable. No evidence of infection. Chest x-ray shows a normal chest. EKG unremarkable. Patient was monitored on a vehicle monitor technician. After 3 hours she is reevaluated. States she is feeling much better. Symptoms have completely resolved. At this time patient is stable for discharge home. She will return for any worsening symptoms. - Lab Data Result diagrams: 07/03/21 18:09 07/03/21 18:09 Lab Results 07/03/21 07/03/21 07/03/21 Range/Units 18:09 18:09 18:09 WBC 5.3 (3.8-10.6) k/uL RBC 4.06 (3.80-5.40) m/uL Hgb 12.6 (11.4-16.0) gm/dL Hct 38.5 (34.0-46.0) % MCV 94.9 (80.0-100.0) fL MCH 31.0 (25.0-35.0) pg MCHC 32.7 (31.0-37.0) g/dL RDW 13.2 (11.5-15.5) % Plt Count 146 L (150-450) k/uL MPV 7.4 Neutrophils % 70 % Lymphocytes % 21 % Monocytes % 6 % Eosinophils % 2 % Basophils % 0 % Neutrophils # 3.7 (1.3-7.7) k/uL Lymphocytes # 1.1 (1.0-4.8) k/uL Monocytes # 0.3 (0-1.0) k/uL Eosinophils # 0.1 (0-0.7) k/uL Basophils # 0.0 (0-0.2) k/uL PT 28.0 H (9.0-12.0) sec INR 2.9 H (<1.2) APTT 43.2 H (22.0-30.0) sec Sodium 139 (137-145) mmol/L Potassium 4.3 (3.5-5.1) mmol/L Chloride 107 (98-107) mmol/L Carbon Dioxide 23 (22-30) mmol/L Anion Gap 9 mmol/L BUN 16 (7-17) mg/dL Creatinine 0.83 (0.52-1.04) mg/dL Est GFR (CKD-EPI)AfAm 76 (>60 ml/min/1.73 sqM) Est GFR (CKD-EPI)NonAf 66 (>60 ml/min/1.73 sqM) Glucose 102 H (74-99) mg/dL Calcium 10.1 (8.4-10.2) mg/dL Magnesium 2.2 (1.6-2.3) mg/dL Total Bilirubin 0.7 (0.2-1.3) mg/dL AST 28 (14-36) U/L ALT 17 (4-34) U/L Alkaline Phosphatase 102 (38-126) U/L Troponin I (0.000-0.034) ng/mL Total Protein 6.8 (6.3-8.2) g/dL Albumin 4.4 (3.5-5.0) g/dL Urine Color Urine Appearance (Clear) Urine pH (5.0-8.0) Ur Specific [place] (1.001-1.035) Urine Protein (Negative) Urine Glucose (UA) (Negative) Urine Ketones (Negative) Urine Blood (Negative) Urine Nitrite (Negative) Urine Bilirubin (Negative) Urine Urobilinogen (<2.0) mg/dL Ur Leukocyte Esterase (Negative) 07/03/21 07/03/21 Range/Units 18:09 19:12 WBC (3.8-10.6) k/uL RBC (3.80-5.40) m/uL Hgb (11.4-16.0) gm/dL Hct (34.0-46.0) % MCV (80.0-100.0) fL MCH (25.0-35.0) pg MCHC (31.0-37.0) g/dL RDW (11.5-15.5) % Plt Count (150-450) k/uL MPV Neutrophils % % Lymphocytes % % Monocytes % % Eosinophils % % Basophils % % Neutrophils # (1.3-7.7) k/uL Lymphocytes # (1.0-4.8) k/uL Monocytes # (0-1.0) k/uL Eosinophils # (0-0.7) k/uL Basophils # (0-0.2) k/uL PT (9.0-12.0) sec INR (<1.2) APTT (22.0-30.0) sec Sodium (137-145) mmol/L Potassium (3.5-5.1) mmol/L Chloride (98-107) mmol/L Carbon Dioxide (22-30) mmol/L Anion Gap mmol/L BUN (7-17) mg/dL Creatinine (0.52-1.04) mg/dL Est GFR (CKD-EPI)AfAm (>60 ml/min/1.73 sqM) Est GFR (CKD-EPI)NonAf (>60 ml/min/1.73 sqM) Glucose (74-99) mg/dL Calcium (8.4-10.2) mg/dL Magnesium (1.6-2.3) mg/dL Total Bilirubin (0.2-1.3) mg/dL AST (14-36) U/L ALT (4-34) U/L Alkaline Phosphatase (38-126) U/L Troponin I <0.012 (0.000-0.034) ng/mL Total Protein (6.3-8.2) g/dL Albumin (3.5-5.0) g/dL Urine Color Light Yellow Urine Appearance Clear (Clear) Urine pH 5.0 (5.0-8.0) Ur Specific [place] 1.007 (1.001-1.035) Urine Protein Negative (Negative) Urine Glucose (UA) Negative (Negative) Urine Ketones Trace H (Negative) Urine Blood Negative (Negative) Urine Nitrite Negative (Negative) Urine Bilirubin Negative (Negative) Urine Urobilinogen <2.0 (<2.0) mg/dL Ur Leukocyte Esterase Negative (Negative) Disposition Clinical Impression: Lightheadedness Disposition: HOME SELF-CARE Condition: Good Instructions (If sedation given, give patient instructions): Near Syncope (ED) Additional Instructions: Please follow-up with your doctor in one to 2 days. Return to the emergency room for any worsening symptoms. Is patient prescribed a controlled substance at d/c from ED?: No Referrals: Isaak Caceres MD [Primary Care Provider] - 1-2 days Time of Disposition: 20:23
[2021-07-03 18:17] LABS: Basophils % (A) 0 %; Eosinophils # (A) 0.1 k/uL (0-0.7); Eosinophils % (A) 2 %; HCT 38.5 % (34.0-46.0); HGB 12.6 gm/dL (11.4-16.0); Lymphocytes # (A) 1.1 k/uL (1.0-4.8); Lymphocytes % (A) 21 %; MCHC 32.7 g/dL (31.0-37.0); MCV 94.9 fL (80.0-100.0); Mean Platelet Volume 7.4; Monocytes # (A) 0.3 k/uL (0-1.0); Monocytes % (A) 6 %; Neutrophils # (A) 3.7 k/uL (1.3-7.7); Neutrophils % (A) 70 %; Platelet Count 146 k/uL (150-450); RBC 4.06 m/uL (3.80-5.40); RDW 13.2 % (11.5-15.5); WBC 5.3 k/uL (3.8-10.6)
[2021-07-03 18:29] LABS: Albumin 4.4 g/dL (3.5-5.0); Calcium 10.1 mg/dL (8.4-10.2); Magnesium 2.2 mg/dL (1.6-2.3); Potassium 4.3 mmol/L (3.5-5.1); Total Bilirubin 0.7 mg/dL (0.2-1.3); Total Protein 6.8 g/dL (6.3-8.2)
[2021-07-03 18:37] LABS: INR 2.9 (<1.2); Partial Thromboplastin Time 43.2 sec (22.0-30.0)
--- NOTE | 2021-07-03 18:43 | XR ---
EXAMINATION TYPE: XR chest 2V DATE OF EXAM: 07/03/2021 COMPARISON: 08/11/2017 HISTORY: Syncope TECHNIQUE: FINDINGS: There is no heart failure nor confluent pneumonic infiltrate. Costophrenic angles are clear . There are chest leads. There are clips at the left axilla. Bony thorax appears intact. IMPRESSION: No active cardiopulmonary disease. No change.
[2021-07-03 19:18] LABS: Appearance,Urine Clear (Clear); Bilirubin,Urine Negative (Negative); Blood,Urine Negative (Negative); Color,Urine Light Yellow; Glucose,Urine (UA) Negative (Negative); Ketones,Urine Trace (Negative); Leukocyte Esterase,Urine Negative (Negative); Nitrite,Urine Negative (Negative); Protein,Urine Negative (Negative); Specific Gravity,Urine 1.007 (1.001-1.035); Urobilinogen,Urine <2.0 mg/dL (<2.0)
[2021-07-03 19:58] VITALS: RESP 18
[2021-07-03 20:54] VITALS: BP 134/78; PULSE 81; TEMP 98.5
== END 2021-07-03 20:58 | disposition home or self-care (01) ==
LOC: EC 16:49
DX: R42 Dizziness and giddiness (principal); J45.909 Unspecified asthma, uncomplicated; E78.5 Hyperlipidemia, unspecified; I10 Essential (primary) hypertension; M19.90 Unspecified osteoarthritis, unspecified site; E07.9 Disorder of thyroid, unspecified; Z79.82 Long term (current) use of aspirin; Z88.0 Allergy status to penicillin; Z90.49 Acquired absence of other specified parts of digestive tract; Z90.89 Acquired absence of other organs
CPT/HCPCS: 36415; 71046; 80053; 81003; 83735; 84484; 85025; 85610; 85730; 93005; 96360; 99284

== ENCOUNTER → 2021-07-17 | Outpatient (CLI) | payer MEDICARE ==
--- NOTE | 2021-07-18 08:42 | ECHOF ---
Referral Reason:I35.0 Nonrheumatic aortic (valve) stenosis MEASUREMENTS -------- HEIGHT: 157.5 cm WEIGHT: 84.4 kg BP: IVSd: 1.8 cm (0.6 - 1.1) LVIDd: 3.3 cm (3.9 - 5.3) LVPWd: 1.4 cm (0.6 - 1.1) IVSs: 2.0 cm LVIDs: 2.1 cm LVPWs: 2.1 cm LAESV Index (A-L): 21.07 ml/m Ao Diam: 2.8 cm (2.0 - 3.7) AV Cusp: 1.0 cm (1.5 - 2.6) LA Diam: 3.4 cm (2.7 - 3.8) MV EXCURSION: 14.273 mm (> 18.000) MV EF SLOPE: 38 mm/s (70 - 150) EPSS: 0.5 cm MV E Steve: 1.08 m/s MV DecT: 200 ms MV A Steve: 1.55 m/s MV E/A Ratio: 0.69 AV maxP.99 mmHg AV meanP.44 mmHg AR PHT: 568 ms RAP: 5.00 mmHg RVSP: 32.83 mmHg FINDINGS -------- The left ventricular size is normal. There is moderate concentric left ventricular hypertrophy. O verall left ventricular systolic function is normal with, an EF between 55 - 60 %. The diastolic fi lling pattern is normal for the age of the patient {E/E'}. The right ventricle is normal in size. Normal LA size by volume 22+/-6 ml/m2. The right atrial size is normal. Interatrial and interventricular septum intact. There is mild aortic regurgitation. There is severe aortic stenosis present. The maximum velocity across the aortic valve is 4.03m/s. Peak/mean gradient across the Aortic Valve is 64.99mmHg / 44.4 4mmHg. Severe mitral annular calcification present. Mild mitral regurgitation is present. The peak and mean MV gradients are 9.05mmHg 5.04mmHg as measured by doppler. Mild tricuspid regurgitation present. There is no evidence of pulmonary hypertension. The right v entricular systolic pressure, as measured by Doppler, is 32.83mmHg. There is no pulmonic regurgitation present. The aortic root size is normal. Normal inferior vena cava with normal inspiratory collapse consistent with estimated right atrial pre ssure of 5 mmHg. There is no pericardial effusion. CONCLUSIONS -------- 1. The left ventricular size is normal. 2. There is moderate concentric left ventricular hypertrophy. 3. Overall left ventricular systolic function is normal with, an EF between 55 - 60 %. 4. There is mild aortic regurgitation. 5. There is severe aortic stenosis present. 6. The maximum velocity across the aortic valve is 4.03m/s. 7. Peak/mean gradient across the Aortic Valve is 64.99mmHg / 44.44mmHg. 8. Severe mitral annular calcification present. 9. Mild mitral regurgitation is present. 10. The peak and mean MV gradients are 9.05mmHg 5.04mmHg as measured by doppler. 11. Mild tricuspid regurgitation present. SODA FLAKER: Anna Lora RDCS
== END | disposition home or self-care (01) ==
LOC: RADECHMAIN 11:21
PROVIDERS: ATTEND Internal Medicine Geriatric Medicine
DX: I08.3 Combined rheumatic disorders of mitral, aortic and tricuspid valves (principal)
CPT/HCPCS: 93306

== ENCOUNTER → 2021-08-22 | Outpatient (CLI) | payer MEDICARE ==
[2021-08-22 10:21] LABS: HCT 36.7 % (34.0-46.0); HGB 12.1 gm/dL (11.4-16.0); MCH 30.8 pg (25.0-35.0); MCV 93.1 fL (80.0-100.0); Mean Platelet Volume 7.5; Platelet Count 144 k/uL (150-450); RBC 3.95 m/uL (3.80-5.40); RDW 13.3 % (11.5-15.5); WBC 4.2 k/uL (3.8-10.6)
[2021-08-22 10:35] LABS: Potassium 4.5 mmol/L (3.5-5.1)
== END | disposition home or self-care (01) ==
LOC: LABPAT 08:58
PROVIDERS: ATTEND Internal Medicine Interventional Cardiology
DX: Z01.812 Encounter for preprocedural laboratory examination (principal); E03.9 Hypothyroidism, unspecified; E78.5 Hyperlipidemia, unspecified; R42 Dizziness and giddiness; R79.9 Abnormal finding of blood chemistry, unspecified
CPT/HCPCS: 36415; 80051; 82565; 84520; 85027

== ENCOUNTER → 2021-08-22 | Outpatient (CLI) | payer MEDICARE ==
[2021-08-22 15:38] LABS: LDL Cholesterol,Calculated 87.8 mg/dL (0.0-131.0)
== END | disposition home or self-care (01) ==
LOC: LABWHC1 09:11
PROVIDERS: ATTEND Internal Medicine Geriatric Medicine
DX: E03.9 Hypothyroidism, unspecified (principal); E78.5 Hyperlipidemia, unspecified; R79.9 Abnormal finding of blood chemistry, unspecified
CPT/HCPCS: 36415; 80061; 83036; 84439; 84443

== ENCOUNTER 2021-08-29 05:56 | Day surgery (SDC) | payer MEDICARE ==
[2021-08-27 18:16] VITALS: BMI 33.8
[2021-08-29] MEDS ORDERED: NITROGLYCERIN SL TABS 0.4 MG TAB SUBLINGUAL PRN (06:01)
[2021-08-29] MEDS ORDERED: ALPRAZolam 0.25 MG TAB PO PRN (06:01)
[2021-08-29] MEDS ORDERED: ALPRAZolam 0.5 MG TAB PO PRN (06:01)
[2021-08-29] MEDS ORDERED: SODIUM CHLORIDE 0.9% 1,000 ML in EMPTY BAG 1 BAG IV SCH (06:01)
[2021-08-29] MEDS ORDERED: HEPARIN SODIUM,PORCINE 2,500 UNIT in SODIUM CHLORIDE 0.9% 250 ML IRRIGATION PRN (07:00)
[2021-08-29] MEDS ORDERED: ASPIRIN 325 MG TAB PO ONE (07:00)
[2021-08-29] MEDS ORDERED: HEPARIN SODIUM,PORCINE 10,000 UNIT in SODIUM CHLORIDE 0.9% 1,000 ML IRRIGATION PRN (07:00)
[2021-08-29 07:01] VITALS: RESP 16; TEMP 99.2
[2021-08-29] MEDS ORDERED: BENZOCAINE SPRAY 1 CAN TOPICAL ONE (07:16)
[2021-08-29] MEDS ORDERED: MIDAZOLAM 2 MG/2 ML VIAL IVP ONE (07:17)
[2021-08-29] MEDS ORDERED: fentaNYL (PF) 50 MCG/ML 5 ML AMP IVP ONE (07:17)
[2021-08-29] MEDS ORDERED: LIDOCAINE 1% INJ 10MG/ML (20 ML MDV) ONE (07:28)
[2021-08-29] MEDS ORDERED: VERAPAMIL 2.5 MG/ML 2 ML AMP ONE (07:28)
[2021-08-29] MEDS ORDERED: LIDOCAINE 1% INJ 10MG/ML (20 ML MDV) SQ ONE ×2 (07:51→07:54)
[2021-08-29] MEDS ORDERED: VERAPAMIL SYRINGE (5 MG/10 ML) INTRAARTER ONE (07:55)
[2021-08-29] MEDS ORDERED: HEPARIN SODIUM 1,000 UN/ML (10ML VL) ONE (08:10)
[2021-08-29] MEDS ORDERED: HEPARIN SODIUM 1,000 UN/ML (10ML VL) IVP ONE (08:12)
[2021-08-29 08:17] LABS: O2 Sat Blood Gas 69.8 %
[2021-08-29 08:20] LABS: O2 Sat Blood Gas 69.1 %
[2021-08-29 08:22] LABS: O2 Sat Blood Gas 95.3 %
[2021-08-29] MEDS ORDERED: IOPAMIDOL-370 125ML BTL INJ ONE (08:25)
[2021-08-29] MEDS ORDERED: RX INFO: IV CONTRAST WAS GIVEN 1 EACH MISC MISCELLANE PRN (08:35)
[2021-08-29] MEDS ORDERED: SODIUM CHLORIDE 0.9% 1,000 ML IV SCH (08:45)
[2021-08-29] MEDS ORDERED: LEVOTHYROXINE 50 MCG TAB PO SCH (09:00)
[2021-08-29] MEDS ORDERED: NON FORMULARY DRUG (Ramipril [Ramipril] 10 MG Capsule) PO SCH (09:00)
--- NOTE | 2021-08-29 10:07 | LTR ---
August 29, 2021 To: Dr. Caceres Regarding: Lynda Flores (38) Dear Dr. Caceres, I had the pleasure of performing cardiac catheterization on Mrs. Flores at [facility] on August 29, and a full copy of the procedure note will be forwarded to you. In brief, she was found to have significant disease involving the right coronary artery with severe aortic stenosis. At this time she will be evaluated for transaortic valve replacement and reevaluation of her right coronary artery to see if revascularization is needed prior to her intervention. I will keep you updated on her progress. Thank you again for allowing me to participate in this patient's care. Please feel free to call with any questions. Sincerely, Evelina Tinoco M.D. SANTANA / NIMO: [id number] /
--- NOTE | 2021-08-29 10:07 | CC ---
CARDIAC CATHETERIZATION REPORT DATE OF SERVICE: 08/29/2021 Mrs. Flores is an 81-year-old female with known history of hypertension and hyperlipidemia who was found to have severe aortic stenosis. In view of that, recommendation was made regarding cardiac catheterization. The procedure, its risks and complications were discussed with the patient, who was in full understanding and agreement. PROCEDURE DESCRIPTION: Patient was brought to the tin can laborer in a fasting, semi-sedated state after receiving fentanyl and Benadryl and achieving a moderate conscious sedated state. Using Xylocaine anesthesia and Seldinger technique, a 6-[place] sheath was introduced in the right radial artery. The intravenous catheter in the right basilic vein was exchanged for a 6-[place] sheath. Subsequently right heart catheterization was performed using [place] catheter. Multiple blood pressures and samples were obtained. Cardiac output by thermodilution was calculated. Following that, selective right and left coronary angiography was performed using 5-[place] 3.5 bend right and left [place] catheters. Multiple views were taken of the arteries, including hemiaxial views. Following that, the right [place] was used to cross the aortic valve and left ventricular end- diastolic pressure was calculated. Following that, catheter and sheaths were removed. Hemostasis was obtained with deployment of a TR band and compression of the right brachial area. There was no immediate complication. Patient was returned to her room in stable condition. FINDINGS: HEMODYNAMICS: Pulmonary artery systolic 42 with a diastolic of 18 and a mean of 26 mmHg. Pulmonary capillary wedge pressure A-wave of 18, V-wave of 18, with a mean of 15 mmHg. Right ventricular systolic pressure of 42 with a diastolic of 11, right atrium A-wave of 11, V-wave 9 with a mean of 7 mmHg. Left ventricular end-diastolic pressure of 20 to 25 mmHg. Left ventricular systolic pressure of 180 mmHg with an ascending aortic pressure of 125 mmHg. The peak gradient across the aortic valve was 63 mmHg with a mean of 56 mmHg and a valve area of 0.54 cm2. Cardiac output by thermodilution was 6.7 L/minute and by Krystal of 5.5 L/minute. The valve area was between 0.5 and 0.66 cm2. FLUOROSCOPY: Severe calcification involving the aortic valve, the mitral anulus and the coronary arteries. LEFT MAIN: This is a large-sized vessel, short in distance, bifurcating into left circumflex, left anterior descending artery artery. Left main coronary artery has no evidence of high-grade stenosis. LEFT ANTERIOR DESCENDING ARTERY: This is a large-sized vessel reaching to the apex with a wrap around the apex segment. The proximal left anterior descending artery has a 20% to 30% plaque. The rest of the vessel has no high-grade stenosis. LEFT CIRCUMFLEX: This is a large nondominant vessel giving rise to 3 obtuse marginal branches. The left circumflex and its branches have no evidence of obstructive coronary artery disease. RIGHT CORONARY ARTERY: This is a dominant vessel, moderate in caliber, bifurcating distally into PDA and posterolateral segment and branches, calcified. The mid segment of the RCA has an area of stenosis up to 85% to 90% stenosis. The rest of the vessel has no high-grade stenosis. LEFT VENTRICULOGRAM: Left ventriculogram was not performed. CONCLUSION: 1. Significant stenosis involving the mid right coronary artery in a long segment. 2. Severe aortic stenosis. RECOMMENDATIONS: In view of findings and anatomy, the patient will be evaluated for aortic valve replacement, probably by the transaortic valve approach, with either angioplasty and stenting prior to that to the right coronary artery or continued medical therapy. Those findings and recommendations were discussed with the patient and her family, who are in full understanding and agreement. Duration of sedation was 34 minutes. MMODL / IJN: [id number] / DEO
[2021-08-29 13:25] VITALS: BP 118/58; PULSE 75
[2021-08-29] MEDS ORDERED: MONTELUKAST 10 MG TAB PO SCH (18:30)
[2021-08-29] MEDS ORDERED: LATANOPROST 0.005% OPHTH DROPS 2.5 ML BTL BOTH EYES SCH (21:00)
[2021-08-29] MEDS ORDERED: ATORVASTATIN 10 MG TAB PO SCH (21:00)
[2021-08-30] MEDS ORDERED: ASPIRIN 81 MG PO SCH (09:00)
--- NOTE | 2021-08-30 14:58 | ECHOT ---
TRANSESOPHAGEAL ECHOCARDIOGRAM INDICATION: Evaluation of aortic valve. PROCEDURE DESCRIPTION: After explaining the procedure to the patient, its risks and complications, her blood pressure, heart rate and O2 saturation were monitored. The throat was sprayed with Cetacaine. She received 1 mg intravenous Versed, 50 mcg intravenous fentanyl. The probe was introduced into the esophagus without difficulty. Images were obtained. Following that, the probe was removed. There was no immediate complication. FINDINGS: Left atrial size is mildly dilated. Left atrial appendage is normal. Left ventricular size and systolic function normal. The aortic valve is a tricuspid valve, severely calcified, with a reduction of the opening. By planimetry, the aortic valve area is 0.8 cm2. Mitral valve reveals severe mitral anulus calcification. Tricuspid valve is normal. Descending thoracic aorta appears normal. No pericardial effusion was noted. Doppler, pulse wave and color Doppler were obtained and revealed mild aortic, mitral and tricuspid regurgitation. The peak gradient across the aortic valve was 85 mmHg with a mean of 51 mmHg. There was no shunting by color Doppler study. CONCLUSION: 1. Mildly dilated left atrium with normal appearance of left atrial appendage. 2. Normal left ventricular size and systolic function. 3. Severe tricuspid aortic valve stenosis with mild aortic regurgitation. 4. Mild annulus calcification with mild mitral regurgitation. 5. Mild tricuspid regurgitation. 6. No shunting across the interatrial septum. 7. No pericardial effusion. MMODL / IJN: [id number] /
== END 2021-08-29 13:38 | disposition home or self-care (01) ==
LOC: CATHCVL 05:56
PROVIDERS: ATTEND Internal Medicine Interventional Cardiology
DX: I25.10 Atherosclerotic heart disease of native coronary artery without angina pectoris (principal); I25.84 Coronary atherosclerosis due to calcified coronary lesion; I08.3 Combined rheumatic disorders of mitral, aortic and tricuspid valves; I10 Essential (primary) hypertension; E78.5 Hyperlipidemia, unspecified; Z82.49 Family history of ischemic heart disease and other diseases of the circulatory system; Z79.899 Other long term (current) drug therapy; Z79.82 Long term (current) use of aspirin; Z88.0 Allergy status to penicillin
CPT/HCPCS: 93312; 93320; 93325; 93453; 85018; 82810; 87635; C1769 ×2; C1894; J2250; J2001; J3010; J1644; Q9967

== ENCOUNTER → 2023-08-15 | Outpatient (CLI) | payer MEDICARE ==
[2023-08-15 14:55] LABS: African American GFR (CKD) 55 (>60 ml/min/1.73 sqM); Blood Urea Nitrogen 22 mg/dL (7-17); Non-African American GFR(CKD) 48 (>60 ml/min/1.73 sqM)
--- NOTE | 2023-08-15 15:44 | CT ---
EXAMINATION TYPE: CT chest w con DATE OF EXAM: 08/15/2023 COMPARISON: CT abdomen pelvis dated 03/20/2019 HISTORY: coughing CT DLP: 362.8 mGycm Automated exposure control for dose reduction was used. TECHNIQUE: CT scan of the chest is performed with IV Contrast, patient injected with 80 mL of Isovue 300. MIP I mages are created on CT scanner and reviewed. 3D reconstructed images are created on an independent w orkstation and reviewed. FINDINGS: The lungs are clear of consolidative/airspace density or abnormal interstitial density. There is a sm all focal ill-defined density in the right upper lobe measuring approximate 4 to 5 mm in size. No fernanda picious lung masses or nodules are seen. There is no pleural effusion or pneumothorax. There is no mediastinal, hilar or axillary adenopathy. There is a stent in the ascending thoracic aor ta. Limited scanning the upper abdomen reveals persistent splenomegaly. There is a stable dense calcifica tion in the dome of the liver. No focal osseous lesions are seen. IMPRESSION: 1. No acute cardiopulmonary disease. 2. Ascending thoracic aortic stent. 3. Persistent splenomegaly.
== END | disposition home or self-care (01) ==
LOC: RADCTMAIN 14:16
PROVIDERS: ATTEND Internal Medicine Geriatric Medicine
DX: R91.8 Other nonspecific abnormal finding of lung field (principal); R16.1 Splenomegaly, not elsewhere classified; Z95.828 Presence of other vascular implants and grafts
CPT/HCPCS: 82565; 84520; 71260; 36415; Q9967

== ENCOUNTER → 2024-03-23 | Outpatient (CLI) | payer MEDICARE ==
[2024-03-23 10:14] LABS: African American GFR (CKD) 66 (>60 ml/min/1.73 sqM); Blood Urea Nitrogen 16 mg/dL (7-17); Non-African American GFR(CKD) 57 (>60 ml/min/1.73 sqM)
--- NOTE | 2024-04-05 10:35 | CT ---
EXAMINATION TYPE: CT ChestAbdPelvis w con CT DLP: 1289 mGycm, Automated exposure control for dose reduction was used. DATE OF EXAM: 03/23/2024 1:05 PM COMPARISON: 08/15/2023 CLINICAL INDICATION:Female, 83 years old with history of C83.08 lymphoma; PHH, f/u lymphoma recent pn eumonia Technique: CT ChestAbdPelvis w con; Multiple axial images were obtained. Two-dimensional coronal and sagittal reconstructions were obtained. Contrast used:100ml mL of Isovue 300 with IV Contrast, Oral contrast used: with Oral Contrast Findings: CHEST: LUNGS/ PLEURA: Scattered peripheral reticular opacities possibly sequela prior infection. No focal co nsolidation pneumothorax or pleural effusion. Findings are new from 08/15/2023. Calcification along t he right diaphragm. AIRWAY: Patent and unremarkable. HEART: Size within normal limits. Postsurgical changes of aortic valve with mitral valve annular cusp patient's. Moderate to severe coronary artery calcific patient's. MEDIASTINUM: No gross evidence of adenopathy. VASCULATURE: No aortic aneurysm. MUSCULOSKELETAL: No acute osseous abnormalities. SOFT TISSUES/LYMPH NODES: Unremarkable. LOWER NECK: No significant findings. ABDOMEN: ABDOMEN LIVER: Unremarkable GALLBLADDER AND BILE DUCTS: Gallbladder surgically absent. PANCREAS: Unremarkable. SPLEEN: r spleen is enlarged measuring up to at least 18.4 cm. ADRENAL GLANDS: Unremarkable. KIDNEYS AND URETERS: No evidence of hydronephrosis or renal calculus. The ureters are unremarkable. PELVIS BLADDER: Unremarkable REPRODUCTIVE: Unremarkable. ABDOMEN & PELVIS STOMACH AND BOWEL: No evidence of bowel obstruction. Scattered colonic diverticula. PERITONEUM: No evidence of pneumoperitoneum or free fluid. VASCULATURE: No evidence of aortic aneurysm. MUSCULOSKELETAL: No acute osseous abnormalities LYMPH NODES: No gross evidence for lymphadenopathy. SOFT TISSUE/ABDOMINAL WALL: Fat-containing umbilical hernia. IMPRESSION: 1. Scattered peripheral reticular opacities possibly sequela prior infection. Findings are new from 08/15/2023. Consider short-term follow-up in 3-6 months. 2. No evidence for acute abdominal process. 3. Post surgical changes of the heart with mitral valve annular cusp patient's. 4. Splenomegaly which can be seen in setting of lymphoma. 5. Fat-containing umbilical hernia.
== END | disposition home or self-care (01) ==
LOC: RADCTMAIN 09:26
PROVIDERS: ATTEND Internal Medicine Hematology & Oncology
DX: C83.08 Small cell B-cell lymphoma, lymph nodes of multiple sites (principal); K42.9 Umbilical hernia without obstruction or gangrene; R16.1 Splenomegaly, not elsewhere classified; Z87.01 Personal history of pneumonia (recurrent); D61.818 Other pancytopenia; D68.312 Antiphospholipid antibody with hemorrhagic disorder
CPT/HCPCS: 82565; 84520; 71260; 74177; 36415; Q9967

== ENCOUNTER → 2024-04-27 | Outpatient (CLI) | payer MEDICARE | END | disposition home or self-care (01) | LOC: LABPRL 12:34 | PROVIDERS: ATTEND Internal Medicine Hematology & Oncology | DX: C83.08 Small cell B-cell lymphoma, lymph nodes of multiple sites (principal); D61.818 Other pancytopenia; D68.312 Antiphospholipid antibody with hemorrhagic disorder; E03.9 Hypothyroidism, unspecified; E78.5 Hyperlipidemia, unspecified; I10 Essential (primary) hypertension; I35.0 Nonrheumatic aortic (valve) stenosis; J45.909 Unspecified asthma, uncomplicated; M50.20 Other cervical disc displacement, unspecified cervical region; R16.1 Splenomegaly, not elsewhere classified; Z71.3 Dietary counseling and surveillance; Z71.89 Other specified counseling | CPT/HCPCS: 80053; 82728; 82784; 83540; 83550; 84165; 84466; 86706; 87340 ==

== ENCOUNTER → 2024-08-06 | Outpatient (CLI) | payer MEDICARE ==
[2024-08-06 15:18] LABS: Basophils # (A) 0.04 X 10*3/uL (0.00-0.10); Basophils % (A) 0.8 %; Eosinophils % (A) 1.9 %; HCT 34.5 % (37.2-46.3); HGB 11.4 g/dL (12.0-15.0); Lymphocytes # (A) 1.22 X 10*3/uL (0.90-5.00); Lymphocytes % (A) 23.2 %; MCH 31.8 pg (27.0-32.0); MCV 96.4 FL (80.0-97.0); Mean Platelet Volume 9.6 FL (9.5-12.2); Monocytes # (A) 0.39 X 10*3/uL (0.20-1.00); Monocytes % (A) 7.4 %; NRBC Per 100 WBC 0 X 10*3/uL (0.00-0.01); Neutrophils # (A) 3.49 X 10*3/uL (1.80-7.70); Neutrophils % (A) 66.5 %; Platelet Count 164 X 10*3/uL (140-440); RBC 3.58 X 10*6/uL (4.10-5.20); RDW 14.7 % (11.5-14.5); WBC 5.25 X 10*3/uL (4.50-10.00)
[2024-08-06 15:49] LABS: Blood Urea Nitrogen 18.8 mg/dL (9.0-27.0); Chloride 106 mmol/L (96-109); Chol/HDL Ratio 2.52 Ratio; Creatine Kinase 47 U/L (26-186); Glucose 100 mg/dL (70-110); LDL Cholesterol,Calculated 69.6 mg/dL (0.0-131.0); Potassium 4.6 mmol/L (3.5-5.5); Sodium 142 mmol/L (135-145)
[2024-08-06 15:50] LABS: % Iron Saturation 23.93 (12.00-45.00); ALT 15 U/L (8-44); AST 22 U/L (13-35); Albumin 4.2 g/dL (3.8-4.9); Alkaline Phosphatase 91 U/L (41-126); Calcium 9.5 mg/dL (8.7-10.3); Carbon Dioxide 26.1 mmol/L (21.6-31.8); Globulin 1.4 g/dL (1.6-3.3); Iron 73 UG/DL (50-170); Total Bilirubin 0.8 mg/dL (0.3-1.2); Total Iron Binding Capacity 305 UG/DL (228-460); Total Protein 5.6 g/dL (6.2-8.2)
== END | disposition home or self-care (01) ==
LOC: LABWHC1 09:36
PROVIDERS: ATTEND Internal Medicine Geriatric Medicine
DX: Z00.00 Encounter for general adult medical examination without abnormal findings (principal); I10 Essential (primary) hypertension; E78.2 Mixed hyperlipidemia; E03.9 Hypothyroidism, unspecified; D50.9 Iron deficiency anemia, unspecified; R73.9 Hyperglycemia, unspecified
CPT/HCPCS: 36415; 80053; 80061; 82550; 83036; 83540; 83550; 84439; 84443; 85025

== ENCOUNTER → 2025-03-02 | Outpatient (CLI) | payer MEDICARE ==
[2025-03-02 16:08] LABS: ALT 23 U/L (8-44); AST 32 U/L (13-35); Chol/HDL Ratio 1.87 Ratio; LDL Cholesterol,Calculated 35.7 mg/dL (0.0-131.0); VLDL Calculation 17.38 mg/dL (5.00-40.00)
== END | disposition home or self-care (01) ==
LOC: LABWHC1 09:49
PROVIDERS: ATTEND Internal Medicine Interventional Cardiology
DX: E78.2 Mixed hyperlipidemia (principal); D50.9 Iron deficiency anemia, unspecified; R73.9 Hyperglycemia, unspecified; E03.9 Hypothyroidism, unspecified
CPT/HCPCS: 36415; 80061; 84450; 84460

== ENCOUNTER 2025-03-30 16:04 | Inpatient (IN) | payer MEDICARE ==
--- NOTE | 2025-03-30 16:39 | ED ---
SOB HPI - General Chief Complaint: Shortness of Breath Stated Complaint: short of breath, racing heart Time Seen by Provider: 03/30/25 16:38 Source: patient, RN notes reviewed, old records reviewed Mode of arrival: ambulatory Limitations: no limitations - History of Present Illness Initial Comments: This is a 84-year-old female to ER with significant shortness of breath dyspnea history of asthma. Patient was sent in by dictaphone mechanic in regards to likely CHF with lower extremity edema and shortness of breath increasing with activity. MD Complaint: shortness of breath, "asthma attack", anxiety -: days(s) Severity: severe Severity scale (1-10): 8 Consistency: constant Improves With: nothing Worsens With: exertion Known History Of: COPD, asthma, congestive heart failure Associated Symptoms: lower extremity pain (And swelling), palpitations Treatments Prior to Arrival: none - Related Data Home Medications Medication Instructions Recorded Confirmed Levothyroxine Sodium [Synthroid] 50 mcg PO DAILY 07/30/16 03/30/25 Montelukast [Singulair] 10 mg PO HS 07/30/16 03/30/25 Aspirin EC [Ecotrin Low Dose] 81 mg PO DAILY 03/20/19 03/30/25 Cetirizine HCl 10 mg PO DAILY 03/20/19 03/30/25 Cholecalciferol [Vitamin D3 (25 25 mcg PO BID 07/03/21 03/30/25 Mcg = 1000 Iu)] Latanoprost [Xalatan 0.005%] 1 drop BOTH EYES HS 07/03/21 03/30/25 Sodium Chloride [Saline Nasal 1 spray EA NOSTRIL HS 08/27/21 03/30/25 [place]] polyethylene glycoL 3350 [Miralax] 0.33 tsp PO DAILY 08/27/21 03/30/25 Albuterol Nebulized [Ventolin 2.5 mg INHALATION RT-TID PRN 03/30/25 03/30/25 Nebulized] Atorvastatin [Lipitor] 40 mg PO HS 03/30/25 03/30/25 Brimonidine Tartrate [Alphagan P 1 drops BOTH EYES BID 03/30/25 03/30/25 0.2% Ophth Soln] Furosemide [Lasix] 20 mg PO DAILY PRN 03/30/25 03/30/25 Multivitamins, Thera [Multivitamin 1 tab PO DAILY 03/30/25 03/30/25 (formulary)] Potassium Chloride ER [K-Dur 10] 10 meq PO DAILY PRN 03/30/25 03/30/25 ramipriL 5 mg PO DAILY 03/30/25 03/30/25 Allergies Allergy/AdvReac Type Severity Reaction Status Date / Time Penicillins Allergy Rash/Hives Verified 08/27/21 17:53 omeprazole AdvReac Nausea & Verified 08/27/21 17:53 Vomiting & Diarrhea Review of Systems ROS Statement: Those systems with pertinent positive or pertinent negative responses have been documented in the HPI. ROS Other: All systems not noted in ROS Statement are negative. 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 cancer bcell lymphoma History of Any Multi-Drug Resistant Organisms: None Reported Past Surgical History: Adenoidectomy, Cholecystectomy, Orthopedic Surgery, Tonsillectomy Additional Past Surgical History / Comment(s): Left knee arthoscopy x2, D&C, Colonoscopy, EGD, left knee replacement July 2017 Past Anesthesia/Blood Transfusion Reactions: Motion Sickness, Postoperative Nausea & Vomiting (PONV) Additional Past Anesthesia/Blood Transfusion Reaction / Comment(s): no hx blood transfusion Past Psychological History: No Psychological Hx Reported Past Alcohol Use History: None Reported - Past Family History Father Family Medical History: Cancer, Renal Disease Additional Family Medical History / Comment(s): cancer of spleen. father has history of renal failure. Mother Family Medical History: AFIB Additional Family Medical History / Comment(s): mother has history of atrial fibrillation Sister(s) Additional Family Medical History / Comment(s): sister has history of thyroid problems. General Exam Limitations: no limitations General appearance: alert, in no apparent distress, anxious, in distress Head exam: Present: atraumatic, normocephalic, normal inspection Eye exam: Present: normal appearance, PERRL, EOMI. Absent: scleral icterus, conjunctival injection, periorbital swelling ENT exam: Present: normal exam, mucous membranes moist Neck exam: Present: normal inspection. Absent: tenderness, meningismus, lymphadenopathy Respiratory exam: Present: respiratory distress, wheezes, rales, rhonchi, decreased breath sounds, prolonged expiratory. Absent: stridor Cardiovascular Exam: Present: normal rhythm, tachycardia, normal heart sounds. Absent: systolic murmur, diastolic murmur, rubs, gallop, clicks GI/Abdominal exam: Present: soft, normal bowel sounds. Absent: distended, tenderness, guarding, rebound, rigid Extremities exam: Present: normal inspection, full ROM, normal capillary refill. Absent: tenderness, pedal edema, joint swelling, calf tenderness Back exam: Present: normal inspection Neurological exam: Present: alert, oriented X3, CN II-XII intact Psychiatric exam: Present: normal affect, normal mood Skin exam: Present: warm, dry, intact, normal color. Absent: rash Course Vital Signs 03/30/25 03/30/25 03/30/25 16:29 18:01 18:15 Temperature 99.6 F Pulse Rate 113 H 101 H 100 Pulse Rate [ Choke Setter ] Respiratory 20 Rate Blood Pressure 113/70 Blood Pressure [Left Arm] O2 Sat by Pulse 98 Oximetry 03/30/25 03/30/25 03/30/25 20:06 20:11 20:14 Temperature Pulse Rate 118 H 115 H 117 H Pulse Rate [ Choke Setter ] Respiratory 18 17 18 Rate Blood Pressure 152/95 Blood Pressure [Left Arm] O2 Sat by Pulse 96 Oximetry 03/30/25 03/31/25 03/31/25 21:46 00:05 04:00 Temperature Pulse Rate 94 Pulse Rate [ 84 98 Choke Setter ] Respiratory 19 18 18 Rate Blood Pressure 104/65 Blood Pressure 103/67 94/58 [Left Arm] O2 Sat by Pulse 100 100 99 Oximetry 03/31/25 03/31/25 03/31/25 07:15 07:51 08:33 Temperature 98.2 F Pulse Rate 93 96 116 H Pulse Rate [ Choke Setter ] Respiratory 16 18 18 Rate Blood Pressure 99/53 99/64 112/66 Blood Pressure [Left Arm] O2 Sat by Pulse 98 99 99 Oximetry 03/31/25 03/31/25 03/31/25 08:43 09:39 11:25 Temperature Pulse Rate 97 91 Pulse Rate [ Choke Setter ] Respiratory 18 18 18 Rate Blood Pressure 99/78 94/53 Blood Pressure [Left Arm] O2 Sat by Pulse 98 100 Oximetry 03/31/25 03/31/25 03/31/25 13:05 13:56 14:10 Temperature 98.4 F 100.2 F H Pulse Rate 98 96 102 H Pulse Rate [ Choke Setter ] Respiratory 18 16 18 Rate Blood Pressure 97/53 112/68 104/63 Blood Pressure [Left Arm] O2 Sat by Pulse 99 Oximetry 03/31/25 03/31/25 03/31/25 14:30 14:40 15:00 Temperature 100.1 F H 100.2 F H 100.3 F H Pulse Rate 98 89 89 Pulse Rate [ Choke Setter ] Respiratory 18 18 18 Rate Blood Pressure 103/60 103/59 107/78 Blood Pressure [Left Arm] O2 Sat by Pulse Oximetry 03/31/25 03/31/25 03/31/25 15:35 16:17 17:11 Temperature 100.8 F H 99.0 F 98.7 F Pulse Rate 84 77 81 Pulse Rate [ Choke Setter ] Respiratory 18 18 16 Rate Blood Pressure 107/78 108/72 107/67 Blood Pressure [Left Arm] O2 Sat by Pulse 99 Oximetry 03/31/25 03/31/25 03/31/25 17:24 17:44 18:23 Temperature 98.9 F 98.4 F 98.1 F Pulse Rate 94 91 89 Pulse Rate [ Choke Setter ] Respiratory 18 18 18 Rate Blood Pressure 123/73 117/73 108/57 Blood Pressure [Left Arm] O2 Sat by Pulse Oximetry - Reevaluation(s) Reevaluation #1: 03/30/25 19:39 Medical records reviewed Reevaluation #2: 03/30/25 19:39 Patient symptoms relatively unchanged Reevaluation #3: 03/30/25 19:39 Patient informed of results questions answered Reevaluation #4: Was pt. sent in by a medical professional or institution (, PA, REPAIRER, urgent care, hospital, or half-way...) When possible be specific @ -no Did you speak to anyone other than the patient for history (EMS, parent, family, police, friend...)? What history was obtained from this source @ -no Did you review nursing and triage notes (agree or disagree)? Why? @ -agree Are old charts reviewed (outside hosp., previous admission, EMS record, old EKG, old radiological studies, urgent care reports/EKG's, half-way records)? Report findings @ -yes Differential Diagnosis (chest pain, altered mental status, abdominal pain women, abdominal pain men, vaginal bleeding, weakness, fever, dyspnea, syncope, headache, dizziness, GI bleed, back pain, seizure, CVA, palpatations, mental health, musculoskeletal)? @ -prior EKG interpreted by me (3pts min.). @ -yes X-rays interpreted by me (1pt min.). @ -yes positive for acute CHF CT interpreted by me (1pt min.). @ -yes positive for acute CHF U/S interpreted by me (1pt. min.). @ -no What testing was considered but not performed or refused? (CT, X-rays, U/S, labs)? Why? @ -none What meds were considered but not given or refused? Why? @ -none Did you discuss the management of the patient with other professionals (armaan rowan i.e. , PA, REPAIRER, lab, RT, psych nurse, protective services social worker, cookie breaker, teacher, chief development officer, manager case)? Give summary @ -no Was smoking cessation discussed for >3mins.? @ -no Was critical care preformed (if so, how long)? @ -no Were there social determinants of health that impacted care today? How? (Homelessness, low income, unemployed, alcoholism, drug addiction, transportation, low edu. Level, literacy, decrease access to med. care, retirement, rehab)? @ -none Was there de-escalation of care discussed even if they declined (Discuss DNR or withdrawal of care, Hospice)? DNR status @ -no What co-morbidities impacted this encounter? (DM, HTN, Smoking, COPD, CAD, Cancer, CVA, ARF, Chemo, Hep., AIDS, mental health diagnosis, sleep apnea, morbid obesity)? @ -none Was patient admitted / discharged? Hospital course, mention meds given and route, prescriptions, significant lab abnormalities, going to OR and other pertinent info. @ - 84 female to the ER for evaluation patient coming in today for evaluation of severe shortness of breath with CHF will admit for diuresis IV Lasix echo, Admitted CHF Undiagnosed new problem with uncertain prognosis? @ -no Drug Therapy requiring intensive monitoring for toxicity (Heparin, Nitro, Insulin, Cardizem)? @ -no Were any procedures done? @ -no Diagnosis/symptom? @ - Acute, or Chronic, or Acute on Chronic? @ -Acute Uncomplicated (without systemic symptoms) or Complicated (systemic symptoms)? @ -Complicated Side effects of treatment? @ -no Exacerbation, Progression, or Severe Exacerbation? @ -exacerbation Poses a threat to life or bodily function? How? (Chest pain, USA, MA, pneumonia, PE, COPD, DKA, ARF, appy, cholecystitis, CVA, Diverticulitis, Homicidal, Suicidal, threat to staff... and all critical care pts) @ -yes extremes of age Reevaluation #5: Differential Dyspnea: Coronary syndrome, arrhythmia, tamponade, asthma, COPD, pulmonary embolism, pneumonia, pneumothorax, pulmonary effusion, anaphylaxis, diabetic ketoacidosis, flailed chest, pulmonary contusion, diaphragmatic rupture, anemia, rayshawn romuscular, this is not meant to be an all-inclusive list. Differential Palpitations Ventricular arrhythmias, atrial arrhythmias, myocardial infarction, anemia, thyrotoxicosis, electrolyte imbalance, hypokalemia, pulmonary embolism, pulmonary disease, drugs, alcohol, anxiety, stress.... This is not meant to be an all-inclusive list. - Consultations Consultation #1: Spoke with [facility] who agrees to admit this patient Medical Decision Making - Medical Decision Making 84 female to the ER for evaluation patient coming in today for evaluation of severe shortness of breath with CHF will admit for diuresis IV Lasix echo, - Lab Data Result diagrams: 04/03/25 07:11 04/03/25 07:11 Lab Results 03/30/25 03/30/25 03/30/25 Range/Units 17:00 17:00 17:00 WBC 15.47 H (4.50-10.00) 10*3/uL RBC 1.32 L (4.10-5.20) 10*6/uL Hgb 6.5 L* (12.0-15.0) g/dL Hct 16.9 L* (37.2-46.3) % MCV 128.0 H (80.0-97.0) fL MCH 49.2 H (27.0-32.0) pg MCHC 38.5 H (32.0-37.0) g/dL Plt Count 263 (140-440) 10*3/uL MPV 9.5 (9.5-12.2) fL Immature Gran % (Auto) 0.8 % Neutrophils % 82.8 % Lymphocytes % 8.3 % Monocytes % 6.9 % Eosinophils % 0.9 % Basophils % 0.3 % Immature Gran # 0.13 H (0.00-0.04) 10*3/uL Neutrophils # 12.80 H (1.80-7.70) 10*3/uL Lymphocytes # 1.28 (0.90-5.00) 10*3/uL Monocytes # 1.07 H (0.20-1.00) 10*3/uL Eosinophils # 0.14 (0.04-0.35) 10*3/uL Basophils # 0.05 (0.00-0.10) 10*3/uL Differential Comment P Manual Slide Review Performed Anisocytosis (manual) Present Retic Count (0.10-1.80) % PT 18.4 H (10.0-12.5) sec INR 1.8 H (<1.2) APTT 29.6 (22.0-30.0) sec D-Dimer 1.59 H (<0.60) mg/L FEU Sodium 135 L (137-145) mmol/L Potassium 4.6 (3.5-5.1) mmol/L Chloride 103 (98-107) mmol/L Carbon Dioxide 19 L (22-30) mmol/L Anion Gap 13 mmol/L BUN 19 H (7-17) mg/dL Creatinine 0.93 (0.52-1.04) mg/dL Est GFR (CKD-EPI)AfAm 65 (>60 ml/min/1.73 sqM) Est GFR (CKD-EPI)NonAf 57 (>60 ml/min/1.73 sqM) Glucose 121 H (74-99) mg/dL Plasma Lactic Acid Trevor (0.7-2.0) mmol/L Calcium 9.6 (8.4-10.2) mg/dL Magnesium 2.0 (1.6-2.3) mg/dL Total Bilirubin 7.8 H (0.2-1.3) mg/dL AST 32 (14-36) U/L ALT 23 (4-34) U/L Alkaline Phosphatase 91 (38-126) U/L Troponin I (0.000-0.034) ng/mL NT-Pro-B Natriuret Pep 8970 pg/mL Total Protein 6.2 L (6.3-8.2) g/dL Albumin 4.4 (3.5-5.0) g/dL TSH (0.465-4.680) mIU/L Blood Type Blood Type Recheck Bld Type Recheck Status Antibody Screen Antibody Identification CARLA, IgG Interpret CARLA, Poly Interpret Crossmatch Blood Bank Comment Reference Lab Result Spec Expiration Date 03/30/25 03/30/25 03/30/25 Range/Units 17:00 17:00 17:00 WBC (4.50-10.00) 10*3/uL RBC (4.10-5.20) 10*6/uL Hgb (12.0-15.0) g/dL Hct (37.2-46.3) % MCV (80.0-97.0) fL MCH (27.0-32.0) pg MCHC (32.0-37.0) g/dL Plt Count (140-440) 10*3/uL MPV (9.5-12.2) fL Immature Gran % (Auto) % Neutrophils % % Lymphocytes % % Monocytes % % Eosinophils % % Basophils % % Immature Gran # (0.00-0.04) 10*3/uL Neutrophils # (1.80-7.70) 10*3/uL Lymphocytes # (0.90-5.00) 10*3/uL Monocytes # (0.20-1.00) 10*3/uL Eosinophils # (0.04-0.35) 10*3/uL Basophils # (0.00-0.10) 10*3/uL Differential Comment Manual Slide Review Anisocytosis (manual) Retic Count 17.17 H (0.10-1.80) % PT (10.0-12.5) sec INR (<1.2) APTT (22.0-30.0) sec D-Dimer (<0.60) mg/L FEU Sodium (137-145) mmol/L Potassium (3.5-5.1) mmol/L Chloride (98-107) mmol/L Carbon Dioxide (22-30) mmol/L Anion Gap mmol/L BUN (7-17) mg/dL Creatinine (0.52-1.04) mg/dL Est GFR (CKD-EPI)AfAm (>60 ml/min/1.73 sqM) Est GFR (CKD-EPI)NonAf (>60 ml/min/1.73 sqM) Glucose (74-99) mg/dL Plasma Lactic Acid Trevor 1.3 (0.7-2.0) mmol/L Calcium (8.4-10.2) mg/dL Magnesium (1.6-2.3) mg/dL Total Bilirubin (0.2-1.3) mg/dL AST (14-36) U/L ALT (4-34) U/L Alkaline Phosphatase (38-126) U/L Troponin I 0.166 H* (0.000-0.034) ng/mL NT-Pro-B Natriuret Pep pg/mL Total Protein (6.3-8.2) g/dL Albumin (3.5-5.0) g/dL TSH (0.465-4.680) mIU/L Blood Type Blood Type Recheck Bld Type Recheck Status Antibody Screen Antibody Identification CARLA, IgG Interpret CARLA, Poly Interpret Crossmatch Blood Bank Comment Reference Lab Result Spec Expiration Date 03/30/25 03/30/25 Range/Units 19:00 19:22 WBC (4.50-10.00) 10*3/uL RBC (4.10-5.20) 10*6/uL Hgb (12.0-15.0) g/dL Hct (37.2-46.3) % MCV (80.0-97.0) fL MCH (27.0-32.0) pg MCHC (32.0-37.0) g/dL Plt Count (140-440) 10*3/uL MPV (9.5-12.2) fL Immature Gran % (Auto) % Neutrophils % % Lymphocytes % % Monocytes % % Eosinophils % % Basophils % % Immature Gran # (0.00-0.04) 10*3/uL Neutrophils # (1.80-7.70) 10*3/uL Lymphocytes # (0.90-5.00) 10*3/uL Monocytes # (0.20-1.00) 10*3/uL Eosinophils # (0.04-0.35) 10*3/uL Basophils # (0.00-0.10) 10*3/uL Differential Comment Manual Slide Review Anisocytosis (manual) Retic Count (0.10-1.80) % PT (10.0-12.5) sec INR (<1.2) APTT (22.0-30.0) sec D-Dimer (<0.60) mg/L FEU Sodium (137-145) mmol/L Potassium (3.5-5.1) mmol/L Chloride (98-107) mmol/L Carbon Dioxide (22-30) mmol/L Anion Gap mmol/L BUN (7-17) mg/dL Creatinine (0.52-1.04) mg/dL Est GFR (CKD-EPI)AfAm (>60 ml/min/1.73 sqM) Est GFR (CKD-EPI)NonAf (>60 ml/min/1.73 sqM) Glucose (74-99) mg/dL Plasma Lactic Acid Trevor (0.7-2.0) mmol/L Calcium (8.4-10.2) mg/dL Magnesium (1.6-2.3) mg/dL Total Bilirubin (0.2-1.3) mg/dL AST (14-36) U/L ALT (4-34) U/L Alkaline Phosphatase (38-126) U/L Troponin I (0.000-0.034) ng/mL NT-Pro-B Natriuret Pep pg/mL Total Protein (6.3-8.2) g/dL Albumin (3.5-5.0) g/dL TSH 2.210 (0.465-4.680) mIU/L Blood Type O Positive Blood Type Recheck O Pos Bld Type Recheck Status No Antibody Screen POSITIVE Antibody Identification Cold Antibody CARLA, IgG Interpret Cancelled CARLA, Poly Interpret Cancelled Crossmatch See Detail Blood Bank Comment Sent to [facility] A Reference Lab Result See BBK REF Reports A Spec Expiration Date 04/02/20252321 - EKG Data -: EKG Interpreted by Me (EKG sinus tachycardia 109 AL 166 QRS 88 QTc 387) - Radiology Data Radiology results: report reviewed (Chest x-ray CTA chest positive CHF), image reviewed Critical Care Time Critical Care Time: Yes Total Critical Care Time: 31 Disposition Clinical Impression: Asthma with acute exacerbation, Acute pulmonary edema, Congestive heart failure, Asthma with status asthmaticus, Anemia, Tachycardia Disposition: ADMITTED IP TO THIS [facility] Condition: Serious Is patient prescribed a controlled substance at d/c from ED?: No Time of Disposition: 19:00
[2025-03-30] MEDS: SODIUM CHLORIDE 0.9% 1,000 ML IV SCH (17:02)
[2025-03-30 17:35] LABS: INR 1.8 (<1.2); Partial Thromboplastin Time 29.6 sec (22.0-30.0); Prothrombin Time 18.4 sec (10.0-12.5)
[2025-03-30 17:38] LABS: ALT 23 U/L (4-34); AST 32 U/L (14-36); African American GFR (CKD) 65 (>60 ml/min/1.73 sqM); Albumin 4.4 g/dL (3.5-5.0); Alkaline Phosphatase 91 U/L (38-126); Anion Gap 13 mmol/L; Blood Urea Nitrogen 19 mg/dL (7-17); Calcium 9.6 mg/dL (8.4-10.2); Carbon Dioxide 19 mmol/L (22-30); Chloride 103 mmol/L (98-107); Glucose 121 mg/dL (74-99); Magnesium 2.0 mg/dL (1.6-2.3); Non-African American GFR(CKD) 57 (>60 ml/min/1.73 sqM); Potassium 4.6 mmol/L (3.5-5.1); Sodium 135 mmol/L (137-145); Total Protein 6.2 g/dL (6.3-8.2)
[2025-03-30 17:39] LABS: Basophils # (A) 0.05 10*3/uL (0.00-0.10); Basophils % (A) 0.3 %; Eosinophils # (A) 0.14 10*3/uL (0.04-0.35); Eosinophils % (A) 0.9 %; Lymphocytes # (A) 1.28 10*3/uL (0.90-5.00); Lymphocytes % (A) 8.3 %; MCV 128.0 fL (80.0-97.0); Monocytes # (A) 1.07 10*3/uL (0.20-1.00); Monocytes % (A) 6.9 %; Neutrophils # (A) 12.80 10*3/uL (1.80-7.70); Neutrophils % (A) 82.8 %; Platelet Count 263 10*3/uL (140-440); RBC 1.32 10*6/uL (4.10-5.20); RDW 23.4 % (11.5-14.5); WBC 15.47 10*3/uL (4.50-10.00)
[2025-03-30 17:41] LABS: MCH 49.2 pg (27.0-32.0); MCHC 38.5 g/dL (32.0-37.0)
--- NOTE | 2025-03-30 17:41 | XR ---
EXAMINATION TYPE: XR chest 2V DATE OF EXAM: 03/30/2025 5:32 PM COMPARISON: Chest radiographs from 07/03/2021 CLINICAL INDICATION: Female, 84 years old with history of difficulty breathing; TECHNIQUE: XR chest 2V Frontal and lateral views of the chest. FINDINGS: Lungs/Pleura: There is no evidence of pleural effusion, focal consolidation, or pneumothorax. Pulmonary vascularity: Unremarkable. Heart/mediastinum: Cardiomediastinal silhouette is enlarged. Post aortic valve repair changes. Musculoskeletal: No acute osseous pathology. IMPRESSION: Cardiomegaly, pulmonary vascular congestion and bilateral pleural effusions. Correlate with BNP for c ongestive heart failure. [facility], , 03/30/2025 5:39 PM
[2025-03-30 17:44] LABS: HCT 16.9 % (37.2-46.3); HGB 6.5 g/dL (12.0-15.0)
[2025-03-30 17:47] LABS: NT-Pro-B-Type Natriuretic Pept 8970 pg/mL
[2025-03-30] MEDS: IPRATROPIUM-ALBUTEROL 3 ML NEB INHALATION STA ×2 (18:01→20:06)
[2025-03-30 18:09] LABS: Anisocytosis (M) Present
[2025-03-30] MEDS ORDERED: HEPARIN SODIUM 1,000 UN/ML (10ML VL) IV PRN (18:17)
[2025-03-30] MEDS ORDERED: HEPARIN SOD,PORK IN 0.45% NACL 25,000 UNIT in 0.45% NACL 1 250ML.BAG IV SCH (18:30)
--- NOTE | 2025-03-30 19:13 | CT ---
EXAMINATION TYPE: CT angio chest DATE OF EXAM: 03/30/2025 6:52 PM COMPARISON: Chest radiograph from same day. CT 03/23/2024 CLINICAL INDICATION: Female, 84 years old with history of pe; sob and edema TECHNIQUE/CONTRAST: CTA scan of the thorax is performed with IV Contrast, patient injected with 100 ml mL of Isovue 370, MIP images are created and reviewed these are created on a separate workstation.. CT DLP: 314.7 mGycm, Automated exposure control for dose reduction was used. FINDINGS: Lungs/Pleura: Trace bilateral pleural effusion. Mild intralobular septal thickening. No evidence of f ocal consolidation or pneumothorax. Airway: Large airways are patent. Heart: Cardiomegaly is demonstrated. No significant coronary artery calcifications. Thickening and c alcification of aortic valve present. Vasculature: There is no evidence for a filling defect within the pulmonary vasculature to suggest ac chilkat pulmonary embolism. The pulmonary artery is of normal size. Mediastinum: No gross evidence of adenopathy. Musculoskeletal: No acute osseous abnormalities Soft Tissues/lymph nodes: Unremarkable. Lower neck: No significant findings. Upper Abdomen: Remote injury to the liver is suggested with callus medications. The gallbladder surgi amelia absent. IMPRESSION: 1. Interval resolution of reticular opacities seen on 03/23/2024. No evidence of pulmonary embolism. 2. Cardiomegaly with pulmonary vascular congestion and trace bilateral pleural effusions correlate wi th serum BNP for congestive heart failure. Follow up recommendations for incidental pulmonary nodules, if there are any, are per [employer] or [employer]. [email or web address]://radiopaedia.org/articles/rvevubwqhs-[email or web address]?lang=us [facility], , 03/30/2025 7:10 PM
[2025-03-30] MEDS: FUROSEMIDE 10 MG/ML 4 ML VIAL IV STA (19:16)
[2025-03-30] MEDS: HEPARIN SODIUM 1,000 UN/ML (10ML VL) IV ONE (19:19)
[2025-03-30] MEDS ORDERED: MORPHINE SULFATE 4 MG/ML SYRINGE IV PRN (19:41)
[2025-03-30] MEDS ORDERED: NALOXONE 0.4 MG/ML 1 ML VIAL IV PRN (19:41)
[2025-03-30] MEDS ORDERED: ONDANSETRON 4 MG/2 ML VIAL IVP PRN (19:41)
[2025-03-30] MEDS: ATORVASTATIN 40 MG TAB PO SCH (20:24)
[2025-03-31] MEDS: LEVOTHYROXINE 50 MCG TAB PO SCH (06:32)
[2025-03-31 06:40] LABS: Basophils # (A) 0.02 10*3/uL (0.00-0.10); Basophils % (A) 0.2 %; Eosinophils # (A) 0.05 10*3/uL (0.04-0.35); Eosinophils % (A) 0.5 %; Lymphocytes # (A) 0.81 10*3/uL (0.90-5.00); Lymphocytes % (A) 8.5 %; MCH 41.7 pg (27.0-32.0); MCHC 32.7 g/dL (32.0-37.0); MCV 127.5 fL (80.0-97.0); Monocytes # (A) 0.74 10*3/uL (0.20-1.00); Monocytes % (A) 7.8 %; Neutrophils # (A) 7.83 10*3/uL (1.80-7.70); Neutrophils % (A) 82.3 %; Platelet Count 196 10*3/uL (140-440); RBC 1.20 10*6/uL (4.10-5.20); RDW 19.9 % (11.5-14.5); WBC 9.52 10*3/uL (4.50-10.00)
[2025-03-31 06:43] LABS: ALT 25 U/L (4-34); AST 32 U/L (14-36); African American GFR (CKD) 64 (>60 ml/min/1.73 sqM); Albumin 3.6 g/dL (3.5-5.0); Alkaline Phosphatase 70 U/L (38-126); Anion Gap 8 mmol/L; Blood Urea Nitrogen 20 mg/dL (7-17); Calcium 8.9 mg/dL (8.4-10.2); Carbon Dioxide 25 mmol/L (22-30); Chloride 100 mmol/L (98-107); Glucose 115 mg/dL (74-99); Magnesium 2.0 mg/dL (1.6-2.3); Non-African American GFR(CKD) 55 (>60 ml/min/1.73 sqM); Potassium 4.1 mmol/L (3.5-5.1); Sodium 133 mmol/L (137-145); Total Protein 5.3 g/dL (6.3-8.2)
[2025-03-31 06:47] LABS: HCT 15.3 % (37.2-46.3); HGB 5.0 g/dL (12.0-15.0)
[2025-03-31 08:15] LABS: ALT 25 U/L (4-34); AST 32 U/L (14-36); African American GFR (CKD) 64 (>60 ml/min/1.73 sqM); Albumin 3.7 g/dL (3.5-5.0); Alkaline Phosphatase 71 U/L (38-126); Anion Gap 9 mmol/L; Blood Urea Nitrogen 19 mg/dL (7-17); Calcium 9.0 mg/dL (8.4-10.2); Carbon Dioxide 23 mmol/L (22-30); Chloride 102 mmol/L (98-107); Glucose 111 mg/dL (74-99); LDH 331 U/L (120-246); Non-African American GFR(CKD) 56 (>60 ml/min/1.73 sqM); Potassium 4.0 mmol/L (3.5-5.1); Sodium 134 mmol/L (137-145); Total Protein 5.3 g/dL (6.3-8.2)
[2025-03-31] MEDS: PANTOPRAZOLE 40 MG/10 ML VIAL IV SCH (08:46)
[2025-03-31] MEDS: FUROSEMIDE 10 MG/ML 4 ML VIAL IV SCH (08:49)
[2025-03-31 08:50] LABS: Anisocytosis (M) Present; Poikilocytosis (M) Present
[2025-03-31] MEDS: POTASSIUM CHLORIDE ER 10 MEQ TAB.ER.PRT PO PRN (08:50)
[2025-03-31] MEDS: MULTIVITAMINS, THERA 1 EACH TAB PO SCH (08:50)
[2025-03-31] MEDS: BRIMONIDINE TARTRATE 0.2% DROPS 5 ML BTL BOTH EYES SCH (09:37)
[2025-03-31 10:43] LABS: Bilirubin,Urine Negative (Negative); Blood,Urine Negative (Negative); Color,Urine Colorless; Glucose,Urine (UA) Negative (Negative); Ketones,Urine Negative (Negative); Leukocyte Esterase,Urine Negative (Negative); Nitrite,Urine Negative (Negative); PH, Urine 5.5 (5.0-8.0); Protein,Urine Negative (Negative); Specific Gravity,Urine 1.013 (1.001-1.035); Urobilinogen,Urine <2.0 mg/dL (<2.0)
--- NOTE | 2025-03-31 12:49 | CA ---
Transthoracic Echo Report Name: Lynda Flores Age: 84 Gender: F : 1940 Exam Date: 03/31/2025 07:58 Exam Location: [facility] Ht (in): 62 Wt (lb): 167 Ordering Physician: Evelina Tinoco MD ([id number]) Attending/Referring Phys: Ms Sql Developer No Donato RDCS Procedure CPT: Indications: tavr, Shortness of breath Cardiac Hx: TAVR Technical Quality: Good Contrast 1: Total Dose (mL): Contrast 2: Total Dose (mL): MEASUREMENTS (Male / Female) Normal Values 2D ECHO LV Diastolic Diameter PLAX 5.3 cm 4.2 - 5.9 / 3.9 - 5.3 cm LV Systolic Diameter PLAX 3.4 cm IVS Diastolic Thickness 1.1 cm 0.6 - 1.0 / 0.6 - 0.9 cm LVPW Diastolic Thickness 0.8 cm 0.6 - 1.0 / 0.6 - 0.9 cm LV Relative Wall Thickness 0.4 RV Internal Dim ED PLAX 2.6 cm LVOT Diameter 1.7 cm LA Systolic Diameter LX 3.1 cm 3.0 - 4.0 / 2.7 - 3.8 cm LV Diastolic Volume MOD BP 112.0 cm??? 67 - 155 / 56 - 104 cm??? LV Systolic Volume MOD BP 69.3 cm??? 22 - 58 / 19 - 49 cm??? LV Ejection Fraction MOD BP 38.1 % >= 55 % LV Cardiac Index MOD BP 2265.6 cm???/min???m??? LV Diastolic Volume MOD 4C 81.4 cm??? LV Systolic Volume MOD 4C 43.0 cm??? LV Ejection Fraction MOD 4C 47.2 % LV Cardiac Index MOD 4C 2036.4 cm???/min???m??? LV Diastolic Length 4C 6.5 cm LV Systolic Length 4C 5.6 cm LV Diastolic Volume MOD 2C 98.5 cm??? LV Systolic Volume MOD 2C 59.8 cm??? LV Ejection Fraction MOD 2C 39.3 % LV Cardiac Index MOD 2C 2054.5 cm???/min???m??? LV Diastolic Length 2C 7.0 cm LV Systolic Length 2C 6.7 cm M-MODE Aortic Root Diameter MM 2.2 cm DOPPLER AV Peak Velocity 417.6 cm/s AV Peak Gradient 69.7 mmHg AV Mean Velocity 297.0 cm/s AV Mean Gradient 39.4 mmHg AV Velocity Time Integral 97.0 cm AI Peak Velocity 395.6 cm/s AI Peak Gradient 62.6 mmHg AI Pressure Half Time 404.3 ms LVOT Peak Velocity 87.6 cm/s LVOT Peak Gradient 3.1 mmHg LVOT Velocity Time Integral 21.7 cm LVOT Stroke Volume 50.8 cm??? LVOT Stroke Volume Index 28.7 ml/m??? LVOT Cardiac Index 2692.1 cm???/min???m??? AV Area Cont Eq vti 0.5 cm??? AV Area Cont Eq pk 0.5 cm??? MV Peak Velocity 208.7 cm/s MV Peak Gradient 17.4 mmHg MV Mean Velocity 102.9 cm/s MV Mean Gradient 5.4 mmHg MV Velocity Time Integral 43.1 cm MR Peak Velocity 475.2 cm/s MR Peak Gradient 90.3 mmHg Mitral E Point Velocity 183.5 cm/s Mitral A Point Velocity 136.0 cm/s Mitral E to A Ratio 1.3 MV Deceleration Time 199.2 ms TR Peak Velocity 333.4 cm/s TR Peak Gradient 44.5 mmHg Right Ventricular Systolic Press 54.7 mmHg FINDINGS Left Ventricle Left ventricular ejection fraction is estimated at 45-50 %. Left ventricular cavity size normal. Mildly increased septal wall thickness. Mildly increased left ventricular diastolic volume. Moderately increased left ventricular systolic volume. Right Ventricle Normal right ventricular size. Severe pulmonary hypertension. Right ventricular systolic pressure estimated at 55 mm hg. Right Atrium Normal right atrial size. No right atrial thrombus or mass seen. Left Atrium Severly increase LA valume. Elevated LA filling pressures. Mitral Valve Degenerative mitral valve changes, calcified and restricted posterior mitral leaflet. Moderate mitral annular calcification. Moderate regurgitation,, mild stenosis. Aortic Valve Bioprosthetic aortic valve. Thickened leaflets, mean gradient 45 mmHg. Acceleration time 120 msec, moderate stenosis, exacerbated by the high flow state. No significant regurgitation noticed. No significant PVL noticed Tricuspid Valve Structurally normal tricuspid valve. [id number] tricuspid regurgitation. Pulmonic Valve Structurally normal pulmonic valve. Mild pulmonic regurgitation. Pericardium No pericardial effusion. Aorta Aortic annulus normal. CONCLUSIONS LVEF 45 to 50% Mild concentric LVH Mildly reduced global LV systolic function. No obvious regional wall motion abnormality Severe LA dilatation with elevated LA filling pressures Severe degeneration of the mitral valve with restricted posterior mitral leaflet. Moderate regurgitation, mild stenosis Bioprosthetic aortic valve with mild to moderate stenosis, likely exacerbated by high outflow state Moderate tricuspid regurgitation with severe pulmonary hypertension RVSP estimated at 55 mmHg No pericardial effusion Previewed by: Dr José Miguel Fonseca (Electronically Signed) Final Date: 31 March 2025 12:48
[2025-03-31] MEDS: predniSONE 20 MG TAB PO SCH (13:04)
[2025-03-31] MEDS: ACETAMINOPHEN TAB 325 MG TAB PO PRN (14:47)
--- NOTE | 2025-03-31 15:45 | P.HPIM ---
History of Present Illness Chief Complaint: Shortness of breath, palpitations History of present illness; 84 year old female with significant pmhx of bronchia l asthma, Aortic Stenosis, sp TAVR, CAD requiring stents, B cell lymphoma, Anti- phosopholipid antibody syndrome. She says that she was being managed with oral prednisone for an asthma exacerbation aprox a month ago, since then she has been experiencing shortness of breath and palpitations, she had an appointment with Dr. Tinoco outpatient and he advised her to report directly to the ER. She denies fever, chills, dizziness, chest pain, dark stool, blood in stool, active bleeding, In the ER she got a Chest Xray and CT PE. Both revealed mild pulmonary edema w/o evidence of PE. EKG done showed heart rate of 110 (sinus tachy) CBC showed Hbg of 6.5 and 5.0 on subsequent test. WBC: 9.52, Plt: 196, Reticulocyte count 20.5. Na: 134 K:4 BUN:19 Cr:0.94 Glu: 115-> 111 Bilirubin: 6.8 Trop: 0.166->.219 -> .0392 -> LDH: 331 Ocult Blood: Neg Haptoglobin: 67.6 REVIEW OF SYSTEMS: As stated above in HPI. The rest of the 14-point review of systems is negative. PHYSICAL EXAMINATION: GENERAL: The patient is alert and oriented x3, not in any acute distress. Well developed, well nourished. HEENT: Pupils are round and equally reacting to light. EOMI. Scleral Icterus Present CARDIOVASCULAR: S1 and S2 present. No murmurs, rubs, or gallops. PULMONARY: Chest is clear to auscultation b/l, no wheezing or crackles. ABDOMEN: Soft, nontender, nondistended, normoactive bowel sounds. No palpable organomegaly. MUSCULOSKELETAL: No joint swelling or deformity. EXTREMITIES: No cyanosis, clubbing. Mild edema NEUROLOGICAL: Gross neurological examination did not reveal any focal deficits. 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 #Antiphospholipid Antibody Syndrome # Hyperbilirubinemia #Shortness of Breath -Nasal Canula - Wean to room air -RBC transfusion 2 units - Appreciate recs from heme/onc -Prednisone 80 PO daily -Transfuse if HBG <7 #Acute CHF Exacerbation #Pulmonary Edema # Elevated troponin -Cardiology on board -[facility] 40 IV BID - Strict I&O: Less than 1500 mL -Daily Weigh in -Cont home med Chronic Conditions: #Asthma -Duonebs #Hypertension #Dyslipidemia #CAD #SP TAVR -Continue home meds #Antiphosphospholipid antibody syndrome #B Cell Lymphoma -IV heparin - Heme/onc on board DVT ppx: IV Heparin GI ppx: Protonix Dispo: Pending anemia management and source, and resolution of CHF Neno Abad DO PGY-1 Dictation was produced using [employer] dictation software. please excuse any grammatical, word or spelling errors. Past Medical History Past Medical History: Asthma, Cancer, Hyperlipidemia, Hypertension, Osteoarthritis (OA), Thyroid Disorder Additional Past Medical History / Comment(s): chronic anemia, antiphospholipid antibody syndrome, enlarged spleen,bronchial asthma with upper resp infections.,constipation,low grade B cell lymphoma Aug 2016-chemo summer 2023 osteoporosis. cancer b cell lymphoma History of Any Multi-Drug Resistant Organisms: None Reported Past Surgical History: Adenoidectomy, Cholecystectomy, Orthopedic Surgery, Tonsillectomy Additional Past Surgical History / Comment(s): Left knee arthoscopy x2, D&C, Colonoscopy, EGD, left knee replacement July 2017, TAVR 2021 at [facility]. Past Anesthesia/Blood Transfusion Reactions: Motion Sickness, Postoperative Nausea & Vomiting (PONV) Additional Past Anesthesia/Blood Transfusion Reaction / Comment(s): no hx blood transfusion Smoking Status: Never smoker - Past Family History Father Family Medical History: Cancer, Renal Disease Additional Family Medical History / Comment(s): cancer of spleen. father has history of renal failure. Mother Family Medical History: AFIB Additional Family Medical History / Comment(s): mother has history of atrial fibrillation Sister(s) Additional Family Medical History / Comment(s): sister has history of thyroid problems. Medications and Allergies Home Medications Medication Instructions Recorded Confirmed Type Levothyroxine Sodium [Synthroid] 50 mcg PO DAILY 07/30/16 03/30/25 History Montelukast [Singulair] 10 mg PO HS 07/30/16 03/30/25 History Aspirin EC [Ecotrin Low Dose] 81 mg PO DAILY 03/20/19 03/30/25 History Cetirizine HCl 10 mg PO DAILY 03/20/19 03/30/25 History Cholecalciferol [Vitamin D3 (25 25 mcg PO BID 07/03/21 03/30/25 History Mcg = 1000 Iu)] Latanoprost [Xalatan 0.005%] 1 drop BOTH EYES HS 07/03/21 03/30/25 History Sodium Chloride [Saline Nasal 1 spray EA NOSTRIL HS 08/27/21 03/30/25 History [place]] polyethylene glycoL 3350 [Miralax] 0.33 tsp PO DAILY 08/27/21 03/30/25 History Albuterol Nebulized [Ventolin 2.5 mg INHALATION RT-TID PRN 03/30/25 03/30/25 History Nebulized] Atorvastatin [Lipitor] 40 mg PO HS 03/30/25 03/30/25 History Brimonidine Tartrate [Alphagan P 1 drops BOTH EYES BID 03/30/25 03/30/25 History 0.2% Ophth Soln] Furosemide [Lasix] 20 mg PO DAILY PRN 03/30/25 03/30/25 History Multivitamins, Thera [Multivitamin 1 tab PO DAILY 03/30/25 03/30/25 History (formulary)] Potassium Chloride ER [K-Dur 10] 10 meq PO DAILY PRN 03/30/25 03/30/25 History ramipriL 5 mg PO DAILY 03/30/25 03/30/25 History Allergies Allergy/AdvReac Type Severity Reaction Status Date / Time Penicillins Allergy Rash/Hives Verified 08/27/21 17:53 omeprazole AdvReac Nausea & Verified 08/27/21 17:53 Vomiting & Diarrhea Physical Exam Vitals: Vital Signs Temp Pulse Pulse Resp BP BP Pulse Ox 03/31/25 15:00 100.3 F H 89 18 107/78 03/31/25 14:40 100.2 F H 89 18 103/59 03/31/25 14:30 100.1 F H 98 18 103/60 03/31/25 14:10 100.2 F H 102 H 18 104/63 03/31/25 13:56 98.4 F 96 16 112/68 03/31/25 13:05 98 18 97/53 99 03/31/25 11:25 91 18 94/53 100 03/31/25 09:39 97 18 99/78 98 03/31/25 08:43 18 03/31/25 08:33 116 H 18 112/66 99 03/31/25 07:51 98.2 F 96 18 99/64 99 03/31/25 07:15 93 16 99/53 98 03/31/25 04:00 98 18 94/58 99 03/31/25 00:05 84 18 103/67 100 03/30/25 21:46 94 19 104/65 100 03/30/25 20:14 117 H 18 03/30/25 20:11 115 H 17 152/95 96 03/30/25 20:06 118 H 18 03/30/25 18:15 100 03/30/25 18:01 101 H 03/30/25 16:29 99.6 F 113 H 20 113/70 98 Intake and Output 03/31/25 03/31/25 03/31/25 06:59 14:59 22:59 Intake Total 10 Output Total 1000 Balance -990 Intake: Blood Product 10 Rc As-1 Unit 10 [id number] Output: Urine 1000 Other: Voiding Method Bedside Commode # Voids 3 Results CBC & Chem 7: 03/31/25 05:18 03/31/25 07:33 Labs: Abnormal Lab Results - Last 24 Hours (Table) 03/30/25 03/30/25 03/30/25 Range/Units 17:00 17:00 17:00 WBC 15.47 H (4.50-10.00) 10*3/uL RBC 1.32 L (4.10-5.20) 10*6/uL Hgb 6.5 L* (12.0-15.0) g/dL Hct 16.9 L* (37.2-46.3) % MCV 128.0 H (80.0-97.0) fL MCH 49.2 H (27.0-32.0) pg MCHC 38.5 H (32.0-37.0) g/dL Immature Gran # 0.13 H (0.00-0.04) 10*3/uL Neutrophils # 12.80 H (1.80-7.70) 10*3/uL Lymphocytes # (0.90-5.00) 10*3/uL Monocytes # 1.07 H (0.20-1.00) 10*3/uL Retic Count (0.10-1.80) % PT 18.4 H (10.0-12.5) sec INR 1.8 H (<1.2) D-Dimer 1.59 H (<0.60) mg/L FEU Sodium 135 L (137-145) mmol/L Carbon Dioxide 19 L (22-30) mmol/L BUN 19 H (7-17) mg/dL Glucose 121 H (74-99) mg/dL Total Bilirubin 7.8 H (0.2-1.3) mg/dL Lactate Dehydrogenase (120-246) U/L Troponin I (0.000-0.034) ng/mL Total Protein 6.2 L (6.3-8.2) g/dL Crossmatch Blood Bank Comment Reference Lab Result 03/30/25 03/30/25 03/30/25 Range/Units 17:00 17:00 19:22 WBC (4.50-10.00) 10*3/uL RBC (4.10-5.20) 10*6/uL Hgb (12.0-15.0) g/dL Hct (37.2-46.3) % MCV (80.0-97.0) fL MCH (27.0-32.0) pg MCHC (32.0-37.0) g/dL Immature Gran # (0.00-0.04) 10*3/uL Neutrophils # (1.80-7.70) 10*3/uL Lymphocytes # (0.90-5.00) 10*3/uL Monocytes # (0.20-1.00) 10*3/uL Retic Count 17.17 H (0.10-1.80) % PT (10.0-12.5) sec INR (<1.2) D-Dimer (<0.60) mg/L FEU Sodium (137-145) mmol/L Carbon Dioxide (22-30) mmol/L BUN (7-17) mg/dL Glucose (74-99) mg/dL Total Bilirubin (0.2-1.3) mg/dL Lactate Dehydrogenase (120-246) U/L Troponin I 0.166 H* (0.000-0.034) ng/mL Total Protein (6.3-8.2) g/dL Crossmatch See Detail Blood Bank Comment Sent to [facility] A Reference Lab Result See BBK REF Reports A 03/30/25 03/31/25 03/31/25 Range/Units 21:07 00:01 05:18 WBC (4.50-10.00) 10*3/uL RBC 1.20 L (4.10-5.20) 10*6/uL Hgb 5.0 L* D (12.0-15.0) g/dL Hct 15.3 L* (37.2-46.3) % MCV 127.5 H (80.0-97.0) fL MCH 41.7 H (27.0-32.0) pg MCHC (32.0-37.0) g/dL Immature Gran # 0.07 H (0.00-0.04) 10*3/uL Neutrophils # 7.83 H (1.80-7.70) 10*3/uL Lymphocytes # 0.81 L (0.90-5.00) 10*3/uL Monocytes # (0.20-1.00) 10*3/uL Retic Count (0.10-1.80) % PT (10.0-12.5) sec INR (<1.2) D-Dimer (<0.60) mg/L FEU Sodium (137-145) mmol/L Carbon Dioxide (22-30) mmol/L BUN (7-17) mg/dL Glucose (74-99) mg/dL Total Bilirubin (0.2-1.3) mg/dL Lactate Dehydrogenase (120-246) U/L Troponin I 0.219 H* 0.392 H* (0.000-0.034) ng/mL Total Protein (6.3-8.2) g/dL [facility] Blood [facility] Comment Reference Lab Result 03/31/25 03/31/25 03/31/25 Range/Units 05:18 07:33 07:33 WBC (4.50-10.00) 10*3/uL RBC (4.10-5.20) 10*6/uL Hgb (12.0-15.0) g/dL Hct (37.2-46.3) % MCV (80.0-97.0) fL MCH (27.0-32.0) pg MCHC (32.0-37.0) g/dL Immature Gran # (0.00-0.04) 10*3/uL Neutrophils # (1.80-7.70) 10*3/uL Lymphocytes # (0.90-5.00) 10*3/uL Monocytes # (0.20-1.00) 10*3/uL Retic Count 20.53 H (0.10-1.80) % PT (10.0-12.5) sec INR (<1.2) D-Dimer (<0.60) mg/L FEU Sodium 133 L 134 L (137-145) mmol/L Carbon Dioxide (22-30) mmol/L BUN 20 H 19 H (7-17) mg/dL Glucose 115 H 111 H (74-99) mg/dL Total Bilirubin 7.1 H 6.8 H (0.2-1.3) mg/dL Lactate Dehydrogenase 331 H (120-246) U/L Troponin I (0.000-0.034) ng/mL Total Protein 5.3 L 5.3 L (6.3-8.2) g/dL Crossmatch Blood Bank Comment Reference Lab Result Thrombosis Risk Factor Assmnt - Choose All That Apply Any of the Below Risk Factors Present?: Yes Each Factor Represents 1 point: Abnormal pulmonary function (COPD), Obesity (BMI >25) Other Risk Factors: Yes Each Risk Factor Represents 3 Points: Age 75 years or older Other congenital or acquired thrombophilia - If yes, enter type in comment: No Thrombosis Risk Factor Assessment Total Risk Factor Score: 5 Thrombosis Risk Factor Assessment Level: High Risk
--- NOTE | 2025-03-31 16:13 | P.CRDCN ---
History of Present Illness Consult date: 03/31/25 History of present illness: Patient was seen and examined with the resident at bedside. 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 Consider repeating outpatient echocardiogram once anemia resolves History of ischemic cardiomyopathy Optimize GDMT Close monitoring, poor prognosis Patient is a 84-year-old female with a history of low-grade B-cell lymphoma status post chemotherapy following Dr. Eid, antiphospholipid syndrome not on anticoagulation, severe aortic stenosis status post TAVR and CAD status post 2 stents 3 years ago at [facility], hypertension, hyperlipidemia and asthma was sent to the ER after she was evaluated by her primary set up and lay out inspector Dr. Tinoco at the office. Patient has been endorsing worsening exertional dyspnea with fatigue and lower extremity swelling for more than a month. Patient reports no chest pain, syncope or presyncope. Denies orthopnea and PND. Patient denies abdominal pain, bloody or tarry colored stools, nausea, vomiting, fever or chills. Patient is found to be severely anemic with initial hemoglobin level of 6.5 and subsequently 5.0. Patient denies any active bleeding. 2 units of packed RBC has been ordered. Patient continues to feel short of breath. Her most recent echocardiogram is from 07/12 revealing LVEF of 55 to 60% with severe aortic stenosis. Labs and images: WBC 9.5, globin 5.0, MCV 127.5, reticulocyte count 20.53, haptoglobin 67.6, D- dimer 1.59, sodium 134, potassium 4.0, BUN 19, creatinine 0.94, LDH 331, troponin 0.166, 0.219, 0.392, TSH 2.21, NT proBNP 8970 Chest x-ray shows pulmonary vascular congestion with bilateral pleural effusions Initial EKG shows sinus tachycardia Subsequent EKG sinus rhythm with with nonspecific ST to T wave changes. Echocardiogram shows LVEF of 45 to 50% with severe degeneration of the mitral valve with restricted posterior mitral leaflet. Moderate MR and mild MS. Bioprosthetic aortic valve with mild to moderate stenosis. Moderate tricuspid regurgitation with severe pulmonary hypertension with RVSP estimated at 55 mmHg. Vitals: Temperature 100.8 F, pulse rate 84, respiratory rate 18, blood pressure 107/78, 99% O2 saturation on 2 L nasal cannula Review of systems: Pertinent positives and negatives as discussed in HPI, a complete review of systems was performed and all other systems are negative. Social history: No smoking or drinking alcohol Physical examination: Vital signs reviewed General: non toxic, no distress, appears at stated age Derm: Patient is appearing pale Head: atraumatic, normocephalic, symmetric Eyes: EOMI, no lid lag, anicteric sclera, pupils equal round reactive to light ENT: Nose and ears atraumatic Neck: No cervical lymphadenopathy, trachea midline, supple Mouth: no lip lesion, mucus membranes moist Cardiovascular: S1S2 reg, grade 2 systolic and diastolic murmur, positive dorsalis pedis pulse bilateral, 2+ bilateral lower extremity edema Lungs: CTA bilateral, no rhonchi, no rales, no accessory muscle use Abdominal: soft, nontender to palpation, no guarding Ext: muscle strength 5 out of 5 in all 4 extremities grossly, no gross muscle atrophy, no contractures, Neuro: CN II-XI grossly intact, no gross focal neuro deficits Psych: Alert, oriented, appropriate affect Assessment: #Severe symptomatic macrocytic anemia #Ischemic cardiomyopathy #HFrEF #Acute on chronic CHF #Elevated troponins, type II IL, secondary to severe anemia #Leukopenia #History of CAD status post 2 stents #History of severe aortic stenosis status post TAVR #History of low-grade B-cell lymphoma status postchemotherapy #Antiphospholipid syndrome #Asthma Plan: Resume home cardiac medications Transfusion with packed RBC if hemoglobin less than 7.0 Continue with Lasix 40 mg IV twice daily Monitor I's and O's, daily weights, fluid restriction to 2 L/day Optimize GDMT Surgery and heme-onc on board Dictation was produced using [employer] dictation software. Please excuse any grammatical, word or spelling errors. Past Medical History Past Medical History: Asthma, Cancer, Hyperlipidemia, Hypertension, Osteoarthritis (OA), Thyroid Disorder Additional Past Medical History / Comment(s): chronic anemia, antiphospholipid antibody syndrome, enlarged spleen,bronchial asthma with upper resp infect ions.,constipation,low grade B cell lymphoma Aug 2016-chemo summer 2023 osteoporosis. cancer b cell lymphoma History of Any Multi-Drug Resistant Organisms: None Reported Past Surgical History: Adenoidectomy, Cholecystectomy, Orthopedic Surgery, Tonsi llectomy Additional Past Surgical History / Comment(s): Left knee arthoscopy x2, D&C, Colonoscopy, EGD, left knee replacement July 2017, TAVR 2021 [facility]. Past Anesthesia/Blood Transfusion Reactions: Motion Sickness, Postoperative Nausea & Vomiting (PONV) Additional Past Anesthesia/Blood Transfusion Reaction / Comment(s): no hx blood transfusion Smoking Status: Never smoker - Past Family History Father Family Medical History: Cancer, Renal Disease Additional Family Medical History / Comment(s): cancer of spleen. father has history of renal failure. Mother Family Medical History: AFIB Additional Family Medical History / Comment(s): mother has history of atrial fibrillation Sister(s) Additional Family Medical History / Comment(s): sister has history of thyroid problems. Medications and Allergies Home Medications Medication Instructions Recorded Confirmed Type Levothyroxine Sodium [Synthroid] 50 mcg PO DAILY 07/30/16 03/30/25 History Montelukast [Singulair] 10 mg PO HS 07/30/16 03/30/25 History Aspirin EC [Ecotrin Low Dose] 81 mg PO DAILY 03/20/19 03/30/25 History Cetirizine HCl 10 mg PO DAILY 03/20/19 03/30/25 History Cholecalciferol [Vitamin D3 (25 25 mcg PO BID 07/03/21 03/30/25 History Mcg = 1000 Iu)] Latanoprost [Xalatan 0.005%] 1 drop BOTH EYES HS 07/03/21 03/30/25 History Sodium Chloride [Saline Nasal 1 spray EA NOSTRIL HS 08/27/21 03/30/25 History [place]] polyethylene glycoL 3350 [Miralax] 0.33 tsp PO DAILY 08/27/21 03/30/25 History Albuterol Nebulized [Ventolin 2.5 mg INHALATION RT-TID PRN 03/30/25 03/30/25 History Nebulized] Atorvastatin [Lipitor] 40 mg PO HS 03/30/25 03/30/25 History Brimonidine Tartrate [Alphagan P 1 drops BOTH EYES BID 03/30/25 03/30/25 History 0.2% Ophth Soln] Furosemide [Lasix] 20 mg PO DAILY PRN 03/30/25 03/30/25 History Multivitamins, Thera [Multivitamin 1 tab PO DAILY 03/30/25 03/30/25 History (formulary)] Potassium Chloride ER [K-Dur 10] 10 meq PO DAILY PRN 03/30/25 03/30/25 History ramipriL 5 mg PO DAILY 03/30/25 03/30/25 History Allergies Allergy/AdvReac Type Severity Reaction Status Date / Time Penicillins Allergy Rash/Hives Verified 08/27/21 17:53 omeprazole AdvReac Nausea & Verified 08/27/21 17:53 Vomiting & Diarrhea Physical Exam Vitals: Vital Signs Temp Pulse Pulse Resp BP BP Pulse Ox 03/31/25 15:35 100.8 F H 84 18 107/78 99 03/31/25 15:00 100.3 F H 89 18 107/78 03/31/25 14:40 100.2 F H 89 18 103/59 03/31/25 14:30 100.1 F H 98 18 103/60 03/31/25 14:10 100.2 F H 102 H 18 104/63 03/31/25 13:56 98.4 F 96 16 112/68 03/31/25 13:05 98 18 97/53 99 03/31/25 11:25 91 18 94/53 100 03/31/25 09:39 97 18 99/78 98 03/31/25 08:43 18 03/31/25 08:33 116 H 18 112/66 99 03/31/25 07:51 98.2 F 96 18 99/64 99 03/31/25 07:15 93 16 99/53 98 03/31/25 04:00 98 18 94/58 99 03/31/25 00:05 84 18 103/67 100 03/30/25 21:46 94 19 104/65 100 03/30/25 20:14 117 H 18 03/30/25 20:11 115 H 17 152/95 96 03/30/25 20:06 118 H 18 03/30/25 18:15 100 03/30/25 18:01 101 H 03/30/25 16:29 99.6 F 113 H 20 113/70 98 Intake and Output 03/31/25 03/31/25 03/31/25 06:59 14:59 22:59 Intake Total 10 Output Total 1000 Balance -990 Intake: Blood Product 10 Rc As-1 Unit 10 [id number] Output: Urine 1000 Other: Voiding Method Bedside Commode # Voids 3 Results 03/31/25 21:47 03/31/25 07:33 Cardiac Enzymes 03/30/25 03/30/25 03/30/25 Range/Units 17:00 17:00 21:07 AST 32 (14-36) U/L Lactate Dehydrogenase (120-246) U/L Troponin I 0.166 H* 0.219 H* (0.000-0.034) ng/mL 03/31/25 03/31/25 03/31/25 Range/Units 00:01 05:18 07:33 AST 32 32 (14-36) U/L Lactate Dehydrogenase 331 H (120-246) U/L Troponin I 0.392 H* (0.000-0.034) ng/mL Coagulation 03/30/25 Range/Units 17:00 PT 18.4 H (10.0-12.5) sec APTT 29.6 (22.0-30.0) sec CBC 03/30/25 03/31/25 Range/Units 17:00 05:18 WBC 15.47 H 9.52 (4.50-10.00) 10*3/uL RBC 1.32 L 1.20 L (4.10-5.20) 10*6/uL Hgb 6.5 L* 5.0 L* D (12.0-15.0) g/dL Hct 16.9 L* 15.3 L* (37.2-46.3) % Plt Count 263 196 (140-440) 10*3/uL Comprehensive Metabolic Panel 03/30/25 03/31/25 03/31/25 Range/Units 17:00 05:18 07:33 Sodium 135 L 133 L 134 L (137-145) mmol/L Potassium 4.6 4.1 4.0 (3.5-5.1) mmol/L Chloride 103 100 102 (98-107) mmol/L Carbon Dioxide 19 L 25 23 (22-30) mmol/L BUN 19 H 20 H 19 H (7-17) mg/dL Creatinine 0.93 0.95 0.94 (0.52-1.04) mg/dL Glucose 121 H 115 H 111 H (74-99) mg/dL Calcium 9.6 8.9 9.0 (8.4-10.2) mg/dL AST 32 32 32 (14-36) U/L ALT 23 25 25 (4-34) U/L Alkaline Phosphatase 91 70 71 (38-126) U/L Total Protein 6.2 L 5.3 L 5.3 L (6.3-8.2) g/dL Albumin 4.4 3.6 3.7 (3.5-5.0) g/dL Current Medications Generic Name Dose Route Start Last Admin Trade Name Freq PRN Reason Stop Dose Admin Acetaminophen 650 mg 03/31/25 14:43 03/31/25 14:47 Acetaminophen Tab 325 Mg Tab PO 650 mg Q6HR PRN Administration Fever and/ or Pain Albuterol/Ipratropium 3 ml 03/30/25 19:42 Ipratropium-Albuterol 3 Ml Neb INHALATION RT-QID PRN Shortness Of Breath Or Wheezing Atorvastatin Calcium 40 mg 03/30/25 21:00 03/30/25 20:24 Atorvastatin 40 Mg Tab PO 40 mg HS CARINA Administration Brimonidine Tartrate 1 drops 03/31/25 09:45 03/31/25 09:37 Brimonidine Tartrate 0.2% Drops 5 Ml Btl BOTH EYES 1 drops BID CARINA Administration Furosemide 40 mg 03/31/25 09:00 03/31/25 08:49 Furosemide 10 Mg/Ml 4 Ml Vial IV 40 mg BID CARINA Administration Latanoprost 1 drops 03/31/25 21:00 Latanoprost 0.005% Ophth Drops 2.5 Ml Btl BOTH EYES HS CARINA Levothyroxine Sodium 50 mcg 03/31/25 06:30 03/31/25 06:32 Levothyroxine 50 Mcg Tab PO 50 mcg DAILY@0630 CARINA Administration Lisinopril 5 mg 03/31/25 09:00 03/31/25 08:57 Lisinopril 5 Mg Tab PO Not Given DAILY CARINA Montelukast Sodium 10 mg 03/31/25 21:00 Montelukast 10 Mg Tab PO HS CARINA Morphine Sulfate 4 mg 03/30/25 19:41 Morphine Sulfate 4 Mg/Ml Syringe IV Q4HR PRN Severe Pain (Scale 7 to 10) Multivitamins 1 each 03/31/25 09:00 03/31/25 08:50 Multivitamins, Thera 1 Each Tab PO 1 each DAILY CARINA Administration Naloxone HCl 0.2 mg 03/30/25 19:41 Naloxone 0.4 Mg/Ml 1 Ml Vial IV Q2M PRN Opioid Reversal Ondansetron HCl 4 mg 03/30/25 19:41 Ondansetron 4 Mg/2 Ml Vial IVP Q8HR PRN Nausea And Vomiting Pantoprazole Sodium 40 mg 03/31/25 09:00 03/31/25 08:46 Pantoprazole 40 Mg/10 Ml Vial IV 40 mg DAILY CARINA Administration Polyethylene Glycol 1.7 gm 03/31/25 09:00 03/31/25 08:50 Polyethylene Glycol 3350 17 Gm Powd.Pack PO 1.7 gm DAILY CARINA Administration Potassium Chloride 10 meq 03/30/25 18:23 03/31/25 08:50 Potassium Chloride Er 10 Meq Tab.Er.Prt PO 10 meq DAILY PRN Administration W/LASIX Prednisone 80 mg 03/31/25 12:30 03/31/25 13:04 Prednisone 20 Mg Tab PO 80 mg DAILY CARINA Administration Intake and Output 03/31/25 03/31/25 03/31/25 06:59 14:59 22:59 Intake Total 10 Output Total 1000 Balance -990 Intake: Blood Product 10 Rc As-1 Unit 10 [id number] Output: Urine 1000 Other: Voiding Method Bedside Commode # Voids 3 03/31/25 05:18 03/31/25 07:33
--- NOTE | 2025-03-31 16:32 | P.GSCN ---
History of Present Illness Consult date: 03/31/25 History of present illness: 84-year-old female presented to the emergency department secondary to concern for symptomatic anemia. She has a history of bronchial asthma, aortic stenosis, B-cell lymphoma and antiphospholipid antibody syndrome. She is found to have a hemoglobin of 5. She states overall she has felt weak. She denies any gross blood in her stool. She denies any emesis and denies any hematemesis. She denies any black or tarry stool. She states her last colonoscopy was about 10 years ago and she was told at that time that she did not require further colonoscopies. 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 cancer b cell lymphoma History of Any Multi-Drug Resistant Organisms: None Reported Past Surgical History: Adenoidectomy, Cholecystectomy, Orthopedic Surgery, Tonsillectomy Additional Past Surgical History / Comment(s): Left knee arthoscopy x2, D&C, Colonoscopy, EGD, left knee replacement July 2017, TAVR 2021 at [facility]. Past Anesthesia/Blood Transfusion Reactions: Motion Sickness, Postoperative Nausea & Vomiting (PONV) Additional Past Anesthesia/Blood Transfusion Reaction / Comm: no hx blood transfusion Smoking Status: Never smoker - Past Family History Father Family Medical History: Cancer, Renal Disease Additional Family Medical History / Comment(s): cancer of spleen. father has history of renal failure. Mother Family Medical History: AFIB Additional Family Medical History / Comment(s): mother has history of atrial fibrillation Sister(s) Additional Family Medical History / Comment(s): sister has history of thyroid problems. Medications and Allergies Home Medications Medication Instructions Recorded Confirmed Type Levothyroxine Sodium [Synthroid] 50 mcg PO DAILY 07/30/16 03/30/25 History Montelukast [Singulair] 10 mg PO HS 07/30/16 03/30/25 History Aspirin EC [Ecotrin Low Dose] 81 mg PO DAILY 03/20/19 03/30/25 History Cetirizine HCl 10 mg PO DAILY 03/20/19 03/30/25 History Cholecalciferol [Vitamin D3 (25 25 mcg PO BID 07/03/21 03/30/25 History Mcg = 1000 Iu)] Latanoprost [Xalatan 0.005%] 1 drop BOTH EYES HS 07/03/21 03/30/25 History Sodium Chloride [Saline Nasal 1 spray EA NOSTRIL HS 08/27/21 03/30/25 History [place]] polyethylene glycoL 3350 [Miralax] 0.33 tsp PO DAILY 08/27/21 03/30/25 History Albuterol Nebulized [Ventolin 2.5 mg INHALATION RT-TID PRN 03/30/25 03/30/25 History Nebulized] Atorvastatin [Lipitor] 40 mg PO HS 03/30/25 03/30/25 History Brimonidine Tartrate [Alphagan P 1 drops BOTH EYES BID 03/30/25 03/30/25 History 0.2% Ophth Soln] Furosemide [Lasix] 20 mg PO DAILY PRN 03/30/25 03/30/25 History Multivitamins, Thera [Multivitamin 1 tab PO DAILY 03/30/25 03/30/25 History (formulary)] Potassium Chloride ER [K-Dur 10] 10 meq PO DAILY PRN 03/30/25 03/30/25 History ramipriL 5 mg PO DAILY 03/30/25 03/30/25 History Allergies Allergy/AdvReac Type Severity Reaction Status Date / Time Penicillins Allergy Rash/Hives Verified 08/27/21 17:53 omeprazole AdvReac Nausea & Verified 08/27/21 17:53 Vomiting & Diarrhea Surgical - Exam Osteopathic Statement: *. No significant issues noted on an osteopathic structural exam other than those noted in the History and Physical/Consult. Vital Signs Temp Pulse Resp BP Pulse Ox 99.6 F 113 H 20 113/70 98 03/30/25 16:29 03/30/25 16:29 03/30/25 16:29 03/30/25 16:29 03/30/25 16:29 - General well nourished, no distress - Eyes normal ocular movement - ENT no hearing loss - Neck trachea midline - Respiratory normal respiratory effort - Abdomen Abdomen: soft, non tender Results - Labs 03/31/25 05:18 03/31/25 07:33 Abnormal Lab Results - Last 24 Hours (Table) 03/30/25 03/30/25 03/30/25 Range/Units 17:00 17:00 17:00 WBC 15.47 H (4.50-10.00) 10*3/uL RBC 1.32 L (4.10-5.20) 10*6/uL Hgb 6.5 L* (12.0-15.0) g/dL Hct 16.9 L* (37.2-46.3) % MCV 128.0 H (80.0-97.0) fL MCH 49.2 H (27.0-32.0) pg MCHC 38.5 H (32.0-37.0) g/dL Immature Gran # 0.13 H (0.00-0.04) 10*3/uL Neutrophils # 12.80 H (1.80-7.70) 10*3/uL Lymphocytes # (0.90-5.00) 10*3/uL Monocytes # 1.07 H (0.20-1.00) 10*3/uL Retic Count (0.10-1.80) % PT 18.4 H (10.0-12.5) sec INR 1.8 H (<1.2) D-Dimer 1.59 H (<0.60) mg/L FEU Sodium 135 L (137-145) mmol/L Carbon Dioxide 19 L (22-30) mmol/L BUN 19 H (7-17) mg/dL Glucose 121 H (74-99) mg/dL Total Bilirubin 7.8 H (0.2-1.3) mg/dL Lactate Dehydrogenase (120-246) U/L Troponin I (0.000-0.034) ng/mL Total Protein 6.2 L (6.3-8.2) g/dL Crossmatch Blood Bank Comment Reference Lab Result 03/30/25 03/30/25 03/30/25 Range/Units 17:00 17:00 19:22 WBC (4.50-10.00) 10*3/uL RBC (4.10-5.20) 10*6/uL Hgb (12.0-15.0) g/dL Hct (37.2-46.3) % MCV (80.0-97.0) fL MCH (27.0-32.0) pg MCHC (32.0-37.0) g/dL Immature Gran # (0.00-0.04) 10*3/uL Neutrophils # (1.80-7.70) 10*3/uL Lymphocytes # (0.90-5.00) 10*3/uL Monocytes # (0.20-1.00) 10*3/uL Retic Count 17.17 H (0.10-1.80) % PT (10.0-12.5) sec INR (<1.2) D-Dimer (<0.60) mg/L FEU Sodium (137-145) mmol/L Carbon Dioxide (22-30) mmol/L BUN (7-17) mg/dL Glucose (74-99) mg/dL Total Bilirubin (0.2-1.3) mg/dL Lactate Dehydrogenase (120-246) U/L Troponin I 0.166 H* (0.000-0.034) ng/mL Total Protein (6.3-8.2) g/dL Crossmatch See Detail Blood Bank Comment Sent to [facility] A Reference Lab Result See BBK REF Reports A 03/30/25 03/31/25 03/31/25 Range/Units 21:07 00:01 05:18 WBC (4.50-10.00) 10*3/uL RBC 1.20 L (4.10-5.20) 10*6/uL Hgb 5.0 L* D (12.0-15.0) g/dL Hct 15.3 L* (37.2-46.3) % MCV 127.5 H (80.0-97.0) fL MCH 41.7 H (27.0-32.0) pg MCHC (32.0-37.0) g/dL Immature Gran # 0.07 H (0.00-0.04) 10*3/uL Neutrophils # 7.83 H (1.80-7.70) 10*3/uL Lymphocytes # 0.81 L (0.90-5.00) 10*3/uL Monocytes # (0.20-1.00) 10*3/uL Retic Count (0.10-1.80) % PT (10.0-12.5) sec INR (<1.2) D-Dimer (<0.60) mg/L FEU Sodium (137-145) mmol/L Carbon Dioxide (22-30) mmol/L BUN (7-17) mg/dL Glucose (74-99) mg/dL Total Bilirubin (0.2-1.3) mg/dL Lactate Dehydrogenase (120-246) U/L Troponin I 0.219 H* 0.392 H* (0.000-0.034) ng/mL Total Protein (6.3-8.2) g/dL Crossmatch Blood Bank Comment Reference Lab Result 03/31/25 03/31/25 03/31/25 Range/Units 05:18 07:33 07:33 WBC (4.50-10.00) 10*3/uL RBC (4.10-5.20) 10*6/uL Hgb (12.0-15.0) g/dL Hct (37.2-46.3) % MCV (80.0-97.0) fL MCH (27.0-32.0) pg MCHC (32.0-37.0) g/dL Immature Gran # (0.00-0.04) 10*3/uL Neutrophils # (1.80-7.70) 10*3/uL Lymphocytes # (0.90-5.00) 10*3/uL Monocytes # (0.20-1.00) 10*3/uL Retic Count 20.53 H (0.10-1.80) % PT (10.0-12.5) sec INR (<1.2) D-Dimer (<0.60) mg/L FEU Sodium 133 L 134 L (137-145) mmol/L Carbon Dioxide (22-30) mmol/L BUN 20 H 19 H (7-17) mg/dL Glucose 115 H 111 H (74-99) mg/dL Total Bilirubin 7.1 H 6.8 H (0.2-1.3) mg/dL Lactate Dehydrogenase 331 H (120-246) U/L Troponin I (0.000-0.034) ng/mL Total Protein 5.3 L 5.3 L (6.3-8.2) g/dL Crossmatch Blood Bank Comment Reference Lab Result Diabetes panel 03/30/25 03/31/25 03/31/25 Range/Units 17:00 05:18 07:33 Sodium 135 L 133 L 134 L (137-145) mmol/L Potassium 4.6 4.1 4.0 (3.5-5.1) mmol/L Chloride 103 100 102 (98-107) mmol/L Carbon Dioxide 19 L 25 23 (22-30) mmol/L BUN 19 H 20 H 19 H (7-17) mg/dL Creatinine 0.93 0.95 0.94 (0.52-1.04) mg/dL Glucose 121 H 115 H 111 H (74-99) mg/dL Calcium 9.6 8.9 9.0 (8.4-10.2) mg/dL AST 32 32 32 (14-36) U/L ALT 23 25 25 (4-34) U/L Alkaline Phosphatase 91 70 71 (38-126) U/L Total Protein 6.2 L 5.3 L 5.3 L (6.3-8.2) g/dL Albumin 4.4 3.6 3.7 (3.5-5.0) g/dL Thyroid panel 03/30/25 Range/Units 19:00 TSH 2.210 (0.465-4.680) mIU/L Calcium panel 03/30/25 03/31/25 03/31/25 Range/Units 17:00 05:18 07:33 Calcium 9.6 8.9 9.0 (8.4-10.2) mg/dL Phosphorus 4.0 (2.5-4.5) mg/dL Albumin 4.4 3.6 3.7 (3.5-5.0) g/dL Pituitary panel 03/30/25 03/30/25 03/31/25 Range/Units 17:00 19:00 05:18 Sodium 135 L 133 L (137-145) mmol/L Potassium 4.6 4.1 (3.5-5.1) mmol/L Chloride 103 100 (98-107) mmol/L Carbon Dioxide 19 L 25 (22-30) mmol/L BUN 19 H 20 H (7-17) mg/dL Creatinine 0.93 0.95 (0.52-1.04) mg/dL Glucose 121 H 115 H (74-99) mg/dL Calcium 9.6 8.9 (8.4-10.2) mg/dL TSH 2.210 (0.465-4.680) mIU/L 03/31/25 Range/Units 07:33 Sodium 134 L (137-145) mmol/L Potassium 4.0 (3.5-5.1) mmol/L Chloride 102 (98-107) mmol/L Carbon Dioxide 23 (22-30) mmol/L BUN 19 H (7-17) mg/dL Creatinine 0.94 (0.52-1.04) mg/dL Glucose 111 H (74-99) mg/dL Calcium 9.0 (8.4-10.2) mg/dL TSH (0.465-4.680) mIU/L Adrenal panel 03/30/25 03/31/25 03/31/25 Range/Units 17:00 05:18 07:33 Sodium 135 L 133 L 134 L (137-145) mmol/L Potassium 4.6 4.1 4.0 (3.5-5.1) mmol/L Chloride 103 100 102 (98-107) mmol/L Carbon Dioxide 19 L 25 23 (22-30) mmol/L BUN 19 H 20 H 19 H (7-17) mg/dL Creatinine 0.93 0.95 0.94 (0.52-1.04) mg/dL Glucose 121 H 115 H 111 H (74-99) mg/dL Calcium 9.6 8.9 9.0 (8.4-10.2) mg/dL Total Bilirubin 7.8 H 7.1 H 6.8 H (0.2-1.3) mg/dL AST 32 32 32 (14-36) U/L ALT 23 25 25 (4-34) U/L Alkaline Phosphatase 91 70 71 (38-126) U/L Total Protein 6.2 L 5.3 L 5.3 L (6.3-8.2) g/dL Albumin 4.4 3.6 3.7 (3.5-5.0) g/dL Assessment and Plan Plan: 84-year-old female with concern for symptomatic anemia with current hemoglobin of 5. Recommend blood transfusion with packed red blood cell at this time. Hematology/oncology has been consulted secondary to patient's history of B-cell lymphoma and antiphospholipid antibody syndrome. At this point, her anemia does not appear to be related to GI concern, however will await recommendations from hematology if patient does require any endoscopy.
--- NOTE | 2025-03-31 17:32 | P.CONS ---
History of Present Illness - Reason for Consult Consult date: 03/31/25 anemia, history of marginal b cell lymphoma - History of Present Illness Patient is a 84-year-old female with history of antiphospholipid syndrome not on anticoagulation, severe aortic stenosis, low-grade marginal B cell lymphoma, follows up with Dr. Eid, who was consulted for anemia. She has a history of low-grade marginal B-cell lymphoma cycle rituximab in 2019. She was following up with Dr. Tinoco after experience shortness of breath, increased swelling, fatigue for the past month. She was evaluated and found to have irregular heartbeat and was sent to the ED. On arrival she was severely anemic and was ordered 2 units of packed PRBCs. She denies any active bleeding. Denies any bloody bowel movements. She noticed her skin was jaundiced. She also endorses dizziness, heart palpitations, chills, constipation. Denies any fever, nausea, vomiting, abdominal pain. 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 cancer b cell lymphoma History of Any Multi-Drug Resistant Organisms: None Reported Past Surgical History: Adenoidectomy, Cholecystectomy, Orthopedic Surgery, Tonsillectomy Additional Past Surgical History / Comment(s): Left knee arthoscopy x2, D&C, Colonoscopy, EGD, left knee replacement July 2017, TAVR 2021 at [facility]. Past Anesthesia/Blood Transfusion Reactions: Motion Sickness, Postoperative Nausea & Vomiting (PONV) Additional Past Anesthesia/Blood Transfusion Reaction / Comm: no hx blood transfusion Smoking Status: Never smoker - Past Family History Father Family Medical History: Cancer, Renal Disease Additional Family Medical History / Comment(s): cancer of spleen. father has history of renal failure. Mother Family Medical History: AFIB Additional Family Medical History / Comment(s): mother has history of atrial fibrillation Sister(s) Additional Family Medical History / Comment(s): sister has history of thyroid problems. Medications and Allergies Home Medications Medication Instructions Recorded Confirmed Type Levothyroxine Sodium [Synthroid] 50 mcg PO DAILY 07/30/16 03/30/25 History Montelukast [Singulair] 10 mg PO HS 07/30/16 03/30/25 History Aspirin EC [Ecotrin Low Dose] 81 mg PO DAILY 03/20/19 03/30/25 History Cetirizine HCl 10 mg PO DAILY 03/20/19 03/30/25 History Cholecalciferol [Vitamin D3 (25 25 mcg PO BID 07/03/21 03/30/25 History Mcg = 1000 Iu)] Latanoprost [Xalatan 0.005%] 1 drop BOTH EYES HS 07/03/21 03/30/25 History Sodium Chloride [Saline Nasal 1 spray EA NOSTRIL HS 08/27/21 03/30/25 History [place]] polyethylene glycoL 3350 [Miralax] 0.33 tsp PO DAILY 08/27/21 03/30/25 History Albuterol Nebulized [Ventolin 2.5 mg INHALATION RT-TID PRN 03/30/25 03/30/25 History Nebulized] Atorvastatin [Lipitor] 40 mg PO HS 03/30/25 03/30/25 History Brimonidine Tartrate [Alphagan P 1 drops BOTH EYES BID 03/30/25 03/30/25 History 0.2% Ophth Soln] Furosemide [Lasix] 20 mg PO DAILY PRN 03/30/25 03/30/25 History Multivitamins, Thera [Multivitamin 1 tab PO DAILY 03/30/25 03/30/25 History (formulary)] Potassium Chloride ER [K-Dur 10] 10 meq PO DAILY PRN 03/30/25 03/30/25 History ramipriL 5 mg PO DAILY 03/30/25 03/30/25 History Allergies Allergy/AdvReac Type Severity Reaction Status Date / Time Penicillins Allergy Rash/Hives Verified 08/27/21 17:53 omeprazole AdvReac Nausea & Verified 08/27/21 17:53 Vomiting & Diarrhea Physical Exam Vitals: Vital Signs Temp Pulse Pulse Resp BP BP Pulse Ox 03/31/25 11:25 91 18 94/53 100 03/31/25 09:39 97 18 99/78 98 03/31/25 08:43 18 03/31/25 08:33 116 H 18 112/66 99 03/31/25 07:51 98.2 F 96 18 99/64 99 03/31/25 07:15 93 16 99/53 98 03/31/25 04:00 98 18 94/58 99 03/31/25 00:05 84 18 103/67 100 03/30/25 21:46 94 19 104/65 100 03/30/25 20:14 117 H 18 03/30/25 20:11 115 H 17 152/95 96 03/30/25 20:06 118 H 18 03/30/25 18:15 100 03/30/25 18:01 101 H 03/30/25 16:29 99.6 F 113 H 20 113/70 98 Intake and Output 03/30/25 03/31/25 03/31/25 22:59 06:59 14:59 Output Total 1000 Balance -1000 Output: Urine 1000 Other: Voiding Method Bedside Commode # Voids 3 Weight 75.75 kg Gen: In NAD, non-toxic HEENT: normocephalic, atraumatic, hearing acuity is intact, mucous membranes moist CVS: perfusing all extremities well, b/l lower extremity edema, systolic mumur Respiratory: symmetric chest expansion, b/l crackles GI: soft, NTTP, ND, MSK/Derm: jaundice, no rashes, cyanosis Neuro: CN II-XII intact, no motor weakness, Psych: cooperative, euthymic mood, judgment and insight is intact Results CBC & Chem 7: 03/31/25 05:18 03/31/25 07:33 Labs: Abnormal Lab Results - Last 24 Hours (Table) 03/30/25 03/30/25 03/30/25 Range/Units 17:00 17:00 17:00 WBC 15.47 H (4.50-10.00) 10*3/uL RBC 1.32 L (4.10-5.20) 10*6/uL Hgb 6.5 L* (12.0-15.0) g/dL Hct 16.9 L* (37.2-46.3) % MCV 128.0 H (80.0-97.0) fL MCH 49.2 H (27.0-32.0) pg MCHC 38.5 H (32.0-37.0) g/dL Immature Gran # 0.13 H (0.00-0.04) 10*3/uL Neutrophils # 12.80 H (1.80-7.70) 10*3/uL Lymphocytes # (0.90-5.00) 10*3/uL Monocytes # 1.07 H (0.20-1.00) 10*3/uL Retic Count (0.10-1.80) % PT 18.4 H (10.0-12.5) sec INR 1.8 H (<1.2) D-Dimer 1.59 H (<0.60) mg/L FEU Sodium 135 L (137-145) mmol/L Carbon Dioxide 19 L (22-30) mmol/L BUN 19 H (7-17) mg/dL Glucose 121 H (74-99) mg/dL Total Bilirubin 7.8 H (0.2-1.3) mg/dL Lactate Dehydrogenase (120-246) U/L Troponin I (0.000-0.034) ng/mL Total Protein 6.2 L (6.3-8.2) g/dL Crossmatch Blood Bank Comment 03/30/25 03/30/25 03/30/25 Range/Units 17:00 17:00 19:22 WBC (4.50-10.00) 10*3/uL RBC (4.10-5.20) 10*6/uL Hgb (12.0-15.0) g/dL Hct (37.2-46.3) % MCV (80.0-97.0) fL MCH (27.0-32.0) pg MCHC (32.0-37.0) g/dL Immature Gran # (0.00-0.04) 10*3/uL Neutrophils # (1.80-7.70) 10*3/uL Lymphocytes # (0.90-5.00) 10*3/uL Monocytes # (0.20-1.00) 10*3/uL Retic Count 17.17 H (0.10-1.80) % PT (10.0-12.5) sec INR (<1.2) D-Dimer (<0.60) mg/L FEU Sodium (137-145) mmol/L Carbon Dioxide (22-30) mmol/L BUN (7-17) mg/dL Glucose (74-99) mg/dL Total Bilirubin (0.2-1.3) mg/dL Lactate Dehydrogenase (120-246) U/L Troponin I 0.166 H* (0.000-0.034) ng/mL Total Protein (6.3-8.2) g/dL Crossmatch See Detail Blood Bank Comment Sent to [facility] A 03/30/25 03/31/25 03/31/25 Range/Units 21:07 00:01 05:18 WBC (4.50-10.00) 10*3/uL RBC 1.20 L (4.10-5.20) 10*6/uL Hgb 5.0 L* D (12.0-15.0) g/dL Hct 15.3 L* (37.2-46.3) % MCV 127.5 H (80.0-97.0) fL MCH 41.7 H (27.0-32.0) pg MCHC (32.0-37.0) g/dL Immature Gran # 0.07 H (0.00-0.04) 10*3/uL Neutrophils # 7.83 H (1.80-7.70) 10*3/uL Lymphocytes # 0.81 L (0.90-5.00) 10*3/uL Monocytes # (0.20-1.00) 10*3/uL Retic Count (0.10-1.80) % PT (10.0-12.5) sec INR (<1.2) D-Dimer (<0.60) mg/L FEU Sodium (137-145) mmol/L Carbon Dioxide (22-30) mmol/L BUN (7-17) mg/dL Glucose (74-99) mg/dL Total Bilirubin (0.2-1.3) mg/dL Lactate Dehydrogenase (120-246) U/L Troponin I 0.219 H* 0.392 H* (0.000-0.034) ng/mL Total Protein (6.3-8.2) g/dL Crossmatch Blood Bank Comment 03/31/25 03/31/25 03/31/25 Range/Units 05:18 07:33 07:33 WBC (4.50-10.00) 10*3/uL RBC (4.10-5.20) 10*6/uL Hgb (12.0-15.0) g/dL Hct (37.2-46.3) % MCV (80.0-97.0) fL MCH (27.0-32.0) pg MCHC (32.0-37.0) g/dL Immature Gran # (0.00-0.04) 10*3/uL Neutrophils # (1.80-7.70) 10*3/uL Lymphocytes # (0.90-5.00) 10*3/uL Monocytes # (0.20-1.00) 10*3/uL Retic Count 20.53 H (0.10-1.80) % PT (10.0-12.5) sec INR (<1.2) D-Dimer (<0.60) mg/L FEU Sodium 133 L 134 L (137-145) mmol/L Carbon Dioxide (22-30) mmol/L BUN 20 H 19 H (7-17) mg/dL Glucose 115 H 111 H (74-99) mg/dL Total Bilirubin 7.1 H 6.8 H (0.2-1.3) mg/dL Lactate Dehydrogenase 331 H (120-246) U/L Troponin I (0.000-0.034) ng/mL Total Protein 5.3 L 5.3 L (6.3-8.2) g/dL Crossmatch Blood Bank Comment Assessment and Plan Assessment: #. 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 Low-grade marginal B cell lymphoma #. Neutrophillic leukocytosis #. Lymphopenia #. Antiphospholipid syndrome - 2 units of PRBCs ordered for Hgb 5.0, transfuse if < 7.0, no signs of acute bleeding - Elevated LDH 331 and retic count 20.53, haptoglobin wnl at 67.7, MCV 128 - Prednisone 80 mg daily, will monitor and taper down by 10 mg each week once there is clinical improvement - monitor retic count and LDH daily - antibody screen positive - peripheral blood smear ordered - B12 and folate ordered - surgery and cardiology on board, discussed case with cardiology - Patient with history NHL creates a higher probability that this is secondary to warm hemolytic anemia. Will monitor to see if steroids help resolve blood count and symptoms.
[2025-03-31] MEDS: MONTELUKAST 10 MG TAB PO SCH (20:03)
[2025-03-31] MEDS: LATANOPROST 0.005% OPHTH DROPS 2.5 ML BTL BOTH EYES SCH (20:32)
[2025-03-31] MEDS: IPRATROPIUM-ALBUTEROL 3 ML NEB INHALATION PRN (21:41)
[2025-03-31 22:26] LABS: HCT 23.0 % (37.2-46.3); MCH 40.4 pg (27.0-32.0); MCHC 35.7 g/dL (32.0-37.0); Platelet Count 192 10*3/uL (140-440); RBC 2.03 10*6/uL (4.10-5.20); WBC 8.97 10*3/uL (4.50-10.00)
[2025-03-31 22:32] LABS: HGB 8.2 g/dL (12.0-15.0); RDW 25.2 % (11.5-14.5)
[2025-03-31 22:33] LABS: MCV 113.3 fL (80.0-97.0)
[2025-04-01 08:31] LABS: African American GFR (CKD) 57 (>60 ml/min/1.73 sqM); Anion Gap 10 mmol/L; Blood Urea Nitrogen 22 mg/dL (7-17); Calcium 9.5 mg/dL (8.4-10.2); Carbon Dioxide 24 mmol/L (22-30); Chloride 101 mmol/L (98-107); Glucose 161 mg/dL (74-99); Non-African American GFR(CKD) 50 (>60 ml/min/1.73 sqM); Potassium 3.8 mmol/L (3.5-5.1); Sodium 135 mmol/L (137-145)
[2025-04-01 08:56] LABS: HCT 25.3 % (37.2-46.3); HGB 8.7 g/dL (12.0-15.0); MCH 38.5 pg (27.0-32.0); MCHC 34.4 g/dL (32.0-37.0); MCV 111.9 fL (80.0-97.0); Platelet Count 235 10*3/uL (140-440); RBC 2.26 10*6/uL (4.10-5.20); RDW 24.9 % (11.5-14.5); WBC 12.60 10*3/uL (4.50-10.00)
[2025-04-01] MEDS ORDERED: predniSONE 20 MG TAB PO SCH (09:00)
--- NOTE | 2025-04-01 12:09 | P.PN ---
Subjective Progress Note Date: 04/01/25 Patient seen and examined at bedside. States she is feeling better. No blood in her stool. Objective - Vital Signs Vital signs: Vital Signs Temp 98.4 F 04/01/25 08:00 Pulse 95 04/01/25 12:00 Resp 18 04/01/25 12:00 BP 102/58 04/01/25 12:00 Pulse Ox 100 04/01/25 12:00 FiO2 Intake & Output 03/31/25 04/01/25 04/01/25 18:59 06:59 18:59 Intake Total 310 310 Output Total 1000 700 200 Balance -690 -390 -200 Weight 72.5 kg Intake: Blood Product 310 310 Rc As-1 Unit 0 310 [id number] Rc As-1 Unit 310 [id number] Output: Urine 1000 700 200 Other: Voiding Method Toilet Toilet # Voids 2 - Constitutional General appearance: Present: cooperative - Gastrointestinal Gastrointestinal Comment(s): Soft, nontender, nondistended - Labs CBC & Chem 7: 04/01/25 07:58 04/01/25 07:58 Labs: Abnormal Lab Results - Last 24 Hours (Table) 03/30/25 03/31/25 04/01/25 Range/Units 19:22 21:47 07:58 WBC (4.50-10.00) 10*3/uL RBC 2.03 L (4.10-5.20) 10*6/uL Hgb 8.2 L D (12.0-15.0) g/dL Hct 23.0 L (37.2-46.3) % MCV 113.3 H D (80.0-97.0) fL MCH 40.4 H (27.0-32.0) pg RDW 25.2 H (11.5-14.5) % MPV 9.3 L (9.5-12.2) fL Retic Count (0.10-1.80) % Sodium 135 L (137-145) mmol/L BUN 22 H (7-17) mg/dL Glucose 161 H (74-99) mg/dL Lactate Dehydrogenase (120-246) U/L Crossmatch See Detail Blood Bank Comment Sent to [facility] A Reference Lab Result See [facility] REF Reports A 04/01/25 04/01/25 04/01/25 Range/Units 07:58 07:58 07:58 WBC 12.60 H (4.50-10.00) 10*3/uL RBC 2.26 L (4.10-5.20) 10*6/uL Hgb 8.7 L (12.0-15.0) g/dL Hct 25.3 L (37.2-46.3) % MCV 111.9 H (80.0-97.0) fL MCH 38.5 H (27.0-32.0) pg RDW (11.5-14.5) % MPV 9.3 L (9.5-12.2) fL Retic Count 13.05 H (0.10-1.80) % Sodium (137-145) mmol/L BUN (7-17) mg/dL Glucose (74-99) mg/dL Lactate Dehydrogenase 362 H (120-246) U/L Crossmatch Blood Bank Comment Reference Lab Result Assessment and Plan Plan: 84-year-old female with severe anemia. Currently undergoing treatment by hematology and oncology. No active GI bleed is noted. No plan for colonoscopy at this time, however if requested by hematology oncology, it can be performed. Will continue to follow and make recommendations based on patient's clinical progress.
--- NOTE | 2025-04-01 13:21 | P.PN ---
Subjective History of present illness; 84 year old female with significant pmhx of bronchial asthma, Aortic Stenosis, sp TAVR, CAD requiring stents, B cell lym phoma, Anti-phosopholipid antibody syndrome. She says that she was being managed with oral prednisone for an asthma exacerbation aprox a month ago, since then she has been experiencing shortness of breath and palpitations, she had an appointment with Dr. Tinoco outpatient and he advised her to report directly to the ER. She denies fever, chills, dizziness, chest pain, dark stool, blood in stool, active bleeding, In the ER she got a Chest Xray and CT PE. Both revealed mild pulmonary edema w/o evidence of PE. EKG done showed heart rate of 110 (sinus tachy) CBC showed Hbg of 6.5 and 5.0 on subsequent test. WBC: 9.52, Plt: 196, Reticulocyte count 20.5. 04/01: Pt seen at bedside, she reports feeling much better today with a much improved appetite. She is feeling stronger, no longer experiencing shortness of breath, still not fully recovered. Denies other complaints REVIEW OF SYSTEMS: As stated above in HPI. The rest of the 14-point review of systems is negative. PHYSICAL EXAMINATION: GENERAL: The patient is alert and oriented x3, not in any acute distress. Well developed, well nourished. HEENT: Pupils are round and equally reacting to light. EOMI. No Scleral Icterus CARDIOVASCULAR: S1 and S2 present. No murmurs, rubs, or gallops. PULMONARY: Chest is clear to auscultation b/l, no wheezing or crackles. ABDOMEN: Soft, nontender, nondistended, normoactive bowel sounds. No palpable organomegaly. MUSCULOSKELETAL: No joint swelling or deformity. EXTREMITIES: No cyanosis, clubbing. Mild edema NEUROLOGICAL: Gross neurological examination did not reveal any focal deficits. SKIN: No longer jaundiced Assessment and Plan 84 year old female with significant pmhx of bronchial asthma, Aortic Stenosis, sp TAVR, CAD requiring stents, B cell lymphoma, Anti-phosopholipid antibody synd hoda presents complaining of shortness of breath and palpitations. Lab evaluation discovered a macrocytic anemia of 5.0 with elevated billirubin. Anemia determined to be caused by warm hemolysis #Warm autoimmune hemolytic anemia #Macrocytic Anemia #Antiphospholipid Antibody Syndrome #Hyperbilirubinemia #Shortness of Breath -Pt on room air -Recieved RBC transfusion 2 units Hbg increased to 8.7 today - Appreciate recs from heme/onc -Prednisone 80 PO daily -Transfuse if HBG <7 -Surgery on board, determined no need for intervention at this time, continuing to follow #Acute Systolic CHF Exacerbation #Pulmonary Edema # Elevated troponin -Cardiology on board -Echo shows echo -Lasix 40 IV BID - Strict I&O: Less than 1500 mL -Daily Weigh in -Cont home med Chronic Conditions: #Asthma -Duonebs #Hypertension #Dyslipidemia #CAD #SP TAVR -Continue home meds #Antiphosphospholipid antibody syndrome #B Cell Lymphoma -B12 and folate within normal limits -Peripheral smear pending -IV heparin - Heme/onc on board DVT ppx: IV Heparin GI ppx: Protonix Dispo: Pending hbg stabalizing Neno Abad DO PGY-1 Objective - Vital Signs Vital signs: Vital Signs Temp 98.4 F 04/01/25 08:00 Pulse 95 04/01/25 12:00 Resp 18 04/01/25 12:00 BP 102/58 04/01/25 12:00 Pulse Ox 100 04/01/25 12:00 FiO2 Intake & Output 03/31/25 04/01/25 04/01/25 18:59 06:59 18:59 Intake Total 310 310 Output Total 1000 700 200 Balance -690 -390 -200 Weight 72.5 kg Intake: Blood Product 310 310 Rc As-1 Unit 0 310 [id number] Rc As-1 Unit 310 [id number] Output: Urine 1000 700 200 Other: Voiding Method Toilet Toilet # Voids 2 - Labs CBC & Chem 7: 04/01/25 07:58 04/01/25 07:58 Labs: Abnormal Lab Results - Last 24 Hours (Table) 03/30/25 03/31/25 04/01/25 Range/Units 19:22 21:47 07:58 WBC (4.50-10.00) 10*3/uL RBC 2.03 L (4.10-5.20) 10*6/uL Hgb 8.2 L D (12.0-15.0) g/dL Hct 23.0 L (37.2-46.3) % MCV 113.3 H D (80.0-97.0) fL MCH 40.4 H (27.0-32.0) pg RDW 25.2 H (11.5-14.5) % MPV 9.3 L (9.5-12.2) fL Retic Count (0.10-1.80) % Sodium 135 L (137-145) mmol/L BUN 22 H (7-17) mg/dL Glucose 161 H (74-99) mg/dL Lactate Dehydrogenase (120-246) U/L Crossmatch See Detail Blood Bank Comment Sent to [facility] A Reference Lab Result See BBK REF Reports A 04/01/25 04/01/25 04/01/25 Range/Units 07:58 07:58 07:58 WBC 12.60 H (4.50-10.00) 10*3/uL RBC 2.26 L (4.10-5.20) 10*6/uL Hgb 8.7 L (12.0-15.0) g/dL Hct 25.3 L (37.2-46.3) % MCV 111.9 H (80.0-97.0) fL MCH 38.5 H (27.0-32.0) pg RDW (11.5-14.5) % MPV 9.3 L (9.5-12.2) fL Retic Count 13.05 H (0.10-1.80) % Sodium (137-145) mmol/L BUN (7-17) mg/dL Glucose (74-99) mg/dL Lactate Dehydrogenase 362 H (120-246) U/L Crossmatch Blood Bank Comment Reference Lab Result
--- NOTE | 2025-04-01 17:49 | P.PN ---
Subjective Progress Note Date: 04/01/25 Patient is a 84-year-old female with a history of low-grade B-cell lymphoma status post chemotherapy following Dr. Eid, antiphospholipid syndrome not on anticoagulation, severe aortic stenosis status post TAVR and CAD status post 2 stents 3 years ago at [facility], hypertension, hyperlipidemia and asthma was sent to the ER after she was evaluated by her primary coin machine supervisor Dr. Tinoco at the office. Patient has been endorsing worsening exertional dyspnea with fatigue and lower extremity swelling for more than a month. Patient reports no chest pain, syncope or presyncope. Denies orthopnea and PND. Patient denies abdominal pain, bloody or tarry colored stools, nausea, vomiting, fever or chills. Patient is found to be severely anemic with initial hemoglobin level of 6.5 and subsequently 5.0. Patient denies any active bleeding. 2 units of packed RBC has been ordered. Patient continues to feel short of breath. Her most recent echocardiogram is from 07/12 revealing LVEF of 55 to 60% with severe aortic stenosis. Labs and images: WBC 9.5, globin 5.0, MCV 127.5, reticulocyte count 20.53, haptoglobin 67.6, D- dimer 1.59, sodium 134, potassium 4.0, BUN 19, creatinine 0.94, LDH 331, troponin 0.166, 0.219, 0.392, TSH 2.21, NT proBNP 8970 Chest x-ray shows pulmonary vascular congestion with bilateral pleural effusions Initial EKG shows sinus tachycardia Subsequent EKG sinus rhythm with with nonspecific ST to T wave changes. Echocardiogram shows LVEF of 45 to 50% with severe degeneration of the mitral valve with restricted posterior mitral leaflet. Moderate MR and mild MS. Bioprosthetic aortic valve with mild to moderate stenosis. Moderate tricuspid regurgitation with severe pulmonary hypertension with RVSP estimated at 55 mmHg. Progress note 04/01/2025 Seen and examined at bedside this a.m. BP 102/58, heart rate 100 bpm, sinus tachycardia Labs hemoglobin 8.7, WBC 12.6, BUN 22, creatinine 1.03, stool occult blood negative Echocardiogram showed EF of 45 to 50%, mild concentric LVH, no RWMA, severe LA dilatation with elevated LA filling pressures, degeneration of mitral valve with restricted posterior mitral leaflet with moderate regurgitation mild stenosis, bioprosthetic aortic valve with moderate stenosis likely worsened from high output state, moderate tricuspid regurgitation RVSP 55 mmHg Physical examination: Mild icterus Regular pulses, systolic ejection murmur, minimal JVP elevation 1-2+ bilateral extremity edema Diminished inspiratory effort with mild crackles audible in bilateral lung flores No focal neurological deficit Abdominal nondistended nontender Assessment: # Severe symptomatic anemia, likely from autoimmune hemolysis due to warm antibodies from prior history of recent Phoma. # Ischemic cardiomyopathy # Acute HFrEF # Type II NSTEMI from demand supply mismatch #History of CAD status post 2 stents #History of severe aortic stenosis status post TAVR #Antiphospholipid syndrome #Asthma Plan: Resume aspirin 81 mg, Lipitor 40 mg, IV Lasix 40 twice daily, Aldactone 12.5 mg daily, lisinopril 5 mg daily Otomize GDMT as blood pressure heart rate tolerates Monitor kidney function Objective - Vital Signs Vital signs: Vital Signs Temp 97.6 F 04/01/25 16:00 Pulse 77 04/01/25 16:00 Resp 16 04/01/25 16:00 BP 94/61 04/01/25 16:00 Pulse Ox 97 04/01/25 16:00 FiO2 Intake & Output 03/31/25 04/01/25 04/01/25 18:59 06:59 18:59 Intake Total 310 310 Output Total 5075 230 8284 Balance -690 -390 -1300 Weight 72.5 kg Intake: Blood Product 310 310 Rc As-1 Unit 0 310 [id number] Rc As-1 Unit 310 [id number] Output: Urine 4494 539 5890 Other: Voiding Method Toilet Toilet # Voids 2 - Labs CBC & Chem 7: 04/01/25 07:58 04/01/25 07:58 Labs: Abnormal Lab Results - Last 24 Hours (Table) 03/30/25 03/31/25 04/01/25 Range/Units 19:22 21:47 07:58 WBC (4.50-10.00) 10*3/uL RBC 2.03 L (4.10-5.20) 10*6/uL Hgb 8.2 L D (12.0-15.0) g/dL Hct 23.0 L (37.2-46.3) % MCV 113.3 H D (80.0-97.0) fL MCH 40.4 H (27.0-32.0) pg RDW 25.2 H (11.5-14.5) % MPV 9.3 L (9.5-12.2) fL Retic Count (0.10-1.80) % Sodium 135 L (137-145) mmol/L BUN 22 H (7-17) mg/dL Glucose 161 H (74-99) mg/dL Lactate Dehydrogenase (120-246) U/L Crossmatch See Detail 04/01/25 04/01/25 04/01/25 Range/Units 07:58 07:58 07:58 WBC 12.60 H (4.50-10.00) 10*3/uL RBC 2.26 L (4.10-5.20) 10*6/uL Hgb 8.7 L (12.0-15.0) g/dL Hct 25.3 L (37.2-46.3) % MCV 111.9 H (80.0-97.0) fL MCH 38.5 H (27.0-32.0) pg RDW (11.5-14.5) % MPV 9.3 L (9.5-12.2) fL Retic Count 13.05 H (0.10-1.80) % Sodium (137-145) mmol/L BUN (7-17) mg/dL Glucose (74-99) mg/dL Lactate Dehydrogenase 362 H (120-246) U/L Crossmatch
[2025-04-01] MEDS: SPIRONOLACTONE 25 MG TAB PO SCH (18:04)
--- NOTE | 2025-04-01 18:24 | P.PN ---
Subjective Progress Note Date: 04/01/25 No acute events overnight, pt reporting feeling improved. Hgb improved at 8.7 today. Objective - Vital Signs Vital signs: Vital Signs Temp 98.4 F 04/01/25 08:00 Pulse 95 04/01/25 12:00 Resp 18 04/01/25 12:00 BP 102/58 04/01/25 12:00 Pulse Ox 100 04/01/25 12:00 FiO2 Intake & Output 03/31/25 04/01/25 04/01/25 18:59 06:59 18:59 Intake Total 310 310 Output Total 5659 053 4965 Balance -690 390 -1300 Weight 72.5 kg Intake: Blood Product 310 310 Rc As-1 Unit 0 310 [id number] Rc As-1 Unit 310 [id number] Output: Urine 9411 536 1879 Other: Voiding Method Toilet Toilet # Voids 2 - Constitutional General appearance: Present: average body habitus, no acute distress - EENT Eyes: Present: scleral icterus ENT: Present: hearing grossly normal - Respiratory Details: breathing is even and unlabored - Cardiovascular Details: skin warm and dry - Integumentary Integumentary: Present: jaundiced - Psychiatric Psychiatric: Present: A&O x's 3 - Labs CBC & Chem 7: 04/01/25 07:58 04/01/25 07:58 Labs: Abnormal Lab Results - Last 24 Hours (Table) 03/30/25 03/31/25 04/01/25 Range/Units 19:22 21:47 07:58 WBC (4.50-10.00) 10*3/uL RBC 2.03 L (4.10-5.20) 10*6/uL Hgb 8.2 L D (12.0-15.0) g/dL Hct 23.0 L (37.2-46.3) % MCV 113.3 H D (80.0-97.0) fL MCH 40.4 H (27.0-32.0) pg RDW 25.2 H (11.5-14.5) % MPV 9.3 L (9.5-12.2) fL Retic Count (0.10-1.80) % Sodium 135 L (137-145) mmol/L BUN 22 H (7-17) mg/dL Glucose 161 H (74-99) mg/dL Lactate Dehydrogenase (120-246) U/L Crossmatch See Detail Blood Bank Comment Sent to [facility] A Reference Lab Result See BBK REF Reports A 04/01/25 04/01/25 04/01/25 Range/Units 07:58 07:58 07:58 WBC 12.60 H (4.50-10.00) 10*3/uL RBC 2.26 L (4.10-5.20) 10*6/uL Hgb 8.7 L (12.0-15.0) g/dL Hct 25.3 L (37.2-46.3) % MCV 111.9 H (80.0-97.0) fL MCH 38.5 H (27.0-32.0) pg RDW (11.5-14.5) % MPV 9.3 L (9.5-12.2) fL Retic Count 13.05 H (0.10-1.80) % Sodium (137-145) mmol/L BUN (7-17) mg/dL Glucose (74-99) mg/dL Lactate Dehydrogenase 362 H (120-246) U/L Crossmatch Blood Bank Comment Reference Lab Result Assessment and Plan (1) Anemia Current Visit: Yes Status: Acute Priority: High Code(s): D64.9 - ANEMIA, UNSPECIFIED SNOMED Code(s): 395325865 (2) Congestive heart failure Current Visit: Yes Status: Acute Code(s): I50.9 - HEART FAILURE, UNSPECIFIED SNOMED Code(s): 17742500 (3) Low grade B-cell lymphoma Current Visit: No Status: Acute Priority: Medium Code(s): C85.10 - UNSPECIFIED B-CELL LYMPHOMA, UNSPECIFIED SITE SNOMED Code(s): 326076915 Plan: Assessment: #. 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 Low-grade marginal B cell lymphoma #. Neutrophillic leukocytosis #. Lymphopenia #. Antiphospholipid syndrome - 2 units of PRBCs ordered for Hgb 5.0, with appropriate response. Transfuse if < 7.0, no signs of acute bleeding - Elevated LDH 331 and retic count 20.53, haptoglobin wnl at 67.7, MCV 128 - Prednisone 80 mg daily, will monitor and taper down by 10 mg each week once there is clinical improvement - monitor retic count and LDH daily - antibody screen positive - B12 and folate WNL - Surgery and cardiology on board, discussed case with cardiology - Patient with history NHL creates a higher probability that this is secondary to warm hemolytic anemia. - hgb showing improvement, 8.7 today. Retic improved to 13.0, LDH 362 Dr attests: I have performed H&P and developed impression and plan of care for patient, discussed with dictator. I agree with dictated note, documented as a scribe
[2025-04-01 21:35] LABS: African American GFR (CKD) 52 (>60 ml/min/1.73 sqM); Anion Gap 13 mmol/L; Blood Urea Nitrogen 31 mg/dL (7-17); Calcium 9.2 mg/dL (8.4-10.2); Carbon Dioxide 22 mmol/L (22-30); Chloride 98 mmol/L (98-107); Glucose 171 mg/dL (74-99); Magnesium 2.0 mg/dL (1.6-2.3); Non-African American GFR(CKD) 45 (>60 ml/min/1.73 sqM); Potassium 4.2 mmol/L (3.5-5.1); Sodium 133 mmol/L (137-145)
[2025-04-02 07:31] LABS: Basophils # (A) 0.02 10*3/uL (0.00-0.10); Basophils % (A) 0.2 %; Eosinophils # (A) 0.09 10*3/uL (0.04-0.35); Eosinophils % (A) 0.9 %; HGB 7.4 g/dL (12.0-15.0); Lymphocytes # (A) 0.94 10*3/uL (0.90-5.00); Lymphocytes % (A) 9.3 %; MCV 115.9 fL (80.0-97.0); Monocytes # (A) 0.95 10*3/uL (0.20-1.00); Monocytes % (A) 9.4 %; Neutrophils # (A) 8.05 10*3/uL (1.80-7.70); Neutrophils % (A) 79.4 %; Platelet Count 205 10*3/uL (140-440); RBC 1.57 10*6/uL (4.10-5.20); RDW 24.6 % (11.5-14.5); WBC 10.13 10*3/uL (4.50-10.00)
[2025-04-02 07:47] LABS: ALT 21 U/L (4-34); AST 23 U/L (14-36); African American GFR (CKD) 55 (>60 ml/min/1.73 sqM); Albumin 3.5 g/dL (3.5-5.0); Alkaline Phosphatase 74 U/L (38-126); Anion Gap 7 mmol/L; Blood Urea Nitrogen 31 mg/dL (7-17); Calcium 9.2 mg/dL (8.4-10.2); Carbon Dioxide 26 mmol/L (22-30); Chloride 101 mmol/L (98-107); Glucose 104 mg/dL (74-99); LDH 301 U/L (120-246); Non-African American GFR(CKD) 48 (>60 ml/min/1.73 sqM); Potassium 3.5 mmol/L (3.5-5.1); Sodium 134 mmol/L (137-145); Total Protein 5.1 g/dL (6.3-8.2)
[2025-04-02 08:07] LABS: MCH 47.1 pg (27.0-32.0); MCHC 40.7 g/dL (32.0-37.0)
[2025-04-02 08:08] LABS: HCT 18.2 % (37.2-46.3)
--- NOTE | 2025-04-02 09:20 | P.PN ---
Progress Note - Text Progress Note Date: 04/02/25 No acute events overnight VSS General-NAD CVS-RRR Lungs-NLB Abdomen-soft, NTND 84-year-old female with severe anemia. Patient is currently undergoing treatment by hematology and oncology. No active GI bleed is noted. No plan for colonoscopy at this time, however if requested by hematology oncology, it can be performed. Will continue to follow and make recommendations based on patient's clinical progress. Nitish Gonzalez [facility] [phone]
[2025-04-02 09:38] LABS: Anisocytosis (M) Present
--- NOTE | 2025-04-02 12:19 | P.PN ---
Subjective Progress Note Date: 04/02/25 Patient is a 84-year-old female with a history of low-grade B-cell lymphoma status post chemotherapy following Dr. Eid, antiphospholipid syndrome not on anticoagulation, severe aortic stenosis status post TAVR and CAD status post 2 stents 3 years ago at [facility], hypertension, hyperlipidemia and asthma was sent to the ER after she was evaluated by her primary diesel truck crane operator Dr. Tinoco at the office. Patient has been endorsing worsening exertional dyspnea with fatigue and lower extremity swelling for more than a month. Patient reports no chest pain, syncope or presyncope. Denies orthopnea and PND. Patient denies abdominal pain, bloody or tarry colored stools, nausea, vomiting, fever or chills. Patient is found to be severely anemic with initial hemoglobin level of 6.5 and subsequently 5.0. Patient denies any active bleeding. 2 units of packed RBC has been ordered. Patient continues to feel short of breath. Her most recent echocardiogram is from 07/12 revealing LVEF of 55 to 60% with se matt aortic stenosis. Labs and images: WBC 9.5, globin 5.0, MCV 127.5, reticulocyte count 20.53, haptoglobin 67.6, D- dimer 1.59, sodium 134, potassium 4.0, BUN 19, creatinine 0.94, LDH 331, troponin 0.166, 0.219, 0.392, TSH 2.21, NT proBNP 8970 Chest x-ray shows pulmonary vascular congestion with bilateral pleural effusions Initial EKG shows sinus tachycardia Subsequent EKG sinus rhythm with with nonspecific ST to T wave changes. Echocardiogram shows LVEF of 45 to 50% with severe degeneration of the mitral valve with restricted posterior mitral leaflet. Moderate MR and mild MS. Bioprosthetic aortic valve with mild to moderate stenosis. Moderate tricuspid regurgitation with severe pulmonary hypertension with RVSP estimated at 55 mmHg. Progress note 04/01/2025 Seen and examined at bedside this a.m. BP 102/58, heart rate 100 bpm, sinus tachycardia Labs hemoglobin 8.7, WBC 12.6, BUN 22, creatinine 1.03, stool occult blood negative Echocardiogram showed EF of 45 to 50%, mild concentric LVH, no RWMA, severe LA dilatation with elevated LA filling pressures, degeneration of mitral valve with restricted posterior mitral leaflet with moderate regurgitation mild stenosis, bioprosthetic aortic valve with moderate stenosis likely worsened from high output state, moderate tricuspid regurgitation RVSP 55 mmHg Physical examination: Mild icterus Regular pulses, systolic ejection murmur, minimal JVP elevation 1-2+ bilateral extremity edema Diminished inspiratory effort with mild crackles audible in bilateral lung flores No focal neurological deficit Abdominal nondistended nontender Assessment: # Severe symptomatic anemia, likely from autoimmune hemolysis due to warm antibodies from prior history of recent Phoma. # Ischemic cardiomyopathy # Acute HFrEF # Type II NSTEMI from demand supply mismatch #History of CAD status post 2 stents #History of severe aortic stenosis status post TAVR #Antiphospholipid syndrome #Asthma Plan: Resume aspirin 81 mg, Lipitor 40 mg, IV Lasix 40 twice daily, Aldactone 12.5 mg daily, lisinopril 5 mg daily Otomize GDMT as blood pressure heart rate tolerates Monitor kidney function Patient is a 84-year-old female with a history of low-grade B-cell lymphoma status post chemotherapy following Dr. Eid, antiphospholipid syndrome not on anticoagulation, severe aortic stenosis status post TAVR and CAD status post 2 stents 3 years ago at [facility], hypertension, hyperlipidemia and asthma was sent to the ER after she was evaluated by her primary diesel truck crane operator Dr. Tinoco at the office. Patient has been endorsing worsening exertional dyspnea with fatigue and lower extremity swelling for more than a month. Patient reports no chest pain, syncope or presyncope. Denies orthopnea and PND. Patient denies abdominal pain, bloody or tarry colored stools, nausea, vomiting, fever or chills. Patient is found to be severely anemic with initial hemoglobin level of 6.5 and subsequently 5.0. Patient denies any active bleeding. 2 units of packed RBC has been ordered. Patient continues to feel short of breath. Her most recent echocardiogram is from 07/12 revealing LVEF of 55 to 60% with severe aortic stenosis. Labs and images: WBC 9.5, globin 5.0, MCV 127.5, reticulocyte count 20.53, haptoglobin 67.6, D- dimer 1.59, sodium 134, potassium 4.0, BUN 19, creatinine 0.94, LDH 331, troponin 0.166, 0.219, 0.392, TSH 2.21, NT proBNP 8970 Chest x-ray shows pulmonary vascular congestion with bilateral pleural effusions Initial EKG shows sinus tachycardia Subsequent EKG sinus rhythm with with nonspecific ST to T wave changes. Echocardiogram shows LVEF of 45 to 50% with severe degeneration of the mitral valve with restricted posterior mitral leaflet. Moderate MR and mild MS. Bioprosthetic aortic valve with mild to moderate stenosis. Moderate tricuspid regurgitation with severe pulmonary hypertension with RVSP estimated at 55 mmHg. Progress note 04/01/2025 Seen and examined at bedside this a.m. BP 102/58, heart rate 100 bpm, sinus tachycardia Labs hemoglobin 8.7, WBC 12.6, BUN 22, creatinine 1.03, stool occult blood negative Echocardiogram showed EF of 45 to 50%, mild concentric LVH, no RWMA, severe LA dilatation with elevated LA filling pressures, degeneration of mitral valve with restricted posterior mitral leaflet with moderate regurgitation mild stenosis, bioprosthetic aortic valve with moderate stenosis likely worsened from high o utput state, moderate tricuspid regurgitation RVSP 55 mmHg 04/02/2025 Seen and examined at bedside this a.m. BP 101/59, heart rate 85 Sinus rhythm on telemetry BUN is 31, creatinine is 1.07 I will discontinue IV diuretics and changed to p.o. will not add beta-christ because of high output state and need for higher heart rates because of anemia. Hemoglobin did drop today to 7.4 with low MCH. For some reason her aspirin is held which I will resume again. Physical examination: Mild icterus Regular pulses, systolic ejection murmur, minimal JVP elevation 1-2+ bilateral extremity edema Diminished inspiratory effort with mild crackles audible in bilateral lung flores No focal neurological deficit Abdominal nondistended nontender Assessment: # Severe symptomatic anemia, likely from autoimmune hemolysis due to warm antibodies from prior history of recent Phoma. # Ischemic cardiomyopathy # Acute HFrEF # Type II NSTEMI from demand supply mismatch #History of CAD status post 2 stents #History of severe aortic stenosis status post TAVR #Antiphospholipid syndrome #Asthma Plan: Resume aspirin 81 mg, Lipitor 40 mg, Continue IV Lasix start Lasix 40 p.o. twice daily. Aldactone 12.5 mg daily, lisinopril 5 mg daily Otomize GDMT as blood pressure heart rate tolerates Monitor kidney function Appreciate recommendations from hematology team regarding anemia. Objective - Vital Signs Vital signs: Vital Signs Temp 98.2 F 04/02/25 12:12 Pulse 85 04/02/25 12:12 Resp 20 04/02/25 12:12 BP 101/59 04/02/25 12:12 Pulse Ox 98 04/02/25 12:12 FiO2 Intake & Output 04/01/25 04/02/25 04/02/25 18:59 06:59 18:59 Intake Total 1440 Output Total 1300 950 Balance -1300 490 Weight 72.6 kg Intake: Oral 1440 Output: Urine 1300 950 Other: Voiding Method Toilet Toilet Toilet - Labs CBC & Chem 7: 04/02/25 06:24 04/02/25 06:24 Labs: Abnormal Lab Results - Last 24 Hours (Table) 04/01/25 04/02/25 04/02/25 Range/Units 21:11 06:24 06:24 WBC 10.13 H (4.50-10.00) 10*3/uL RBC 1.57 L (4.10-5.20) 10*6/uL Hgb 7.4 L (12.0-15.0) g/dL Hct 18.2 L* (37.2-46.3) % MCV 115.9 H (80.0-97.0) fL MCH 47.1 H (27.0-32.0) pg MCHC 40.7 H (32.0-37.0) g/dL Immature Gran # 0.08 H (0.00-0.04) 10*3/uL Neutrophils # 8.05 H (1.80-7.70) 10*3/uL Sodium 133 L 134 L (137-145) mmol/L BUN 31 H 31 H (7-17) mg/dL Creatinine 1.12 H 1.07 H (0.52-1.04) mg/dL Glucose 171 H 104 H (74-99) mg/dL Total Bilirubin 5.1 H (0.2-1.3) mg/dL Lactate Dehydrogenase 301 H (120-246) U/L Total Protein 5.1 L (6.3-8.2) g/dL
--- NOTE | 2025-04-02 13:09 | P.PN ---
Subjective History of present illness; 84 year old female with significant pmhx of bronchial asthma, Aortic Stenosis, sp TAVR, CAD requiring stents, B cell lym phoma, Anti-phosopholipid antibody syndrome. She says that she was being managed with oral prednisone for an asthma exacerbation aprox a month ago, since then she has been experiencing shortness of breath and palpitations, she had an appointment with Dr. Tinoco outpatient and he advised her to report directly to the ER. She denies fever, chills, dizziness, chest pain, dark stool, blood in stool, active bleeding, In the ER she got a Chest Xray and CT PE. Both revealed mild pulmonary edema w/o evidence of PE. EKG done showed heart rate of 110 (sinus tachy) CBC showed Hbg of 6.5 and 5.0 on subsequent test. WBC: 9.52, Plt: 196, Reticulocyte count 20.5. 04/01: Pt seen at bedside, she reports feeling much better today with a much improved appetite. She is feeling stronger, no longer experiencing shortness of breath, still not fully recovered. Denies other complaints 04/02: Patient seen at bedside states that she is having trouble sleeping due to prednisone. Was previously on Ativan not needed at discussed with cardiology advised against sleeping aids. Patient understands plan. All questions and concerns discussed and addressed. REVIEW OF SYSTEMS: As stated above in HPI. The rest of the 14-point review of systems is negative. PHYSICAL EXAMINATION: GENERAL: The patient is alert and oriented x3, not in any acute distress. Well developed, well nourished. HEENT: Pupils are round and equally reacting to light. EOMI. No Scleral Icterus CARDIOVASCULAR: S1 and S2 present. No murmurs, rubs, or gallops. PULMONARY: Chest is clear to auscultation b/l, no wheezing or crackles. ABDOMEN: Soft, nontender, nondistended, normoactive bowel sounds. No palpable organomegaly. MUSCULOSKELETAL: No joint swelling or deformity. EXTREMITIES: No cyanosis, clubbing. Mild edema NEUROLOGICAL: Gross neurological examination did not reveal any focal deficits. SKIN: No longer jaundiced Assessment and Plan 84 year old female with significant pmhx of bronchial asthma, Aortic Stenosis, sp TAVR, CAD requiring stents, B cell lymphoma, Anti-phosopholipid antibody syndrome presents complaining of shortness of breath and palpitations. Lab evaluation discovered a macrocytic anemia of 5.0 with elevated billirubin. Anemia determined to be caused by warm hemolysis #Warm autoimmune hemolytic anemia #Macrocytic Anemia #Antiphospholipid Antibody Syndrome #Hyperbilirubinemia #Shortness of Breath -Pt on room air -Hemoglobin decreased to 7.4 from 8.4 - Bilirubin and LDH decreased from 6.8 to 5.1 and 362 to 301 respectively - no longer consistent with hemolysis - Appreciate recs from heme/onc -Prednisone 80 PO daily -Transfuse if HBG <7 -Surgery on board, determined no need for intervention at this time, continuing to follow #Acute Systolic CHF Exacerbation #Pulmonary Edema # Type II NSTEMI supply demand mismatch -Cardiology on board -Echo shows 45-50% ef -Lasix 40 IV BID -Add Aldactone 12.5 daily + lisinopril 5 mg daily Resume aspirin 81 mg, Lipitor 40 mg. - Strict I&O: Less than 1500 mL -Daily Weight -Cont home med Chronic Conditions: #Asthma -Duonebs #Hypertension #Dyslipidemia #CAD #SP TAVR -Continue home meds #Antiphosphospholipid antibody syndrome #B Cell Lymphoma -B12 and folate within normal limits -Peripheral smear pending -IV heparin - Heme/onc on board Reticulocyte count daily, LDH daily #Hypothyroidism - Resume Synthroid DVT ppx: IV Heparin GI ppx: Protonix Dispo: Pending hbg stabalizing Neno Abad DO PGY-1 Dr. Jaime MD I have performed a history and physical examination and medical decision making of this patient, discussed the same with the dictator, and agree with the dictators assessment and plan as written, documented as a scribe. Based on total visit time, I have performed more than 50% of this visit. Objective - Vital Signs Vital signs: Vital Signs Temp 98 F 04/02/25 08:00 Pulse 97 04/02/25 08:00 Resp 16 04/02/25 08:00 BP 98/60 04/02/25 08:00 Pulse Ox 98 04/02/25 08:00 FiO2 Intake & Output 04/01/25 04/02/25 04/02/25 18:59 06:59 18:59 Intake Total 1440 Output Total 1300 950 Balance -1300 490 Weight 72.6 kg Intake: Oral 1440 Output: Urine 1300 950 Other: Voiding Method Toilet Toilet Toilet - Labs CBC & Chem 7: 04/02/25 06:24 04/02/25 06:24 Labs: Abnormal Lab Results - Last 24 Hours (Table) 04/01/25 04/02/25 04/02/25 Range/Units 21:11 06:24 06:24 WBC 10.13 H (4.50-10.00) 10*3/uL RBC 1.57 L (4.10-5.20) 10*6/uL Hgb 7.4 L (12.0-15.0) g/dL Hct 18.2 L* (37.2-46.3) % MCV 115.9 H (80.0-97.0) fL MCH 47.1 H (27.0-32.0) pg MCHC 40.7 H (32.0-37.0) g/dL Immature Gran # 0.08 H (0.00-0.04) 10*3/uL Neutrophils # 8.05 H (1.80-7.70) 10*3/uL Sodium 133 L 134 L (137-145) mmol/L BUN 31 H 31 H (7-17) mg/dL Creatinine 1.12 H 1.07 H (0.52-1.04) mg/dL Glucose 171 H 104 H (74-99) mg/dL Total Bilirubin 5.1 H (0.2-1.3) mg/dL Lactate Dehydrogenase 301 H (120-246) U/L Total Protein 5.1 L (6.3-8.2) g/dL
[2025-04-02] MEDS: FUROSEMIDE 40 MG TAB PO SCH (15:07)
[2025-04-03 07:41] LABS: Basophils # (A) 0.00 10*3/uL (0.00-0.10); Basophils % (A) 0.0 %; Eosinophils # (A) 0.10 10*3/uL (0.04-0.35); Eosinophils % (A) 1.1 %; HCT 20.1 % (37.2-46.3); HGB 8.5 g/dL (12.0-15.0); Lymphocytes # (A) 1.21 10*3/uL (0.90-5.00); Lymphocytes % (A) 13.9 %; MCV 116.9 fL (80.0-97.0); Monocytes # (A) 0.82 10*3/uL (0.20-1.00); Monocytes % (A) 9.4 %; Neutrophils # (A) 6.51 10*3/uL (1.80-7.70); Neutrophils % (A) 74.8 %; Platelet Count 220 10*3/uL (140-440); RBC 1.72 10*6/uL (4.10-5.20); RDW 24.2 % (11.5-14.5); WBC 8.71 10*3/uL (4.50-10.00)
[2025-04-03 08:01] LABS: ALT 22 U/L (4-34); AST 24 U/L (14-36); African American GFR (CKD) 51 (>60 ml/min/1.73 sqM); Albumin 3.9 g/dL (3.5-5.0); Alkaline Phosphatase 85 U/L (38-126); Anion Gap 8 mmol/L; Blood Urea Nitrogen 37 mg/dL (7-17); Calcium 9.6 mg/dL (8.4-10.2); Carbon Dioxide 29 mmol/L (22-30); Chloride 98 mmol/L (98-107); Glucose 97 mg/dL (74-99); LDH 310 U/L (120-246); Non-African American GFR(CKD) 45 (>60 ml/min/1.73 sqM); Potassium 3.9 mmol/L (3.5-5.1); Sodium 135 mmol/L (137-145); Total Protein 5.4 g/dL (6.3-8.2)
[2025-04-03 08:15] LABS: MCH 49.4 pg (27.0-32.0); MCHC 42.3 g/dL (32.0-37.0)
--- NOTE | 2025-04-03 09:11 | P.PN ---
Subjective Progress Note Date: 04/03/25 Patient seen and examined at bedside. No acute events Objective - Vital Signs Vital signs: Vital Signs Temp 98.0 F 04/03/25 05:00 Pulse 87 04/03/25 05:00 Resp 16 04/03/25 05:00 BP 107/69 04/03/25 05:00 Pulse Ox 96 04/03/25 05:00 FiO2 Intake & Output 04/02/25 04/03/25 04/03/25 18:59 06:59 18:59 Intake Total 120 180 Output Total 2300 200 400 Balance -2180 -200 -220 Weight 74.4 kg Intake: Oral 120 180 Output: Urine 2300 200 400 Other: Voiding Method Toilet Toilet - Constitutional General appearance: Present: cooperative, no acute distress - Gastrointestinal Gastrointestinal Comment(s): Soft, nontender, nondistended, no rebound or guard - Labs CBC & Chem 7: 04/03/25 07:11 04/03/25 07:11 Labs: Abnormal Lab Results - Last 24 Hours (Table) 04/02/25 04/02/25 04/03/25 Range/Units 06:24 06:24 07:11 RBC (4.10-5.20) 10*6/uL Hgb (12.0-15.0) g/dL Hct (37.2-46.3) % MCV (80.0-97.0) fL MCH (27.0-32.0) pg MCHC (32.0-37.0) g/dL MPV (9.5-12.2) fL Immature Gran # (0.00-0.04) 10*3/uL Neutrophils # 8.05 H (1.80-7.70) 10*3/uL Retic Count 11.69 H (0.10-1.80) % Sodium 135 L (137-145) mmol/L BUN 37 H (7-17) mg/dL Creatinine 1.13 H (0.52-1.04) mg/dL Total Bilirubin 4.8 H (0.2-1.3) mg/dL Lactate Dehydrogenase 310 H (120-246) U/L Total Protein 5.4 L (6.3-8.2) g/dL 04/03/25 Range/Units 07:11 RBC 1.72 L (4.10-5.20) 10*6/uL Hgb 8.5 L (12.0-15.0) g/dL Hct 20.1 L (37.2-46.3) % MCV 116.9 H (80.0-97.0) fL MCH 49.4 H (27.0-32.0) pg MCHC 42.3 H (32.0-37.0) g/dL MPV 9.3 L (9.5-12.2) fL Immature Gran # 0.07 H (0.00-0.04) 10*3/uL Neutrophils # (1.80-7.70) 10*3/uL Retic Count (0.10-1.80) % Sodium (137-145) mmol/L BUN (7-17) mg/dL Creatinine (0.52-1.04) mg/dL Total Bilirubin (0.2-1.3) mg/dL Lactate Dehydrogenase (120-246) U/L Total Protein (6.3-8.2) g/dL Assessment and Plan Plan: 84-year-old female with severe anemia. Currently undergoing treatment by laney tology and oncology. No active GI bleed is noted. Hemoglobin currently stable. No plan for colonoscopy at this time, however if requested by hematology oncology, it can be performed. Will continue to follow and make recommendations based on patient's clinical progress.
[2025-04-03] MEDS: ASPIRIN 81 MG PO SCH (09:58)
--- NOTE | 2025-04-03 13:29 | P.PN ---
Subjective History of present illness; 84 year old female with significant pmhx of bronchial asthma, Aortic Stenosis, sp TAVR, CAD requiring stents, B cell lymp carlos, Anti-phosopholipid antibody syndrome. She says that she was being managed with oral prednisone for an asthma exacerbation aprox a month ago, since then she has been experiencing shortness of breath and palpitations, she had an appointment with Dr. Tinoco outpatient and he advised her to report directly to the ER. She denies fever, chills, dizziness, chest pain, dark stool, blood in stool, active bleeding, In the ER she got a Chest Xray and CT PE. Both revealed mild pulmonary edema w/o evidence of PE. EKG done showed heart rate of 110 (sinus tachy) CBC showed Hbg of 6.5 and 5.0 on subsequent test. WBC: 9.52, Plt: 196, Reticulocyte count 20.5. 04/01: Pt seen at bedside, she reports feeling much better today with a much improved appetite. She is feeling stronger, no longer experiencing shortness of breath, still not fully recovered. Denies other complaints 04/02: Patient seen at bedside states that she is having trouble sleeping due to prednisone. Was previously on Ativan not needed at discussed with cardiology advised against sleeping aids. Patient understands plan. All questions and concerns discussed and addressed. 04/03: Patient seen at bedside. Stated sleeping well last night however reports increasing exhaustion. Expresses concerns for hemoglobin levels. Currently hemoglobin 8.5 and hematocrit 20.1 both significant for improvement from yesterday. Reports slight lightheadedness. Hypotensive BP101/60 , lisinopril placed on hold. REVIEW OF SYSTEMS: As stated above in HPI. The rest of the 14-point review of systems is negative. PHYSICAL EXAMINATION: GENERAL: The patient is alert and oriented x3, not in any acute distress. Well developed, well nourished. HEENT: Pupils are round and equally reacting to light. EOMI. No Scleral Icterus CARDIOVASCULAR: S1 and S2 present. No murmurs, rubs, or gallops. PULMONARY: Chest is clear to auscultation b/l, no wheezing or crackles. ABDOMEN: Soft, nontender, nondistended, normoactive bowel sounds. No palpable organomegaly. MUSCULOSKELETAL: No joint swelling or deformity. EXTREMITIES: No cyanosis, clubbing. Mild edema NEUROLOGICAL: Gross neurological examination did not reveal any focal deficits. SKIN: No longer jaundiced Assessment and Plan 84 year old female with significant pmhx of bronchial asthma, Aortic Stenosis, sp TAVR, CAD requiring stents, B cell lymphoma, Anti-phosopholipid antibody syndrome presents complaining of shortness of breath and palpitations. Lab evaluation discovered a macrocytic anemia of 5.0 with elevated billirubin. 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 - Strict I&O: Less than 1500 mL -Daily Weight -Cont home med Chronic Conditions: #Asthma -Duonebs #Hypertension #Dyslipidemia #CAD #SP TAVR -Continue home meds -hold lisinopril, monitor BP #Antiphosphospholipid antibody syndrome #B Cell Lymphoma -B12 and folate within normal limits -Peripheral smear pending -IV heparin - Heme/onc on board Reticulocyte count daily, LDH daily #Hypothyroidism - Resume Synthroid DVT ppx: IV Heparin GI ppx: Protonix Dispo: Pending hbg stabalizing Objective - Vital Signs Vital signs: Vital Signs Temp 97.7 F 04/03/25 08:00 Pulse 86 04/03/25 08:00 Resp 16 04/03/25 08:00 BP 101/60 04/03/25 08:00 Pulse Ox 97 04/03/25 08:00 FiO2 Intake & Output 04/02/25 04/03/25 04/03/25 18:59 06:59 18:59 Intake Total 120 900 Output Total 2300 200 700 Balance -2180 -200 200 Weight 74.4 kg Intake: Oral 120 900 Output: Urine 2300 200 700 Other: Voiding Method Toilet Toilet - Labs CBC & Chem 7: 04/03/25 07:11 04/03/25 07:11 Labs: Abnormal Lab Results - Last 24 Hours (Table) 04/02/25 04/03/25 04/03/25 Range/Units 06:24 07:00 07:11 RBC (4.10-5.20) 10*6/uL Hgb (12.0-15.0) g/dL Hct (37.2-46.3) % MCV (80.0-97.0) fL MCH (27.0-32.0) pg MCHC (32.0-37.0) g/dL MPV (9.5-12.2) fL Immature Gran # (0.00-0.04) 10*3/uL Retic Count 11.69 H 10.46 H (0.10-1.80) % Sodium 135 L (137-145) mmol/L BUN 37 H (7-17) mg/dL Creatinine 1.13 H (0.52-1.04) mg/dL Total Bilirubin 4.8 H (0.2-1.3) mg/dL Lactate Dehydrogenase 310 H (120-246) U/L Total Protein 5.4 L (6.3-8.2) g/dL 04/03/25 Range/Units 07:11 RBC 1.72 L (4.10-5.20) 10*6/uL Hgb 8.5 L (12.0-15.0) g/dL Hct 20.1 L (37.2-46.3) % MCV 116.9 H (80.0-97.0) fL MCH 49.4 H (27.0-32.0) pg MCHC 42.3 H (32.0-37.0) g/dL MPV 9.3 L (9.5-12.2) fL Immature Gran # 0.07 H (0.00-0.04) 10*3/uL Retic Count (0.10-1.80) % Sodium (137-145) mmol/L BUN (7-17) mg/dL Creatinine (0.52-1.04) mg/dL Total Bilirubin (0.2-1.3) mg/dL Lactate Dehydrogenase (120-246) U/L Total Protein (6.3-8.2) g/dL
--- NOTE | 2025-04-03 23:22 | P.PN ---
Subjective Progress Note Date: 04/03/25 Patient is a 84-year-old female with a history of low-grade B-cell lymphoma status post chemotherapy following Dr. Eid, antiphospholipid syndrome not on anticoagulation, severe aortic stenosis status post TAVR and CAD status post 2 stents 3 years ago at [facility], hypertension, hyperlipidemia and asthma was sent to the ER after she was evaluated by her primary marine railway operator Dr. Tinoco at the office. Patient has been endorsing worsening exertional dyspnea with fatigue and lower extremity swelling for more than a month. Patient reports no chest pain, syncope or presyncope. Denies orthopnea and PND. Patient denies abdominal pain, bloody or tarry colored stools, nausea, vomiting, fever or chills. Patient is found to be severely anemic with initial hemoglobin level of 6.5 and subsequently 5.0. Patient denies any active bleeding. 2 units of packed RBC has been ordered. Patient continues to feel short of breath. Her most recent echocardiogram is from 07/12 revealing LVEF of 55 to 60% with se matt aortic stenosis. Labs and images: WBC 9.5, globin 5.0, MCV 127.5, reticulocyte count 20.53, haptoglobin 67.6, D- dimer 1.59, sodium 134, potassium 4.0, BUN 19, creatinine 0.94, LDH 331, troponin 0.166, 0.219, 0.392, TSH 2.21, NT proBNP 8970 Chest x-ray shows pulmonary vascular congestion with bilateral pleural effusions Initial EKG shows sinus tachycardia Subsequent EKG sinus rhythm with with nonspecific ST to T wave changes. Echocardiogram shows LVEF of 45 to 50% with severe degeneration of the mitral valve with restricted posterior mitral leaflet. Moderate MR and mild MS. Bioprosthetic aortic valve with mild to moderate stenosis. Moderate tricuspid regurgitation with severe pulmonary hypertension with RVSP estimated at 55 mmHg. Progress note 04/01/2025 Seen and examined at bedside this a.m. BP 102/58, heart rate 100 bpm, sinus tachycardia Labs hemoglobin 8.7, WBC 12.6, BUN 22, creatinine 1.03, stool occult blood negative Echocardiogram showed EF of 45 to 50%, mild concentric LVH, no RWMA, severe LA dilatation with elevated LA filling pressures, degeneration of mitral valve with restricted posterior mitral leaflet with moderate regurgitation mild stenosis, bioprosthetic aortic valve with moderate stenosis likely worsened from high output state, moderate tricuspid regurgitation RVSP 55 mmHg 04/02/2025 Seen and examined at bedside this a.m. BP 101/59, heart rate 85 Sinus rhythm on telemetry BUN is 31, creatinine is 1.07 I will discontinue IV diuretics and changed to p.o. will not add beta-christ because of high output state and need for higher heart rates because of anemia. Hemoglobin did drop today to 7.4 with low MCH. For some reason her aspirin is held which I will resume again. 04/03/2025 Hb 8.5, BUN 37, creatinine 1.13 bilirubin 4.8 Hb 111/68, heart rate 91, sinus rhythm Physical examination: Mild icterus Regular pulses, systolic ejection murmur, minimal JVP elevation 1-2+ bilateral extremity edema Diminished inspiratory effort with mild crackles audible in bilateral lung flores No focal neurological deficit Abdominal nondistended nontender Assessment: # Severe symptomatic anemia, likely from autoimmune hemolysis due to warm antibodies from prior history of recent Phoma. # Ischemic cardiomyopathy # Acute HFrEF # Type II NSTEMI from demand supply mismatch #History of CAD status post 2 stents #History of severe aortic stenosis status post TAVR #Antiphospholipid syndrome #Asthma Plan: Resume aspirin 81 mg, Lipitor 40 mg, Lasix 40 p.o. twice daily. Aldactone 12.5 mg daily, lisinopril 5 mg daily Otomize GDMT as blood pressure heart rate tolerates Monitor kidney function Appreciate recommendations from hematology team regarding anemia. Anticipate discharge in next 24 to 48 hours. Recommended repeating outpatient echocardiogram for mitral valve evaluation in next 1 to 2 months Objective - Vital Signs Vital signs: Vital Signs Temp 98.2 F 04/03/25 19:53 Pulse 97 04/03/25 19:53 Resp 18 04/03/25 19:53 BP 108/65 04/03/25 19:53 Pulse Ox 96 04/03/25 19:53 FiO2 Intake & Output 04/03/25 04/03/25 04/04/25 06:59 18:59 06:59 Intake Total 1080 Output Total 200 1550 Balance -200 -470 Weight 74.4 kg Intake: Oral 1080 Output: Urine 200 1550 Other: Voiding Method Toilet Toilet - Labs CBC & Chem 7: 04/03/25 07:11 04/03/25 07:11 Labs: Abnormal Lab Results - Last 24 Hours (Table) 04/03/25 04/03/25 04/03/25 Range/Units 07:00 07:11 07:11 RBC 1.72 L (4.10-5.20) 10*6/uL Hgb 8.5 L (12.0-15.0) g/dL Hct 20.1 L (37.2-46.3) % MCV 116.9 H (80.0-97.0) fL MCH 49.4 H (27.0-32.0) pg MCHC 42.3 H (32.0-37.0) g/dL MPV 9.3 L (9.5-12.2) fL Immature Gran # 0.07 H (0.00-0.04) 10*3/uL Retic Count 10.46 H (0.10-1.80) % Sodium 135 L (137-145) mmol/L BUN 37 H (7-17) mg/dL Creatinine 1.13 H (0.52-1.04) mg/dL Total Bilirubin 4.8 H (0.2-1.3) mg/dL Lactate Dehydrogenase 310 H (120-246) U/L Total Protein 5.4 L (6.3-8.2) g/dL
[2025-04-03 23:28] VITALS: RESP 16
[2025-04-04 06:40] LABS: ALT 20 U/L (4-34); AST 27 U/L (14-36); African American GFR (CKD) 64 (>60 ml/min/1.73 sqM); Albumin 3.8 g/dL (3.5-5.0); Alkaline Phosphatase 98 U/L (38-126); Anion Gap 10 mmol/L; Blood Urea Nitrogen 33 mg/dL (7-17); Calcium 9.6 mg/dL (8.4-10.2); Carbon Dioxide 26 mmol/L (22-30); Chloride 99 mmol/L (98-107); Glucose 145 mg/dL (74-99); Non-African American GFR(CKD) 56 (>60 ml/min/1.73 sqM); Potassium 3.4 mmol/L (3.5-5.1); Sodium 135 mmol/L (137-145); Total Protein 5.4 g/dL (6.3-8.2)
[2025-04-04 07:13] LABS: Basophils # (A) 0.00 10*3/uL (0.00-0.10); Basophils % (A) 0.0 %; Eosinophils # (A) 0.07 10*3/uL (0.04-0.35); Eosinophils % (A) 0.8 %; HCT 24.0 % (37.2-46.3); HGB 8.4 g/dL (12.0-15.0); Lymphocytes # (A) 1.05 10*3/uL (0.90-5.00); Lymphocytes % (A) 11.8 %; MCH 39.4 pg (27.0-32.0); MCHC 35.0 g/dL (32.0-37.0); MCV 112.7 fL (80.0-97.0); Monocytes # (A) 0.69 10*3/uL (0.20-1.00); Monocytes % (A) 7.8 %; Neutrophils # (A) 7.00 10*3/uL (1.80-7.70); Neutrophils % (A) 78.8 %; Platelet Count 210 10*3/uL (140-440); RBC 2.13 10*6/uL (4.10-5.20); RDW 21.1 % (11.5-14.5); WBC 8.88 10*3/uL (4.50-10.00)
[2025-04-04] MEDS ORDERED: Potassium Replacement Protocol 1 EACH MISC MISCELLANE PRN (08:08)
[2025-04-04 08:13] VITALS: TEMP 98
[2025-04-04] MEDS: POTASSIUM CHLORIDE ER 20 MEQ TAB.ER PO SCH (08:18)
--- NOTE | 2025-04-04 11:28 | P.PN ---
Subjective Progress Note Date: 04/04/25 SURGICAL PROGRESS NOTE CHIEF COMPLAINT: Anemia HISTORY OF PRESENT ILLNESS: No acute events. Patient denies abdominal pain. Denies any blood in her stools. Denies any nausea or vomiting. Patient marika salinas being discharged later today. Hemoglobin staying stable at 8.4. PHYSICAL EXAM: VITAL SIGNS: Reviewed. GENERAL: Well-developed in no acute distress. ABDOMEN: Soft. Nondistended. Nontender. NEUROLOGIC: Alert and oriented. Cranial nerves II through XII grossly intact. ASSESSMENT: 1. Severe anemia. No evidence of active GI bleed. Hemoglobin stable. 2. History of B-cell lymphoma and antiphospholipid antibody syndrome PLAN: - No plans for endoscopy at this time. However, if requested by hematology/oncology it can be performed. - Patient can be discharge from surgical standpoint when medically cleared Physician Dog License Officer Supervisor note has been reviewed by physician. Signing provider agrees with the documented findings, assessment, and plan of care. Objective - Vital Signs Vital signs: Vital Signs Temp 98.0 F 04/04/25 08:11 Pulse 83 04/04/25 08:11 Resp 16 04/04/25 08:11 BP 101/62 04/04/25 08:11 Pulse Ox 99 04/04/25 08:11 FiO2 Intake & Output 04/03/25 04/04/25 04/04/25 18:59 06:59 18:59 Intake Total 1080 540 118 Output Total 1550 700 Balance -470 -160 118 Weight 73 kg Intake: Oral 1080 540 118 Output: Urine 1550 700 Other: Voiding Method Toilet - Labs CBC & Chem 7: 04/04/25 06:05 04/04/25 06:05 Labs: Abnormal Lab Results - Last 24 Hours (Table) 04/03/25 04/04/25 04/04/25 Range/Units 07:00 06:05 06:05 RBC 2.13 L (4.10-5.20) 10*6/uL Hgb 8.4 L (12.0-15.0) g/dL Hct 24.0 L (37.2-46.3) % MCV 112.7 H (80.0-97.0) fL MCH 39.4 H (27.0-32.0) pg MPV 9.2 L (9.5-12.2) fL Immature Gran # 0.07 H (0.00-0.04) 10*3/uL Retic Count 10.46 H (0.10-1.80) % Sodium 135 L (137-145) mmol/L Potassium 3.4 L (3.5-5.1) mmol/L BUN 33 H (7-17) mg/dL Glucose 145 H (74-99) mg/dL Total Bilirubin 5.1 H (0.2-1.3) mg/dL Total Protein 5.4 L (6.3-8.2) g/dL
[2025-04-04 11:30] VITALS: BP 114/73; PULSE 82
--- NOTE | 2025-04-04 14:50 | P.PN ---
Subjective Progress Note Date: 04/04/25 Patient is a 84-year-old female with a history of low-grade B-cell lymphoma status post chemotherapy following Dr. Eid, antiphospholipid syndrome not on anticoagulation, severe aortic stenosis status post TAVR and CAD status post 2 stents 3 years ago at [facility], hypertension, hyperlipidemia and asthma was sent to the ER after she was evaluated by her primary detention worker Dr. Tinoco at the office. Patient has been endorsing worsening exertional dyspnea with fatigue and lower extremity swelling for more than a month. Patient reports no chest pain, syncope or presyncope. Denies orthopnea and PND. Patient denies abdominal pain, bloody or tarry colored stools, nausea, vomiting, fever or chills. Patient is found to be severely anemic with initial hemoglobin level of 6.5 and subsequently 5.0. Patient denies any active bleeding. 2 units of packed RBC has been ordered. Patient continues to feel short of breath. Her most recent echocardiogram is from 07/12 revealing LVEF of 55 to 60% with se matt aortic stenosis. Labs and images: WBC 9.5, globin 5.0, MCV 127.5, reticulocyte count 20.53, haptoglobin 67.6, D- dimer 1.59, sodium 134, potassium 4.0, BUN 19, creatinine 0.94, LDH 331, troponin 0.166, 0.219, 0.392, TSH 2.21, NT proBNP 8970 Chest x-ray shows pulmonary vascular congestion with bilateral pleural effusions Initial EKG shows sinus tachycardia Subsequent EKG sinus rhythm with with nonspecific ST to T wave changes. Echocardiogram shows LVEF of 45 to 50% with severe degeneration of the mitral valve with restricted posterior mitral leaflet. Moderate MR and mild MS. Bioprosthetic aortic valve with mild to moderate stenosis. Moderate tricuspid regurgitation with severe pulmonary hypertension with RVSP estimated at 55 mmHg. Progress note 04/01/2025 Seen and examined at bedside this a.m. BP 102/58, heart rate 100 bpm, sinus tachycardia Labs hemoglobin 8.7, WBC 12.6, BUN 22, creatinine 1.03, stool occult blood negative Echocardiogram showed EF of 45 to 50%, mild concentric LVH, no RWMA, severe LA dilatation with elevated LA filling pressures, degeneration of mitral valve with restricted posterior mitral leaflet with moderate regurgitation mild stenosis, bioprosthetic aortic valve with moderate stenosis likely worsened from high output state, moderate tricuspid regurgitation RVSP 55 mmHg 04/02/2025 Seen and examined at bedside this a.m. BP 101/59, heart rate 85 Sinus rhythm on telemetry BUN is 31, creatinine is 1.07 I will discontinue IV diuretics and changed to p.o. will not add beta-christ because of high output state and need for higher heart rates because of anemia. Hemoglobin did drop today to 7.4 with low MCH. For some reason her aspirin is held which I will resume again. 04/03/2025 Hb 8.5, BUN 37, creatinine 1.13 bilirubin 4.8 Hb 111/68, heart rate 91, sinus rhythm 04/04/2025: Patient seen and examined at the bedside. No acute events overnight. Hemoglobin is stable. No active bleeding. Denies abdominal pain. 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 # Ischemic cardiomyopathy # Acute HFrEF # Type II NSTEMI from demand supply mismatch #History of CAD status post 2 stents #History of severe aortic stenosis status post TAVR #Antiphospholipid syndrome #Asthma Plan: Resume aspirin 81 mg, Lipitor 40 mg, Lasix 40 p.o. twice daily. Aldactone 12.5 mg daily, lisinopril 5 mg daily Optimize GDMT as blood pressure heart rate tolerates Monitor kidney function Appreciate recommendations from hematology team regarding anemia. Anticipate discharge in next 24 to 48 hours. Recommended repeating outpatient echocardiogram for mitral valve evaluation in next 1 to 2 months Patient is cleared from cardiology standpoint. Patient to follow-up with Dr. Tinoco as an outpatient within 2 to 3 weeks Objective - Vital Signs Vital signs: Vital Signs Temp 98.0 F 04/04/25 08:11 Pulse 82 04/04/25 11:29 Resp 16 04/04/25 11:29 BP 114/73 04/04/25 11:29 Pulse Ox 99 04/04/25 11:29 FiO2 Intake & Output 0704/04/25 04/04/25 18:59 06:59 18:59 Intake Total 1080 540 236 Output Total 6430 389 8815 Balance -659 -516 -5285 Weight 73 kg Intake: Oral 1080 540 236 Output: Urine 9726 678 7587 Other: Voiding Method Toilet - Labs CBC & Chem 7: 04/04/25 06:05 04/04/25 06:05 Labs: Abnormal Lab Results - Last 24 Hours (Table) 04/04/25 04/04/25 Range/Units 06:05 06:05 RBC 2.13 L (4.10-5.20) 10*6/uL Hgb 8.4 L (12.0-15.0) g/dL Hct 24.0 L (37.2-46.3) % MCV 112.7 H (80.0-97.0) fL MCH 39.4 H (27.0-32.0) pg MPV 9.2 L (9.5-12.2) fL Immature Gran # 0.07 H (0.00-0.04) 10*3/uL Sodium 135 L (137-145) mmol/L Potassium 3.4 L (3.5-5.1) mmol/L BUN 33 H (7-17) mg/dL Glucose 145 H (74-99) mg/dL Total Bilirubin 5.1 H (0.2-1.3) mg/dL Total Protein 5.4 L (6.3-8.2) g/dL
--- NOTE | 2025-04-04 15:23 | P.DS ---
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 She says that she was being managed with oral prednisone for an asthma exacerbation aprox a month ago, since then she has been experiencing shortness of breath and palpitations, she had an appointment with Dr. Tinoco outpatient and he advised her to report directly to the ER. She denies fever, chills, dizziness, chest pain, dark stool, blood in stool, active bleeding, In the ER she got a Chest Xray and CT PE. Both revealed mild pulmonary edema w/o evidence of PE. EKG done showed heart rate of 110 (sinus tachy) CBC showed Hbg of 6.5 and 5.0 on subsequent test. WBC: 9.52, Plt: 196, Reticulocyte count 20.5. At this point she was admitted to the medicine team with consults with oncology and cardiology. While admitted the patient had blood work that revealed an elevated bilirubin and LDH the oncology team determined that anemia due to autoimmune hemolysis. Patient was started on IV prednisone as well as received 2 units of packed red blood cells. On subsequent measurement hemoglobin increased to 8.7 with downtrending LDH and bilirubin. Following day hemoglobin decreased to 7.4 however LDH and bilirubin did not increase. In addition the patient was seen and evaluated by cardiology for acute systolic heart failure secondary to sup ply/demand mismatch. She was started on guideline directed medical therapy for systolic heart failure. Patient began to feel dizzy and lisinopril was discontinued, patient no longer feeling dizzy. At time of discharge patient is hemodynamically stable, hemoglobin has stabilized at 8.4, she is sent home on guideline directed medical therapy for CHF as well as prednisone taper. Patient has follow-up with cardiology heme-onc and primary care. Pt seen and examined at bedside: At time of discharge patient is feeling good, she is able to walk around by herself and take care of herself. Vital signs reveiwed and stable: General: non toxic, no distress, appears at stated age, normal weight Derm: no unusual rashes/lesions, warm Head: atraumatic, normocephalic, symmetric Eyes: EOMI, no lid lag, anicteric sclera, pupils equal round reactive to light ENT: Nose and ears atraumatic Neck: No cervical lymphadenopathy, trachea midline, supple Mouth: no lip lesion, mucus membranes moist Cardiovascular: S1S2 reg, no murmur, positive dorsalis pedis pulse bilateral, no edema Lungs: Decreased air entry bilaterally, no rhonchi, no rales, no accessory muscle use Abdominal: soft, nontender to palpation, no guarding Ext: muscle strength 5 out of 5 in all 4 extremities grossly, no gross muscle atrophy, no contractures, Neuro: CN II-XI grossly intact, no gross focal neuro deficits Psych: Alert, oriented, appropriate affect A total of 30 minutes were spent preparing this complex discarge summary. Patient was discharged on 04/04. Patient Condition at Discharge: Serious Plan - Discharge Summary Discharge Rx Participant: No New Discharge Prescriptions: New predniSONE [Deltasone] 20 mg PO DAILY #98 tab Pantoprazole [Protonix] 40 mg PO DAILY #60 tab Continue Montelukast [Singulair] 10 mg PO HS Levothyroxine Sodium [Synthroid] 50 mcg PO DAILY Cetirizine HCl 10 mg PO DAILY Aspirin EC [Ecotrin Low Dose] 81 mg PO DAILY Furosemide [Lasix] 20 mg PO DAILY PRN PRN Reason: Edema Atorvastatin [Lipitor] 40 mg PO HS Albuterol Nebulized [Ventolin Nebulized] 2.5 mg INHALATION RT-TID PRN PRN Reason: Shortness Of Breath Multivitamins, Thera [Multivitamin (formulary)] 1 tab PO DAILY Cholecalciferol [Vitamin D3 (25 Mcg = 1000 Iu)] 25 mcg PO BID Latanoprost [Xalatan 0.005%] 1 drop BOTH EYES HS polyethylene glycoL 3350 [Miralax] 0.33 tsp PO DAILY Sodium Chloride [Saline Nasal [place]] 1 spray EA NOSTRIL HS ramipriL 5 mg PO DAILY Potassium Chloride ER [K-Dur 10] 10 meq PO DAILY PRN PRN Reason: W/LASIX Brimonidine Tartrate [Alphagan P 0.2% Ophth Soln] 1 drops BOTH EYES BID Discharge Medication List Levothyroxine Sodium [Synthroid] 50 mcg PO DAILY 07/30/16 [History] Montelukast [Singulair] 10 mg PO HS 07/30/16 [History] Aspirin EC [Ecotrin Low Dose] 81 mg PO DAILY 03/20/19 [History] Cetirizine HCl 10 mg PO DAILY 03/20/19 [History] Cholecalciferol [Vitamin D3 (25 Mcg = 1000 Iu)] 25 mcg PO BID 07/03/21 [History] Latanoprost [Xalatan 0.005%] 1 drop BOTH EYES HS 07/03/21 [History] Sodium Chloride [Saline Nasal [place]] 1 spray EA NOSTRIL HS 08/27/21 [History] polyethylene glycoL 3350 [Miralax] 0.33 tsp PO DAILY 08/27/21 [History] Albuterol Nebulized [Ventolin Nebulized] 2.5 mg INHALATION RT-TID PRN 03/30/25 [History] Atorvastatin [Lipitor] 40 mg PO HS 03/30/25 [History] Brimonidine Tartrate [Alphagan P 0.2% Ophth Soln] 1 drops BOTH EYES BID 03/30/25 [History] Furosemide [Lasix] 20 mg PO DAILY PRN 03/30/25 [History] Multivitamins, Thera [Multivitamin (formulary)] 1 tab PO DAILY 03/30/25 [History] Potassium Chloride ER [K-Dur 10] 10 meq PO DAILY PRN 03/30/25 [History] ramipriL 5 mg PO DAILY 03/30/25 [History] Pantoprazole [Protonix] 40 mg PO DAILY #60 tab 04/04/25 [Rx] predniSONE [Deltasone] 20 mg PO DAILY #98 tab 04/04/25 [Rx] Follow up Appointment(s)/Referral(s): Evelina Tinoco MD [STAFF PHYSICIAN] - 1 Week Yoav Webb MD [STAFF PHYSICIAN] - 1 Week Isaak Caceres MD [Primary Care Provider] - 1-2 days Patient Instructions/Handouts: Hemolytic Anemia (DC) Discharge Disposition: HOME SELF-CARE
--- NOTE | 2025-04-04 17:50 | P.PN ---
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 Her hemoglobin is stable today at 8.4 Objective - Vital Signs Vital signs: Vital Signs Temp 98.0 F 04/04/25 08:11 Pulse 82 04/04/25 11:29 Resp 16 04/04/25 11:29 BP 114/73 04/04/25 11:29 Pulse Ox 99 04/04/25 11:29 FiO2 Intake & Output 04/03/25 04/04/25 04/04/25 18:59 06:59 18:59 Intake Total 1080 540 236 Output Total 1550 700 900 Balance -470 -184 -964 Weight 73 kg Intake: Oral 1080 540 236 Output: Urine 1550 700 900 Other: Voiding Method Toilet - Constitutional General appearance: Present: average body habitus, cooperative, no acute distress - EENT Eyes: Present: anicteric sclerae, EOMI ENT: Present: hearing grossly normal - Respiratory Details: resp unlabored at rest - Cardiovascular Details: skin warm and dry - Peripheral edema foot Peripheral Edema: bilateral: None - Neurologic Neurologic: Present: CNII-XII intact - Musculoskeletal Musculoskeletal: Present: strength equal bilaterally - Psychiatric Psychiatric: Present: A&O x's 3, appropriate affect, intact judgment & insight - Labs CBC & Chem 7: 04/04/25 06:05 04/04/25 06:05 Labs: Abnormal Lab Results - Last 24 Hours (Table) 04/04/25 04/04/25 Range/Units 06:05 06:05 RBC 2.13 L (4.10-5.20) 10*6/uL Hgb 8.4 L (12.0-15.0) g/dL Hct 24.0 L (37.2-46.3) % MCV 112.7 H (80.0-97.0) fL MCH 39.4 H (27.0-32.0) pg MPV 9.2 L (9.5-12.2) fL Immature Gran # 0.07 H (0.00-0.04) 10*3/uL Sodium 135 L (137-145) mmol/L Potassium 3.4 L (3.5-5.1) mmol/L BUN 33 H (7-17) mg/dL Glucose 145 H (74-99) mg/dL Total Bilirubin 5.1 H (0.2-1.3) mg/dL Total Protein 5.4 L (6.3-8.2) g/dL Assessment and Plan (1) Hemolytic anemia Status: Acute Priority: High Code(s): D58.9 - HEREDITARY HEMOLYTIC ANEMIA, UNSPECIFIED SNOMED Code(s): 46573235 (2) Marginal zone lymphoma Status: Acute Priority: High Code(s): C85.80 - OTH TYPES OF NON-HODGKIN LYMPHOMA, UNSPECIFIED SITE SNOMED Code(s): 894950630 Plan: Autoimmune hemolytic anemia - Patient's presentation, laboratory workup, most consistent with 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 This prescription has been sent to the pharmacy - PPI ordered. Patient will take while she is on prednisone taper - Weekly CBCs recommended. Patient is asking for her home health nurse to be able to draw the same labs. We will see what we can figure out. Marginal zone lymphoma - Patient will be evaluated by primary oncologist in the outpatient setting. Patient may require some monoclonal antibody therapy. This will be set up in the outpatient setting Doctor attests: I performed a history and physical examination of this patient, developed impression and plan of care. Discussed with dictator. I agree with dictators note, documented as a scribe.
== END 2025-04-04 15:49 | disposition home or self-care (01) | DRG 840 ==
LOC: EC 16:04 → 3SCARD 19:41
PROVIDERS: ADMIT Hospitalist; ATTEND Hospitalist
PROC: 30233N1 Transfusion of Nonautologous Red Blood Cells into Peripheral Vein, Percutaneous Approach (ICD-10-PCS; principal; 2025-03-31)
DX: C83.00 Small cell B-cell lymphoma, unspecified site (principal); I21.A1 Myocardial infarction type 2; I50.23 Acute on chronic systolic (congestive) heart failure; D59.11 Warm autoimmune hemolytic anemia; D68.61 Antiphospholipid syndrome; I27.20 Pulmonary hypertension, unspecified; D72.810 Lymphocytopenia; J45.902 Unspecified asthma with status asthmaticus; I11.0 Hypertensive heart disease with heart failure; E03.9 Hypothyroidism, unspecified; I08.3 Combined rheumatic disorders of mitral, aortic and tricuspid valves; J44.89 Other specified chronic obstructive pulmonary disease; E78.5 Hyperlipidemia, unspecified; I25.10 Atherosclerotic heart disease of native coronary artery without angina pectoris; I25.5 Ischemic cardiomyopathy; K59.00 Constipation, unspecified; I95.9 Hypotension, unspecified; Z96.652 Presence of left artificial knee joint; Z95.3 Presence of xenogenic heart valve; Z79.890 Hormone replacement therapy; Z79.82 Long term (current) use of aspirin; Z79.899 Other long term (current) drug therapy; Z92.21 Personal history of antineoplastic chemotherapy; Z95.5 Presence of coronary angioplasty implant and graft
CPT/HCPCS: 36415; 36430; 71046; 71275; 80048; 80053; 81003; 82272; 82607; 82746; 83010; 83605; 83615; 83735; 83880; 84100; 84443; 84484; 85025; 85027; 85045; 85379; 85384; 85610; 85730; 86850; 86860; 86870; 86880; 86885; 86900; 86901; 86920; 86978; 93005; 93306; 94640; 96361; 96374; 96375; 96376; 99291